=== PATIENT | female | born 1965 | race Caucasian/White ===

== ENCOUNTER 2019-05-23 19:44 | Emergency (ER) | payer OTHER ==
--- NOTE | 2019-05-23 20:53 | ED Physician Documentation ---
PD HPI FEVER - Stated complaint Stated Complaint: FLU SYPMTOMS - Chief complaint Chief Complaint: Fever - History obtained from History obtained from: Patient - History of Present Illness Timing - onset: How many days ago (2-3) Timing duration: Days Timing details: Gradual onset, Waxing and waning Pain level max: 0 Pain level now: 0 Associated symptoms: NVD (nausea but denies vomiting and denies diarrhea). No: Chills, Sweats, Sinus pain, Sore throat, Dry cough, Productive cough, Dyspnea, Abdominal pain, Urinary symptoms, Rash/skin lesion Similar symptoms before: Has not had sx before Recently seen: Not recently seen - Additional information Additional information: c/o 2-3 days of nausea which is resulting in poor appetite. She tells me she feels as though she has "the flu" (per patient) but during HPI/ROS, denies fatigue, myalgias, cough, fever, chills, diaphoresis. She feels that if the nausea were controlled she would feel back to baseline. Review of Systems Constitutional: denies: Fever, Chills, Myalgias, Sweats Throat: denies: Sore throat Cardiac: reports: Reviewed and negative Respiratory: reports: Reviewed and negative GI: reports: Nausea. denies: Abdominal Pain, Abdominal Swelling, Vomiting, Constipation, Diarrhea : denies: Dysuria, Frequency PD PAST MEDICAL HISTORY - Past Medical History Cardiovascular: Hypertension Endocrine/Autoimmune: Type 2 diabetes - Past Surgical History Past Surgical History: No - Present Medications Home Medications: Ambulatory Orders Medication Instructions Recorded Confirmed Lisinopril 10 mg PO BID 12/21/13 05/23/19 Metformin HCl 500 mg PO BID 12/21/13 05/23/19 Ondansetron Odt [Zofran] 4 mg TL Q6H PRN #10 tablet 05/23/19 Simvastatin 0 mg PO DAILY 05/23/19 05/23/19 - Allergies Allergies/Adverse Reactions: Allergies Allergy/AdvReac Type Severity Reaction Status Date / Time Penicillins AdvReac Intermediate Nausea Verified 05/23/19 19:50 - Social History Does the pt smoke?: Yes Smoking Status: Former smoker Does the pt drink ETOH?: No Does the pt have substance abuse?: No PD ED PE NORMAL - Vitals Vital signs reviewed: Yes - General General: Alert and oriented X 3, No acute distress, Well developed/nourished - HEENT HEENT: PERRL, EOMI, Moist mucous membranes - Neck Neck: Supple, no meningeal sign - Cardiac Cardiac: RRR, No murmur - Respiratory Respiratory: No respiratory distress, Clear bilaterally - Abdomen Abdomen: Normal bowel sounds, Soft, Non tender, Non distended, No organomegaly - Back Back: No CVA TTP - Derm Derm: Normal color, Warm and dry Results - Vitals Vitals: Vital Signs - 24 hr 05/23/19 05/23/19 05/23/19 19:46 20:02 21:18 Temperature 35.2 C L 102.5 C H 39.6 C H Heart Rate 120 H Respiratory 22 Rate Blood Pressure 145/91 H O2 Saturation 100 05/23/19 05/23/19 21:32 22:04 Temperature 39.2 C H Heart Rate 118 H 116 H Respiratory 16 18 Rate Blood Pressure 102/62 O2 Saturation 98 96 Oxygen O2 Source Room air - Labs Labs: Laboratory Tests 05/23/19 05/23/19 21:16 21:30 POC Whole Bld Glucose 233 H Influenza A (Rapid) Negative Influenza B (Rapid) Negative PD MEDICAL DECISION MAKING - ED course Complexity details: reviewed results, re-evaluated patient, considered differential, d/w patient, d/w family ED course: Despite significant fever in ED, patient is well-appearing and benign exam. Her only c/o is nausea and she is comfortable with d/c after zofran was given. Departure - Departure Disposition: 01 Home, Self Care Clinical Impression: Nausea, Febrile disorder Condition: Good Health Concerns: nausea Plan of Treatment: antinauseant as prescribed Care Goals: symptom control Assessment: see diagnosis Instructions: ED Fever Unconf Cause, ED Nausea Vomiting Follow-Up: Keri Ochoa PA-C [Primary Care Provider] - Within 3 Days Prescriptions: Ondansetron Odt [Zofran] 4 mg TL Q6H PRN #10 tablet PRN Reason: Nausea / Vomiting Discharge Date/Time: 05/23/19 22:08
[2019-05-23] MEDS ORDERED: ONDANSETRON ODT 4 MG TABLET TL STA (21:11)
[2019-05-23] MEDS ORDERED: ONDANSETRON ODT 4 MG Prepack 2 TL STA (21:12)
[2019-05-23] MEDS ORDERED: ACETAMINOPHEN 325 MG TABLET PO STA (21:12)
[2019-05-23 22:08] VITALS: BP 102/62
== END 2019-05-23 22:08 | disposition home or self-care (01) ==
LOC: ED 19:44
DX: R11.0 Nausea (principal); R50.9 Fever, unspecified; I10 Essential (primary) hypertension; E11.9 Type 2 diabetes mellitus without complications; Z79.84 Long term (current) use of oral hypoglycemic drugs; Z87.891 Personal history of nicotine dependence
CPT/HCPCS: 87275; 87276; 99283; 99284; A9270; Q0162

== ENCOUNTER 2019-05-24 11:32 | Inpatient (IN) | payer OTHER ==
[2019-05-24 12:06] LABS: BASOPHILS % (AUTO) 0.8 %; EOSINOPHILS % (AUTO) 1.5 %; HGB - HEMOGLOBIN 14.3 g/dL (12.0-16.0); LYMPHOCYTES % (AUTO) 2.7 %; MEAN CORPUSCULAR HEMOGLOBIN 33.8 pg (27.0-31.0); MEAN CORPUSCULAR HGB CONC 35.4 g/dL (32.0-36.0); MEAN CORPUSCULAR VOLUME 95.5 fL (81.0-99.0); MEAN PLATELET VOLUME 11.4 fL (7.9-10.8); MONOCYTES % (AUTO) 5.7 %; NEUTROPHILS % (AUTO) 88.6 %; PLT - PLATELET COUNT 142 10^3/uL (130-450); RED BLOOD COUNT 4.23 10^6/uL (4.20-5.40); RED CELL DISTRIBUTION WIDTH 13.4 % (12.0-15.0)
[2019-05-24 12:20] LABS: ALBUMIN/GLOBULIN RATIO 0.6 (1.0-2.2); BILIRUBIN,TOTAL 2.7 mg/dL (0.2-1.0); CALCIUM 9.2 mg/dL (8.5-10.3); CREATININE 5.3 mg/dL (0.4-1.0); TOTAL PROTEIN 8.4 g/dL (6.7-8.2)
[2019-05-24] MEDS ORDERED: SODIUM CHLORIDE 0.9% 1,000 ML IV ONE ×2 (12:24)
[2019-05-24 12:29] LABS: ABNORMAL LYMPHS % (MANUAL) 0 %; BAND NEUTROPHILS % (MANUAL) 6 %; DIFFERENTIAL COMMENT MANUAL DIFFERENTIAL; EOSINOPHILS # (MANUAL) 0.5 10^3/uL (0-0.7); LYMPHOCYTES % (MANUAL) 6 %; METAMYELOCYTES % (MANUAL) 2 %; MONOCYTES # (MANUAL) 1.3 10^3/uL (0.0-1.0); PLATELET ESTIMATE, MANUAL NORMAL (130-450,000) (NORMAL); PLATELET MORPHOLOGY NORMAL APPEARANCE (NORMAL); RBC MORPHOLOGY (MULTIPLE) NORMAL APPEARANCE (NORMAL)
--- NOTE | 2019-05-24 12:42 | ED Physician Documentation ---
History of Present Illness - Stated complaint Stated Complaint: N/V/WEAKNESS - Chief complaint Chief Complaint: Fever - History obtained from History obtained from: Patient, Family - History of Present Illness Timing: How many days ago (4) Pain level max: 0 Pain level now: 0 Improved by: nothing Worsened by: eating - Additonal information Additional information: fever, chills, vomiting x 4 days. States given zofran yesterday. No chest pain. No diarrhea. no constipation. No abd pain. No chest pain. States unable to urinate. hx heavy etoh use. States 5-6 drinks per day and quit several days ago. Review of Systems Ten Systems: 10 systems reviewed and negative Constitutional: reports: Fever Ears: denies: Ear pain Nose: denies: Rhinorrhea / runny nose, Congestion Cardiac: denies: Chest pain / pressure Respiratory: denies: Cough GI: reports: Nausea, Vomiting. denies: Abdominal Pain, Diarrhea, Hematemesis, Bloody / black stool : denies: Dysuria Skin: denies: Rash Musculoskeletal: denies: Neck pain, Back pain Neurologic: denies: Headache PD PAST MEDICAL HISTORY - Past Medical History Past Medical History: Yes Cardiovascular: Hypertension Endocrine/Autoimmune: Type 2 diabetes - Past Surgical History Past Surgical History: No - Present Medications Home Medications: Ambulatory Orders Medication Instructions Recorded Confirmed Metformin HCl 500 mg PO BIDWM 12/21/13 05/24/19 Simvastatin 20 mg PO QPM 05/23/19 05/24/19 Lisinopril 20 mg PO BID 05/24/19 05/24/19 - Allergies Allergies/Adverse Reactions: Allergies Allergy/AdvReac Type Severity Reaction Status Date / Time Penicillins AdvReac Intermediate Nausea Verified 05/24/19 11:43 - Social History Does the pt smoke?: Yes Smoking Status: Current every day smoker Does the pt drink ETOH?: No Does the pt have substance abuse?: No PD ED PE NORMAL - Vitals Vital signs reviewed: Yes - General General: Alert and oriented X 3, No acute distress - HEENT HEENT: PERRL, Ears normal, Moist mucous membranes, Pharynx benign - Neck Neck: Supple, no meningeal sign - Cardiac Cardiac: RRR - Respiratory Respiratory: No respiratory distress, Clear bilaterally - Abdomen Abdomen: Soft, Non tender, Other (mild distention) - Back Back: No CVA TTP, No spinal TTP - Derm Derm: Warm and dry - Extremities Extremities: No edema, No calf tenderness / cord - Neuro Neuro: Alert and oriented X 3 - Psych Psych: Normal mood, Normal affect Results - Vitals Vitals: Vital Signs - 24 hr 05/24/19 05/24/19 11:39 13:25 Temperature 36.6 C 37.4 C Heart Rate 110 H 114 H Respiratory 19 18 Rate Blood Pressure 109/66 102/71 O2 Saturation 98 100 Oxygen O2 Source Room air - Labs Labs: Laboratory Tests 05/24/19 05/24/19 05/24/19 11:58 11:58 11:58 WBC 16.0 H RBC 4.23 Hgb 14.3 Hct 40.4 MCV 95.5 MCH 33.8 H MCHC 35.4 RDW 13.4 Plt Count 142 MPV 11.4 H Neut # (Auto) Not Reportable Lymph # (Auto) Not Reportable Leon # (Auto) Not Reportable Eos # (Auto) Not Reportable Baso # (Auto) Not Reportable Absolute Nucleated RBC Not Reportable Total Counted 100 Band Neuts % (Manual) 6 Abnorm Lymph % (Manual) 0 Metamyelocytes % 2 H Nucleated RBC % Not Reportable Neutrophils # (Manual) 13.0 H Lymphocytes # (Manual) 1.0 L Monocytes # (Manual) 1.3 H Eosinophils # (Manual) 0.5 Basophils # (Manual) 0.0 Differential Comment MANUAL DIFFERENTIAL Manual Slide Review Indicated Platelet Estimate NORMAL (130-450,000) Platelet Morphology NORMAL APPEARANCE RBC Morph Micro Appear NORMAL APPEARANCE PT 19.0 H INR 1.7 H APTT 31.0 Sodium 127 L Potassium 5.2 H Chloride 89 L Carbon Dioxide 17 L Anion Gap 21.0 H BUN 79 H Creatinine 5.3 H Estimated GFR (MDRD) 8 L Glucose 230 H Lactic Acid Calcium 9.2 Total Bilirubin 2.7 H AST 31 ALT 24 Alkaline Phosphatase 52 Total Protein 8.4 H Albumin 3.0 L Globulin 5.4 H Albumin/Globulin Ratio 0.6 L Lipase 15 L 05/24/19 12:45 WBC RBC Hgb Hct MCV MCH MCHC RDW Plt Count MPV Neut # (Auto) Lymph # (Auto) Leon # (Auto) Eos # (Auto) Baso # (Auto) Absolute Nucleated RBC Total Counted Band Neuts % (Manual) Abnorm Lymph % (Manual) Metamyelocytes % Nucleated RBC % Neutrophils # (Manual) Lymphocytes # (Manual) Monocytes # (Manual) Eosinophils # (Manual) Basophils # (Manual) Differential Comment Manual Slide Review Platelet Estimate Platelet Morphology RBC Morph Micro Appear PT INR APTT Sodium Potassium Chloride Carbon Dioxide Anion Gap BUN Creatinine Estimated GFR (MDRD) Glucose Lactic Acid 4.8 H* Calcium Total Bilirubin AST ALT Alkaline Phosphatase Total Protein Albumin Globulin Albumin/Globulin Ratio Lipase - Rads (name of study) CT abd/pelvis Radiology: Prelim report reviewed, EMP read contemporaneously, See rad report (Bilateral mild hydronephrosis with moderate perinephric periureteral fat stranding. No ureteral calculi. Findings worrisome for bilateral pyelonephritis) PD MEDICAL DECISION MAKING - ED course Complexity details: reviewed results, re-evaluated patient, considered differential, d/w patient, d/w family, d/w garden consultant ED course: 54-year-old female with bilateral pyelonephritis and sepsis. Acute kidney injury. Given IV fluids, IV antibiotics. Will admit for further care. 2 IVs were placed. Sepsis protocol followed. Discussed the case with Dr. Lyon who accepts This document was made in part using voice recognition software. While efforts are made to proofread this document, sound alike and grammatical errors may occur. - Sepsis Event Current Stage of Sepsis: Sepsis Possible source of Sepsis: Genitourinary Mental/Cognitive Status: Alert/Oriented X3 Capillary refill: Less than 2 seconds Peripheral Pulse Strength: 2+ Slightly Diminished Peripheral Pulse Location: Radial Bedside ultrasound performed: No Departure - Departure Disposition: 66 [facility] DC/Xfer Clinical Impression: Pyelonephritis, Dehydration, Hyponatremia, Hyperkalemia Sepsis Qualifiers: Sepsis type: sepsis due to unspecified organism Qualified Code(s): A41.9 - Sepsis, unspecified organism Acute renal failure Qualifiers: Acute renal failure type: unspecified Qualified Code(s): N17.9 - Acute kidney failure, unspecified Vomiting Qualifiers: Vomiting type: unspecified Vomiting Intractability: non-intractable Nausea presence: with nausea Qualified Code(s): R11.2 - Nausea with vomiting, unspecified Hyperglycemia due to type 2 diabetes mellitus Qualifiers: Diabetes mellitus oil heaterman insulin use: without oil heaterman use Qualified Code(s): E11.65 - Type 2 diabetes mellitus with hyperglycemia Condition: Stable Discharge Date/Time: 05/24/19 14:04
[2019-05-24 13:05] LABS: INR 1.7 (0.8-1.2)
[2019-05-24] MEDS ORDERED: SODIUM CHLORIDE 0.9% 2,177.25 ML IV STA (13:05)
[2019-05-24] MEDS ORDERED: cefTRIAXone 1 GM VIAL IVP STA ×2 (13:05→13:13)
--- NOTE | 2019-05-24 13:27 | CT Report ---
Reason: abd pain, vomiting Procedure Date: 05/24/2019 Accession Number: [id number] / [id number] Procedure: CT - Abdomen/Pelvis WO CPT Code: FULL RESULT: EXAM: CT ABDOMEN AND PELVIS (CT KUB) EXAM DATE: 05/24/2019 12:45 PM. CLINICAL HISTORY: Abd pain, vomiting. COMPARISONS: ABDOMEN/PELVIS W/ 03/04/2015 12:08 PM. TECHNIQUE: Routine axial helical CT imaging was performed through the abdomen and pelvis without IV contrast. Reconstructions: Coronal and sagittal. In accordance with CT protocol optimization, one or more of the following dose reduction techniques were utilized for this exam: automated exposure control, adjustment of mA and/or KV based on patient size, or use of iterative reconstructive technique. FINDINGS: Lung Bases: Unremarkable. Right Kidney/Ureter: No stones. Mild hydronephrosis and moderate perinephric/periureteral fat stranding. Left Kidney/Ureter: No stones. Mild hydronephrosis and moderate perinephric/periureteral fat stranding. Other Solid Organs: Nodular liver contour. Gallbladder/Bile Ducts: Unremarkable. Peritoneal Cavity: No small bowel obstruction. Normal-appearing appendix. Sigmoid diverticulosis. Pelvic Organs: Urinary bladder is decompressed. No bladder stones. Noncontrast images of the visualized pelvic organs are unremarkable. Vasculature: Unremarkable. Other: None. IMPRESSION: Bilateral mild hydronephrosis with moderate perinephric/periureteral fat stranding. No urinary calculi. Findings worrisome for bilateral pyelonephritis. [facility] The call report notification system was initiated by Dr. Joyce Villanueva at 01:19 PM on 05/24/2019. The above call report findings were discussed with Bao Bonds by Dr. Joyce Villanueva at 01:25 PM on 05/24/2019.
--- NOTE | 2019-05-24 15:54 | HISTORY & PHYSICAL EXAMINATION ---
Chief Complaint - Chief Complaint Chief Complaint: Fever, Nausea/Vomiting <Augusto Berumen - Last Filed: 05/24/19 17:51> History of Present Illness - Admitted From Admitted From:: Home - History Obtained From History obtained from: Patient <Augusto Berumen - Last Filed: 05/24/19 17:51> - History Obtained From Records Reviewed: yes Exam Limitations: none <Lila Sarmiento Jennifer - Last Filed: 05/24/19 18:54> - History of Present Illness HPI Comment/Other: Mrs. Bose was in her usual state of health until evening when she began to feel weak, "shaky", nauseated and had vomiting. She has had minimal PO intake since late on and is very dehydrated. She came to the ED last night and was sent home with PO zofran for the nausea which she reports did not help at all. She has not had a BM in 3-4 days and urine output is very low volume and brown in color, though she has the sensation that she needs to urinate. She denies any pain and has NO CVA tenderness or suprapubic pain on assessment. She has a PMH of SEGUN w/ CPAP, DMT2, HTN, and HLD for which she is on metformin, lisinopril and simvastatin. CT abdomen/pelvis shows mild hydronephrosis, negative for stones, but concerning for pyelonephritis. (Augusto Berumen) I personally examined the patient with the nurse practitioner student and agree with her findings. (Lila Sarmiento Jennifer) History - Past Medical History Cardiovascular: reports: Hypertension, High cholesterol Respiratory: reports: Sleep apnea, CPAP use (SEGUN) Neuro: reports: None Endocrine/Autoimmune: reports: Type 2 diabetes GI: reports: None : reports: None HEENT: reports: Chronic vision loss (has glasses for reading) Psych: reports: None Musculoskeletal: reports: None Derm: reports: None - Family & Social History Family History: Mother: Alive and Well, Father: ( at 86 of pancreatic CA) Family History Comment/Other: No siblings. 2 healthy children. Living arrangement: At home Living Situation: With spouse/s.o. 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 - Substance History Use: Uses substance without health or social issues: Tobacco, Alcohol Tobacco Details: Cigarettes (20 year pack history, recently cut back to 3 cigarettes/day) <Augusto Berumen - Last Filed: 05/24/19 17:51> Meds/Allgy <Augusto Berumen - Last Filed: 05/24/19 17:51> <Lila Sarmiento - Last Filed: 05/24/19 18:54> - Home Medications Home Medications: Ambulatory Orders Medication Instructions Recorded Confirmed Metformin HCl 500 mg PO BIDWM 12/21/13 05/24/19 Simvastatin 20 mg PO QPM 05/23/19 05/24/19 Lisinopril 20 mg PO BID 05/24/19 05/24/19 - Allergies Allergies/Adverse Reactions: Allergies Allergy/AdvReac Type Severity Reaction Status Date / Time Penicillins AdvReac Intermediate Nausea Verified 05/24/19 11:43 Review of Systems - Constitutional Constitutional: reports: Fatigue, Fever, Weakness - Eyes Eyes: reports: Vision loss - Ears, Nose & Throat Ears, Nose & Throat: reports: Nasal discharge, Other (dry eyes w/ tearing) - Respiratory Respiratory: reports: Cough, SOB with exertion - Gastrointestinal Gastrointestinal: reports: Nausea, Vomiting - Genitourinary Genitourinary: reports: Other (Oliguria, dark brown in color) - Musculoskeletal Musculoskeletal: reports: Muscle weakness - Neurological Neurological: reports: General weakness - Endocrine Endocrine: reports: Polydypsia - All Other Systems All Other Systems: reports: Reviewed and negative <Augusto Berumen - Last Filed: 05/24/19 17:51> - Constitutional Constitutional: reports: Fatigue, Fever, Weakness - Eyes Eyes: reports: Vision loss - Ears, Nose & Throat Ears, Nose & Throat: reports: Nasal discharge, Other - Cardiovascular Cariovascular: reports: Lightheadedness, Decr. exercise tolerance - Respiratory Respiratory: reports: Cough, SOB with exertion - Gastrointestinal Gastrointestinal: reports: Nausea, Vomiting - Genitourinary Genitourinary: reports: Other - Musculoskeletal Musculoskeletal: reports: Muscle weakness - Integumentary Integumentary: reports: Dryness - Neurological Neurological: reports: General weakness, Dizziness - Psychiatric Psychiatric: reports: Depression - Endocrine Endocrine: reports: Polydypsia - Hematologic/Lymphatic Hematologic/Lymphatic: reports: Anemia - All Other Systems All Other Systems: reports: Reviewed and negative <Lila Sarmiento - Last Filed: 05/24/19 18:54> <Augusto Berumen - Last Filed: 05/24/19 17:51> Prior Level of Functionality: Independent in ADLs (AtaAugusto) Exam - Vital Signs Reviewed Vital Signs: Yes - Physical Exam General Appearance: positive: No acute distress, Alert, Other (Obese woman, appears stated age) Eyes Bilateral: positive: Normal inspection, PERRL, No lid inflammation, Conjunctivae nml, No scleral icterus ENT: positive: No signs of dehydration Neck: positive: Nml inspection, No JVD, Trachea midline. negative: Stiff neck Respiratory: positive: Chest non-tender, No respiratory distress, Breath sounds nml Cardiovascular: positive: Regular rate & rhythm, Systolic murmur. negative: JVD present Peripheral Pulses: positive: 2+ Abdomen: positive: Non-tender, Nml bowel sounds, No distention, Hepatomegaly, Other Back: positive: Nml inspection. negative: CVA tenderness (R), CVA tenderness (L) Skin: positive: Color nml, No rash, Warm, Dry Extremities: positive: Non-tender, Full ROM, Nml appearance, No pedal edema Neurologic/Psychiatric: positive: Oriented x3, CN's nml (2-12), Motor nml, Sensation nml, Mood/affect nml. negative: Facial droop, Slurred/abnml speech <Augusto Berumen - Last Filed: 05/24/19 17:51> - Vital Signs Reviewed Vital Signs: Yes - Physical Exam General Appearance: positive: No acute distress, Alert, Other Eyes Bilateral: positive: Normal inspection, PERRL, No lid inflammation, Conj unctivae nml, No scleral icterus ENT: positive: No signs of dehydration Neck: positive: Nml inspection, No JVD, Trachea midline. negative: Stiff neck Respiratory: positive: Chest non-tender, No respiratory distress, Breath sounds nml Cardiovascular: positive: Regular rate & rhythm, Systolic murmur. negative: JVD present Peripheral Pulses: positive: 2+ Abdomen: positive: Non-tender, Nml bowel sounds, Hepatomegaly. negative: No distention Back: positive: Nml inspection. negative: CVA tenderness (R), CVA tenderness (L) Skin: positive: Color nml, No rash, Warm, Dry Extremities: positive: Non-tender, Full ROM, Nml appearance, No pedal edema Neurologic/Psychiatric: positive: Oriented x3, CN's nml (2-12), Motor nml, Sensation nml, Mood/affect nml Reflexes: Bicep (R): 3+, Bicep (L): 3+ <Lila Sarmiento Jennifer - Last Filed: 05/24/19 18:54> - Vital Signs Vital Signs: Vital Signs x48h Temp Pulse Pulse Resp BP BP Pulse Ox 05/24/19 14:43 37.4 C 110 H 20 100 05/24/19 14:30 38.5 C H 101 H 98 H 105/60 16 L 05/24/19 13:25 37.4 C 114 H 18 102/71 100 05/24/19 11:39 36.6 C 110 H 19 109/66 98 Sepsis Event Note (H) - Evaluation Current Stage of Sepsis: Sepsis Possible source of Sepsis: positive: Genitourinary - Sepsis Criteria Sepsis Criteria: Recorded Temperature greater than 38.3C or Less than 36C, Recorded Heart Rate greater than 90 bpm, WBC count greater than 10% bands, WBC count greater than 12,000 or less than 4000, Renal: urine output less than 0.5ml/kg/hr for 2 hours or creatinine gr, Metabolic: lactate > 2 mmol/L, Hepatic: Bilirubin greater than 2mg/dl <Augusto Berumen - Last Filed: 05/24/19 17:51> - Evaluation Sepsis Associated Organ Dysfunction: Liver: Tbili elevated to 2.7 Kidneys: BUN 38, Crea 5.3, Minimal UoP >2 days (Augusto Berumen) Conclusion/Plan - Problem List (1) Sepsis Conclusion/Plan: WBC 16k with L shift, neutrophils 13k. She was febrile in the ED up to 38.5, and tachycardic in 110s. End organ damaged evidenced by elevated Tbili of 2.7 and BU N & Crea 38 and 5.3 respectively. She has been oliguric for >2 days and reports a low volume, brown urine output. CT Abd/Pelvis is suspicious for pyelonephritis. There is no suprapubic pain on palpation, and no CVA tenderness bilaterally. She received 2L NS and 1gm ceftriaxone in the ED. Plan: -Cerrato catheter to obtain a urine analysis & culture. Keep in for strict I&Os. -Continue IVF NS at 150ml/hr -Empiric antibiotics with ceftriaxone IV x14 days (can switch to PO when patient's symptoms resolve and afebrile [id number]) Qualifiers: Sepsis type: sepsis due to unspecified organism Qualified Code(s): A41.9 - Sepsis, unspecified organism (2) Pyelonephritis Conclusion/Plan: Suspected due to BUN/Crea, oliguria, and CT abd/pelvis as mentioned above. Plan: -Obtain UA/C, treat with empiric Abx, Cerrato catheter, IVF, and specify Abx regimen upon identification of infectious source (3) Dehydration Conclusion/Plan: In setting of minimal to no PO intake in >3 days. She also is hyponatremic and hyperkalemic. Plan: -IV hydration (4) Hyponatremia Conclusion/Plan: Na 127 on admission. Likely in setting of hypovolemia. Consistent with patient history of nausea, vomiting and decreased PO intake. No neurological deficits or AMS at this time . Likely to resolve with IVF and with resuming oral diet. Plan: -IVF with NS -Repeat BMP in the AM (5) Hyperkalemia Conclusion/Plan: K elevated at 5.3. Probably in relation to her severe dehydration and JEFFY. Plan: -Treat dehydration per above -Recheck BMP in am -Obtain EKG to rule out any cardiac abnormalities with electrolyte derangement -Monitor on telemetry overnight (6) Type 2 diabetes mellitus Conclusion/Plan: Controlled in outpatient setting on metformin. Does not use insulin at home. blood glucose elevated to 230 on admission. Likely elevated in setting of acute infectious process. Plan: -HOLD metformin as this would worsen her lactic acidosis -Accu checks AC/HS with insulin aspart low dose sliding scale per protocol -Goal blood sugars <180 Qualifiers: Diabetes mellitus prison insulin use: without prison use Diabetes mellitus complication status: with hyperglycemia Qualified Code(s): E11.65 - Type 2 diabetes mellitus with hyperglycemia (7) Hypertension Conclusion/Plan: Blood pressures are running low 100s/70s. On lisinopril at home. Plan: -In setting of JEFFY and sepsis, will hold home lisinopril and resume when medically appropriate (8) Hyperlipidemia Conclusion/Plan: No recent lipids/triglycerides found in medical record. Last documented in 2014 shows elevated triglycerides and low HDL. Total [id number]=148 with LDL/HDL ratio 5.2. She is on simvastatin at home. Not currently having any concerning signs/symptoms of cardiac events. 10 year ASCVD score: 7.5% Plan: -Will hold simvastatin acutely until hepatic and renal function improves -Follow up in outpatient with PCP Qualifiers: Hyperlipidemia type: mixed hyperlipidemia Qualified Code(s): E78.2 - Mixed hyperlipidemia - Lab Results Lab results reviewed: Yes Fish Bones: 05/24/19 11:58 05/24/19 11:58 - Diagnostic Imaging Results Diagnostic Imaging Results: positive: Final report reviewed (CT non con Abd/Pelvis shows signs of hydronephrosis, negative for stones. Suspicious for pyelonephritis) <Augusto Berumen - Last Filed: 05/24/19 17:51> - Problem List (1) Sepsis Conclusion/Plan: See above, except, plan to change IV Rocephin based on urine culture sensitivities, and IVFs at 125 mL per hour. Lactic acid pending Q6H until normal Qualifiers: Sepsis type: sepsis due to unspecified organism Qualified Code(s): A41.9 - Sepsis, unspecified organism (2) Pyelonephritis Conclusion/Plan: Based on imaging, IV Rocephin, urine culture is pending. No flank pain, no dysuria, now with a cerrato (3) Type 2 diabetes mellitus Conclusion/Plan: Holding metformin, SSI and carb control diet Checking A1C in the AM Qualifiers: Diabetes mellitus prison insulin use: without buttermaker use Diabetes mellitus complication status: with hyperglycemia Qualified Code(s): E11.65 - Type 2 diabetes mellitus with hyperglycemia (4) Nausea Conclusion/Plan: - Poor appetite for the past several days - Likely due to acute infection - Nausea resolved on exam Plan: Encourage PO diet, treat symptoms (5) Acute renal failure Conclusion/Plan: - Creatinine of 5.3, baseline last known was ~1.0 - Elevated BUN of 79 - Suspect due to pyelonephritis, dehydration - Holding lisinopril, avoid nephrotoxins - IV fluids at 125 mL per hour Plan: continue IV fluids, routine labs in the AM Qualifiers: Acute renal failure type: unspecified Qualified Code(s): N17.9 - Acute kidney failure, unspecified (6) SEGUN on CPAP Conclusion/Plan: - Patient has brought in her home CPAP implying compliance Plan: order home cpap (7) Hyperlipidemia Qualifiers: Hyperlipidemia type: mixed hyperlipidemia Qualified Code(s): E78.2 - Mixed hyperlipidemia - Lab Results Lab results reviewed: Yes Fish Bones: 05/24/19 11:58 05/24/19 11:58 - Diagnostic Imaging Results Diagnostic Imaging Results: positive: Final report reviewed <Lila Sarmiento - Last Filed: 05/24/19 18:54> - Lab Results Other Lab Results: Laboratory Tests 05/24/19 05/24/19 05/24/19 11:58 11:58 11:58 WBC 16.0 H RBC 4.23 Hgb 14.3 Hct 40.4 MCV 95.5 MCH 33.8 H MCHC 35.4 RDW 13.4 Plt Count 142 MPV 11.4 H Neut # (Auto) Not Reportable Lymph # (Auto) Not Reportable [place] # (Auto) Not Reportable Eos # (Auto) Not Reportable Baso # (Auto) Not Reportable Absolute Nucleated RBC Not Reportable Total Counted 100 Band Neuts % (Manual) 6 Abnorm Lymph % (Manual) 0 Metamyelocytes % 2 H Nucleated RBC % Not Reportable Neutrophils # (Manual) 13.0 H Lymphocytes # (Manual) 1.0 L Monocytes # (Manual) 1.3 H Eosinophils # (Manual) 0.5 Basophils # (Manual) 0.0 Differential Comment MANUAL DIFFERENTIAL Manual Slide Review Indicated Platelet Estimate NORMAL (130-450,000) Platelet Morphology NORMAL APPEARANCE RBC Morph Micro Appear NORMAL APPEARANCE PT 19.0 H INR 1.7 H APTT 31.0 Sodium 127 L Potassium 5.2 H Chloride 89 L Carbon Dioxide 17 L Anion Gap 21.0 H BUN 79 H Creatinine 5.3 H Estimated GFR (MDRD) 8 L Glucose 230 H Lactic Acid Calcium 9.2 Total Bilirubin 2.7 H AST 31 ALT 24 Alkaline Phosphatase 52 Total Protein 8.4 H Albumin 3.0 L Globulin 5.4 H Albumin/Globulin Ratio 0.6 L Lipase 15 L Urine Color Urine Clarity Urine pH Ur Specific [place] Urine Protein Urine Glucose (UA) Urine Ketones Urine Occult Blood Urine Nitrite Urine Bilirubin Urine Urobilinogen Ur Leukocyte Esterase Urine RBC Urine WBC Ur Squamous Epith Cells Amorphous Sediment Urine Bacteria Ur Microscopic Review Urine Culture Comments Urine Opiates Screen Ur Oxycodone Screen Urine Methadone Screen Ur Propoxyphene Screen Ur Barbiturates Screen Ur Tricyclics Screen Ur Phencyclidine Scrn Ur Amphetamine Screen U Methamphetamines Scrn U Benzodiazepines Scrn Urine Cocaine Screen U Cannabinoids Screen 05/24/19 05/24/19 12:45 16:15 WBC RBC Hgb Hct MCV MCH MCHC RDW Plt Count MPV Neut # (Auto) Lymph # (Auto) [place] # (Auto) Eos # (Auto) Baso # (Auto) Absolute Nucleated RBC Total Counted Band Neuts % (Manual) Abnorm Lymph % (Manual) Metamyelocytes % Nucleated RBC % Neutrophils # (Manual) Lymphocytes # (Manual) Monocytes # (Manual) Eosinophils # (Manual) Basophils # (Manual) Differential Comment Manual Slide Review Platelet Estimate Platelet Morphology RBC Morph Micro Appear PT INR APTT Sodium Potassium Chloride Carbon Dioxide Anion Gap BUN Creatinine Estimated GFR (MDRD) Glucose Lactic Acid 4.8 H* Calcium Total Bilirubin AST ALT Alkaline Phosphatase Total Protein Albumin Globulin Albumin/Globulin Ratio Lipase Urine Color ORANGE Urine Clarity CLOUDY Urine pH 6.0 Ur Specific [place] 1.020 Urine Protein 100 H Urine Glucose (UA) NEGATIVE Urine Ketones NEGATIVE Urine Occult Blood LARGE H Urine Nitrite NEGATIVE Urine Bilirubin NEGATIVE Urine Urobilinogen 1 (NORMAL) Ur Leukocyte Esterase TRACE H Urine RBC 6-10 H Urine WBC >25 H Ur Squamous Epith Cells FEW Squamous Amorphous Sediment Marked Urine Bacteria Many H Ur Microscopic Review INDICATED Urine Culture Comments INDICATED Urine Opiates Screen NEGATIVE Ur Oxycodone Screen NEGATIVE Urine Methadone Screen NEGATIVE Ur Propoxyphene Screen NEGATIVE Ur Barbiturates Screen NEGATIVE Ur Tricyclics Screen NEGATIVE Ur Phencyclidine Scrn NEGATIVE Ur Amphetamine Screen NEGATIVE U Methamphetamines Scrn NEGATIVE U Benzodiazepines Scrn NEGATIVE Urine Cocaine Screen NEGATIVE U Cannabinoids Screen NEGATIVE (Augusto Berumen) - Diagnostic Imaging Results Diagnostic Imaging Results Comments: EXAM: CT ABDOMEN AND PELVIS (CT KUB) EXAM DATE: 05/24/2019 12:45 PM. IMPRESSION: Bilateral mild hydronephrosis with moderate perinephric/periureteral fat stranding. No urinary calculi. Findings worrisome for bilateral py elonephritis. (Lila Sarmiento) - EKG Results EKG Findings: No EKG done in ED, will order now (Augusto Berumen) Core Measures - Anticipated LOS I expect patient to be DC'd or transferred within 96 hours.: Yes - DVT/VTE - Prophylaxis VTE/DVT Device ordered at admit?: Yes <Augusto Berumen - Last Filed: 05/24/19 17:51> - Anticipated LOS I expect patient to be DC'd or transferred within 96 hours.: Yes - DVT/VTE - Prophylaxis VTE/DVT Device ordered at admit?: Yes VTE/DVT Prophylaxis med ordered at admit?: No Not Ordered - Medical Reason: Contraindicated - Stroke - Rehab Assessment Rehab services assessment to be ordered?: No Not Ordered - Medical Reason: Contraindicated - AMI - Statin at Admit Aspirin Prescribed on Admit: No Not Ordered - Medical Reason: Contraindicated <Lila Sarmiento - Last Filed: 05/24/19 18:54>
[2019-05-24 16:26] LABS: BILIRUBIN,URINE NEGATIVE (NEGATIVE); GLUCOSE, URINE (UA) NEGATIVE (NEGATIVE); KETONES,URINE (UA) NEGATIVE (NEGATIVE); LEUKOCYTE ESTERASE, URINE TRACE (NEGATIVE); MUDS CUTOFF CONCENTRATIONS CUTOFF CONC BELOW:; NITRITE,URINE NEGATIVE (NEGATIVE); OCCULT BLOOD,URINE LARGE (NEGATIVE); PROTEIN,URINE 100 mg/dL (NEGATIVE); UROBILINOGEN,URINE 1 (NORMAL) E.U./dL (NORMAL)
[2019-05-24 16:35] LABS: CLARITY,URINE CLOUDY (CLEAR)
[2019-05-24 16:36] LABS: AMORPHOUS SEDIMENT,UR Marked /LPF; BACTERIA,URINE Many /HPF (None Seen); SQUAMOUS EPITHELIAL CELL,UR FEW Squamous (<= Few)
[2019-05-24 16:38] LABS: AMPHETAMINE SCREEN,URINE NEGATIVE (NEGATIVE); BENZODIAZEPINES SCREEN, URINE NEGATIVE (NEGATIVE); COCAINE SCREEN URINE NEGATIVE (NEGATIVE); METHADONE SCREEN, URINE NEGATIVE (NEGATIVE); METHAMPHETAMINES SCREEN, URINE NEGATIVE (NEGATIVE); OPIATE SCREEN, URINE NEGATIVE (NEGATIVE); OXYCODONE SCREEN, URINE NEGATIVE (NEGATIVE); PROPOXYPHENE SCREEN, URINE NEGATIVE (NEGATIVE); TRICYCLIC ANTIDEPRESSANT,URINE NEGATIVE (NEGATIVE)
[2019-05-24] MEDS: SODIUM CHLORIDE FLUSH 0.9% 10 ML SYRINGE IVP SCH (17:02)
[2019-05-24] MEDS: ACETAMINOPHEN 325 MG TABLET PO PRN (21:25)
[2019-05-24] MEDS: INSULIN ASPART 300 UNIT/3 ML PEN SUBQ SCH (21:25)
[2019-05-24] MEDS: INSULIN GLARGINE 300 UNIT/3 ML PEN SUBQ SCH (21:26)
[2019-05-24] MEDS: SODIUM CHLORIDE 0.9% 1,000 ML IV SCH (21:37)
[2019-05-24] MEDS ORDERED: CEFEPIME 1 GM in SODIUM CHLORIDE 0.9% MINIBAG 100 ML IV SCH (23:00)
[2019-05-25] MEDS: SODIUM CHLORIDE FLUSH 0.9% 10 ML SYRINGE IVP SCH ×4 (00:53→23:47)
[2019-05-25 01:18] LABS: CALCIUM 8.1 mg/dL (8.5-10.3); CREATININE 5.1 mg/dL (0.4-1.0)
[2019-05-25] MEDS: ACETAMINOPHEN 325 MG TABLET PO PRN (05:19)
[2019-05-25 05:29] LABS: BASOPHILS % (AUTO) 0.1 %; EOSINOPHILS % (AUTO) 1.1 %; HGB - HEMOGLOBIN 13.8 g/dL (12.0-16.0); LYMPHOCYTES % (AUTO) 2.9 %; MEAN CORPUSCULAR HEMOGLOBIN 33.4 pg (27.0-31.0); MEAN CORPUSCULAR HGB CONC 34.8 g/dL (32.0-36.0); MEAN CORPUSCULAR VOLUME 95.9 fL (81.0-99.0); MEAN PLATELET VOLUME 12.1 fL (7.9-10.8); MONOCYTES % (AUTO) 5.2 %; NEUTROPHILS % (AUTO) 90.1 %; PLT - PLATELET COUNT 86 10^3/uL (130-450); RED BLOOD COUNT 4.13 10^6/uL (4.20-5.40); WHITE BLOOD COUNT 12.5 x10^3/uL (4.8-10.8)
[2019-05-25] MEDS: SODIUM CHLORIDE FLUSH 0.9% 10 ML SYRINGE IVP PRN ×2 (05:31→09:11)
[2019-05-25 05:42] LABS: CALCIUM 8.2 mg/dL (8.5-10.3)
[2019-05-25 05:43] LABS: ALBUMIN 2.6 g/dL (3.2-5.5); ALBUMIN/GLOBULIN RATIO 0.6 (1.0-2.2); BILIRUBIN,TOTAL 2.6 mg/dL (0.2-1.0); MAGNESIUM 1.4 mg/dL (1.7-2.8); TOTAL PROTEIN 7.1 g/dL (6.7-8.2)
[2019-05-25 05:47] LABS: ABNORMAL LYMPHS % (MANUAL) 0 %
[2019-05-25 05:53] LABS: BAND NEUTROPHILS % (MANUAL) 4 %; LYMPHOCYTES # (MANUAL) 0.5 10^3/uL (1.5-3.5); LYMPHOCYTES % (MANUAL) 4 %; RBC MORPHOLOGY (MULTIPLE) NORMAL APPEARANCE (NORMAL)
[2019-05-25 05:54] LABS: DIFFERENTIAL COMMENT MANUAL DIFFERENTIAL; PLATELET ESTIMATE, MANUAL DECREASED (<130,000) (NORMAL); PLATELET MORPHOLOGY NORMAL APPEARANCE (NORMAL)
[2019-05-25 05:57] LABS: HB2 TOTAL 14.4 g/dL; HEMOGLOBIN A1C 0.92 g/dL
[2019-05-25] MEDS: SODIUM CHLORIDE 0.9% 1,000 ML IV SCH ×4 (06:18→19:39)
[2019-05-25] MEDS ORDERED: ACETAMINOPHEN 325 MG TABLET PO PRN (06:23)
--- NOTE | 2019-05-25 08:37 | PROVIDER PROGRESS NOTE ---
<Augusto Berumen - Last Filed: 05/25/19 19:43> Subjective - Prog Note Date Prog Note Date: 05/25/19 Prog Note Time: 08:35 - Subjective Pt reports feeling: No change (Mrs. Bose feels about the same today, still feeling very weak and fatigued. Her nausea is slightly better, has had no vomitting, but very little to no appetite, though she wants to try eating breakfast this am.) Current Medications - Current Medications Current Medications: Allergies Penicillins Adverse Reaction (Intermediate, Verified 05/24/19 11:43) Nausea Home Medications Metformin HCl 500 mg PO BIDWM 12/21/13 [History Confirmed 05/24/19] Simvastatin 20 mg PO QPM 05/23/19 [History Confirmed 05/24/19] Lisinopril 20 mg PO BID 05/24/19 [History Confirmed 05/24/19] Active Medications Generic Name Dose Route Start Last Admin Trade Name Freq PRN Reason Stop Dose Admin Acetaminophen 650 mg 05/25/19 06:23 Tylenol PO Q4HR PRN Pain or Fever > 38C (100.4F) Cefepime HCl 1 gm/ Sodium 100 mls @ 200 mls/hr 05/24/19 23:00 05/24/19 23:32 Chloride IV Infused HS BOB Infusion Sodium Chloride 1,000 mls @ 150 mls/hr 05/25/19 06:36 05/25/19 06:54 Normal Saline 0.9% IV Not Given .[id number] BOB Insulin Aspart 1 - 5 unit 05/24/19 21:00 05/24/19 21:25 Novolog SUBQ 1 unit 0800,1200,1700,2100 BOB Administration Protocol Insulin Glargine 5 unit 05/24/19 21:00 05/24/19 21:26 Lantus Solostar SUBQ 5 unit QPM BOB Administration Polyethylene Glycol 17 gm 05/25/19 09:00 Miralax PO DAILY BOB Sodium Chloride 10 ml 05/24/19 13:40 05/25/19 05:31 Normal Saline Flush 0.9% IVP 10 ml PRN PRN Administration NEEDED PER PROVIDER ORDERS Sodium Chloride 10 ml 05/24/19 17:00 05/25/19 05:25 Normal Saline Flush 0.9% IVP 10 ml 0100,0900,1700 BOB Administration Objective - Vital Signs/Intake & Output Reviewed Vital Signs: Yes Vital Signs: Vital Signs x48h Temp Pulse Resp BP Pulse Ox 05/25/19 07:55 37.5 C 99 18 133/72 H 98 05/25/19 05:05 38.1 C H 103 H 18 134/75 H 99 Intake & Output: Intake & Output 05/22/19 05/23/19 05/24/19 05/25/19 23:59 23:59 23:59 23:59 Intake Total 4615.583 1667.50 Output Total 250 275 Balance 4365.583 1392.50 - Objective General Appearance: positive: No acute distress, Alert Eyes Bilateral: positive: Normal inspection, PERRL, EOMI, No lid inflammation, Conjunctivae nml, No scleral icterus ENT: positive: No signs of dehydration Neck: positive: Nml inspection, No JVD, Trachea midline Respiratory: positive: Chest non-tender, No respiratory distress, Breath sounds nml Cardiovascular: positive: Regular rate & rhythm, No gallop, Systolic murmur Peripheral Pulses: 1+ Dorsalis pedis (R), 1+ Dorsalis pedis (L), 2+ Radial (R), 2+ Radial (L) Abdomen: positive: Nml bowel sounds, Hepatomegaly, Other (Distention). negative: No distention Back: positive: Nml inspection. negative: CVA tenderness (R), CVA tenderness (L) Skin: positive: Color nml, No rash, Warm, Dry Extremities: positive: Non-tender, Full ROM, Nml appearance, No pedal edema. negative: Calf tenderness Neurologic/Psychiatric: positive: Oriented x3, CN's nml (2-12), Motor nml, Sensation nml, Mood/affect nml, Weakness - Lab Results Fish Bones: 05/25/19 05:20 05/25/19 05:20 Other Labs: Lab Results x24hrs 05/25/19 05/25/19 05/25/19 Range/Units 07:56 05:20 05:20 WBC (4.8-10.8) x10^3/uL RBC (4.20-5.40) 10^6/uL Hgb (12.0-16.0) g/dL Hct (37.0-47.0) % MCV (81.0-99.0) fL MCH (27.0-31.0) pg MCHC (32.0-36.0) g/dL RDW (12.0-15.0) % Plt Count (130-450) 10^3/uL MPV (7.9-10.8) fL Neut # (Auto) Lymph # (Auto) [place] # (Auto) Eos # (Auto) Baso # (Auto) Absolute Nucleated RBC Total Counted Band Neuts % (Manual) (0 - 10) % Abnorm Lymph % (Manual) % Metamyelocytes % ( - 0) % Nucleated RBC % Neutrophils # (Manual) (1.5-6.6) 10^3/uL Lymphocytes # (Manual) (1.5-3.5) 10^3/uL Monocytes # (Manual) (0.0-1.0) 10^3/uL Eosinophils # (Manual) (0-0.7) 10^3/uL Basophils # (Manual) (0-0.1) 10^3/uL Differential Comment Manual Slide Review WBC Morphology (NORMAL) Platelet Estimate (NORMAL) Platelet Morphology (NORMAL) RBC Morph Micro Appear (NORMAL) PT (9.9-12.6) secs INR (0.8-1.2) APTT (24.9-33.3) secs Sodium (135-145) mmol/L Potassium (3.5-5.0) mmol/L Chloride (101-111) mmol/L Carbon Dioxide (21-32) mmol/L Anion Gap (6-13) BUN (6-20) mg/dL Creatinine (0.4-1.0) mg/dL Estimated GFR (MDRD) (>89) Glucose (70-100) mg/dL POC Whole Bld Glucose 144 H (70 - 100) mg/dL Glycated Hemoglobin 8.0 H (4.6-6.2) % Estim Average Glucose 183 H (70-100) Lactic Acid 2.3 H (0.5-2.2) mmol/L Calcium (8.5-10.3) mg/dL Phosphorus (2.5-4.6) mg/dL Magnesium (1.7-2.8) mg/dL Total Bilirubin (0.2-1.0) mg/dL Direct Bilirubin (0.1-0.5) mg/dL AST (10-42) IU/L ALT (10-60) IU/L Alkaline Phosphatase (42-121) IU/L Total Protein (6.7-8.2) g/dL Albumin (3.2-5.5) g/dL Globulin (2.1-4.2) g/dL Albumin/Globulin Ratio (1.0-2.2) Lipase (22-51) U/L Urine Color Urine Clarity (CLEAR) Urine pH (5.0-7.5) PH Ur Specific [place] (1.002-1.030) Urine Protein (NEGATIVE) mg/dL Urine Glucose (UA) (NEGATIVE) mg/dL Urine Ketones (NEGATIVE) mg/dL Urine Occult Blood (NEGATIVE) Urine Nitrite (NEGATIVE) Urine Bilirubin (NEGATIVE) Urine Urobilinogen (NORMAL) E.U./dL Ur Leukocyte Esterase (NEGATIVE) Urine RBC (0-5) /HPF Urine WBC (0-5) /HPF Ur Squamous Epith Cells (<= Few) Amorphous Sediment /LPF Urine Bacteria (None Seen) /HPF Ur Microscopic Review Urine Culture Comments Urine Opiates Screen (NEGATIVE) Ur Oxycodone Screen (NEGATIVE) Urine Methadone Screen (NEGATIVE) Ur Propoxyphene Screen (NEGATIVE) Ur Barbiturates Screen (NEGATIVE) Ur Tricyclics Screen (NEGATIVE) Ur Phencyclidine Scrn (NEGATIVE) Ur Amphetamine Screen (NEGATIVE) U Methamphetamines Scrn (NEGATIVE) U Benzodiazepines Scrn (NEGATIVE) Urine Cocaine Screen (NEGATIVE) U Cannabinoids Screen (NEGATIVE) 05/25/19 05/25/19 05/25/19 Range/Units 05:20 05:20 01:02 WBC 12.5 H (4.8-10.8) x10^3/uL RBC 4.13 L (4.20-5.40) 10^6/uL Hgb 13.8 (12.0-16.0) g/dL Hct 39.6 (37.0-47.0) % MCV 95.9 (81.0-99.0) fL MCH 33.4 H (27.0-31.0) pg MCHC 34.8 (32.0-36.0) g/dL RDW 14.0 (12.0-15.0) % Plt Count 86 L (130-450) 10^3/uL MPV 12.1 H (7.9-10.8) fL Neut # (Auto) Not Reportable Lymph # (Auto) Not Reportable [place] # (Auto) Not Reportable Eos # (Auto) Not Reportable Baso # (Auto) Not Reportable Absolute Nucleated RBC Not Reportable Total Counted 100 Band Neuts % (Manual) 4 (0 - 10) % Abnorm Lymph % (Manual) 0 % Metamyelocytes % ( - 0) % Nucleated RBC % Not Reportable Neutrophils # (Manual) 11.0 H (1.5-6.6) 10^3/uL Lymphocytes # (Manual) 0.5 L (1.5-3.5) 10^3/uL Monocytes # (Manual) 1.0 (0.0-1.0) 10^3/uL Eosinophils # (Manual) 0.0 (0-0.7) 10^3/uL Basophils # (Manual) 0.0 (0-0.1) 10^3/uL Differential Comment MANUAL DIFFERENTIAL Manual Slide Review WBC Morphology NORMAL APPEARANCE (NORMAL) Platelet Estimate DECREASED (<130,000) (NORMAL) Platelet Morphology NORMAL APPEARANCE (NORMAL) RBC Morph Micro Appear NORMAL APPEARANCE (NORMAL) PT (9.9-12.6) secs INR (0.8-1.2) APTT (24.9-33.3) secs Sodium 129 L (135-145) mmol/L Potassium 4.7 (3.5-5.0) mmol/L Chloride 96 L (101-111) mmol/L Carbon Dioxide 17 L (21-32) mmol/L Anion Gap 16.0 H (6-13) BUN 83 H* (6-20) mg/dL Creatinine 5.0 H (0.4-1.0) mg/dL Estimated GFR (MDRD) 9 L (>89) Glucose 156 H (70-100) mg/dL POC Whole Bld Glucose (70 - 100) mg/dL Glycated Hemoglobin (4.6-6.2) % Estim Average Glucose (70-100) Lactic Acid (0.5-2.2) mmol/L Calcium 8.2 L (8.5-10.3) mg/dL Phosphorus 3.0 (2.5-4.6) mg/dL Magnesium 1.4 L (1.7-2.8) mg/dL Total Bilirubin 2.6 H (0.2-1.0) mg/dL Direct Bilirubin 1.3 H (0.1-0.5) mg/dL AST 32 (10-42) IU/L ALT 22 (10-60) IU/L Alkaline Phosphatase 56 (42-121) IU/L Total Protein 7.1 (6.7-8.2) g/dL Albumin 2.6 L (3.2-5.5) g/dL Globulin 4.5 H (2.1-4.2) g/dL Albumin/Globulin Ratio 0.6 L (1.0-2.2) Lipase (22-51) U/L Urine Color Urine Clarity (CLEAR) Urine pH (5.0-7.5) PH Ur Specific [place] (1.002-1.030) Urine Protein (NEGATIVE) mg/dL Urine Glucose (UA) (NEGATIVE) mg/dL Urine Ketones (NEGATIVE) mg/dL Urine Occult Blood (NEGATIVE) Urine Nitrite (NEGATIVE) Urine Bilirubin (NEGATIVE) Urine Urobilinogen (NORMAL) E.U./dL Ur Leukocyte Esterase (NEGATIVE) Urine RBC (0-5) /HPF Urine WBC (0-5) /HPF Ur Squamous Epith Cells (<= Few) Amorphous Sediment /LPF Urine Bacteria (None Seen) /HPF Ur Microscopic Review Urine Culture Comments Urine Opiates Screen (NEGATIVE) Ur Oxycodone Screen (NEGATIVE) Urine Methadone Screen (NEGATIVE) Ur Propoxyphene Screen (NEGATIVE) Ur Barbiturates Screen (NEGATIVE) Ur Tricyclics Screen (NEGATIVE) Ur Phencyclidine Scrn (NEGATIVE) Ur Amphetamine Screen (NEGATIVE) U Methamphetamines Scrn (NEGATIVE) U Benzodiazepines Scrn (NEGATIVE) Urine Cocaine Screen (NEGATIVE) U Cannabinoids Screen (NEGATIVE) 05/25/19 05/25/19 05/24/19 Range/Units 01:02 01:02 21:01 WBC (4.8-10.8) x10^3/uL RBC (4.20-5.40) 10^6/uL Hgb (12.0-16.0) g/dL Hct (37.0-47.0) % MCV (81.0-99.0) fL MCH (27.0-31.0) pg MCHC (32.0-36.0) g/dL RDW (12.0-15.0) % Plt Count (130-450) 10^3/uL MPV (7.9-10.8) fL Neut # (Auto) Lymph # (Auto) [place] # (Auto) Eos # (Auto) Baso # (Auto) Absolute Nucleated RBC Total Counted Band Neuts % (Manual) (0 - 10) % Abnorm Lymph % (Manual) % Metamyelocytes % ( - 0) % Nucleated RBC % Neutrophils # (Manual) (1.5-6.6) 10^3/uL Lymphocytes # (Manual) (1.5-3.5) 10^3/uL Monocytes # (Manual) (0.0-1.0) 10^3/uL Eosinophils # (Manual) (0-0.7) 10^3/uL Basophils # (Manual) (0-0.1) 10^3/uL Differential Comment Manual Slide Review WBC Morphology (NORMAL) Platelet Estimate (NORMAL) Platelet Morphology (NORMAL) RBC Morph Micro Appear (NORMAL) PT (9.9-12.6) secs INR (0.8-1.2) APTT (24.9-33.3) secs Sodium 127 L (135-145) mmol/L Potassium 5.0 (3.5-5.0) mmol/L Chloride 96 L (101-111) mmol/L Carbon Dioxide 17 L (21-32) mmol/L Anion Gap 14.0 H (6-13) BUN 82 H* (6-20) mg/dL Creatinine 5.1 H (0.4-1.0) mg/dL Estimated GFR (MDRD) 9 L (>89) Glucose 172 H (70-100) mg/dL POC Whole Bld Glucose 162 H (70 - 100) mg/dL Glycated Hemoglobin (4.6-6.2) % Estim Average Glucose (70-100) Lactic Acid 2.6 H (0.5-2.2) mmol/L Calcium 8.1 L (8.5-10.3) mg/dL Phosphorus (2.5-4.6) mg/dL Magnesium (1.7-2.8) mg/dL Total Bilirubin (0.2-1.0) mg/dL Direct Bilirubin (0.1-0.5) mg/dL AST (10-42) IU/L ALT (10-60) IU/L Alkaline Phosphatase (42-121) IU/L Total Protein (6.7-8.2) g/dL Albumin (3.2-5.5) g/dL Globulin (2.1-4.2) g/dL Albumin/Globulin Ratio (1.0-2.2) Lipase (22-51) U/L Urine Color Urine Clarity (CLEAR) Urine pH (5.0-7.5) PH Ur Specific [place] (1.002-1.030) Urine Protein (NEGATIVE) mg/dL Urine Glucose (UA) (NEGATIVE) mg/dL Urine Ketones (NEGATIVE) mg/dL Urine Occult Blood (NEGATIVE) Urine Nitrite (NEGATIVE) Urine Bilirubin (NEGATIVE) Urine Urobilinogen (NORMAL) E.U./dL Ur Leukocyte Esterase (NEGATIVE) Urine RBC (0-5) /HPF Urine WBC (0-5) /HPF Ur Squamous Epith Cells (<= Few) Amorphous Sediment /LPF Urine Bacteria (None Seen) /HPF Ur Microscopic Review Urine Culture Comments Urine Opiates Screen (NEGATIVE) Ur Oxycodone Screen (NEGATIVE) Urine Methadone Screen (NEGATIVE) Ur Propoxyphene Screen (NEGATIVE) Ur Barbiturates Screen (NEGATIVE) Ur Tricyclics Screen (NEGATIVE) Ur Phencyclidine Scrn (NEGATIVE) Ur Amphetamine Screen (NEGATIVE) U Methamphetamines Scrn (NEGATIVE) U Benzodiazepines Scrn (NEGATIVE) Urine Cocaine Screen (NEGATIVE) U Cannabinoids Screen (NEGATIVE) 05/24/19 05/24/19 05/24/19 Range/Units 18:41 16:15 12:45 WBC (4.8-10.8) x10^3/uL RBC (4.20-5.40) 10^6/uL Hgb (12.0-16.0) g/dL Hct (37.0-47.0) % MCV (81.0-99.0) fL MCH (27.0-31.0) pg MCHC (32.0-36.0) g/dL RDW (12.0-15.0) % Plt Count (130-450) 10^3/uL MPV (7.9-10.8) fL Neut # (Auto) Lymph # (Auto) [place] # (Auto) Eos # (Auto) Baso # (Auto) Absolute Nucleated RBC Total Counted Band Neuts % (Manual) (0 - 10) % Abnorm Lymph % (Manual) % Metamyelocytes % ( - 0) % Nucleated RBC % Neutrophils # (Manual) (1.5-6.6) 10^3/uL Lymphocytes # (Manual) (1.5-3.5) 10^3/uL Monocytes # (Manual) (0.0-1.0) 10^3/uL Eosinophils # (Manual) (0-0.7) 10^3/uL Basophils # (Manual) (0-0.1) 10^3/uL Differential Comment Manual Slide Review WBC Morphology (NORMAL) Platelet Estimate (NORMAL) Platelet Morphology (NORMAL) RBC Morph Micro Appear (NORMAL) PT (9.9-12.6) secs INR (0.8-1.2) APTT (24.9-33.3) secs Sodium (135-145) mmol/L Potassium (3.5-5.0) mmol/L Chloride (101-111) mmol/L Carbon Dioxide (21-32) mmol/L Anion Gap (6-13) BUN (6-20) mg/dL Creatinine (0.4-1.0) mg/dL Estimated GFR (MDRD) (>89) Glucose (70-100) mg/dL POC Whole Bld Glucose (70 - 100) mg/dL Glycated Hemoglobin (4.6-6.2) % Estim Average Glucose (70-100) Lactic Acid 3.3 H* 4.8 H* (0.5-2.2) mmol/L Calcium (8.5-10.3) mg/dL Phosphorus (2.5-4.6) mg/dL Magnesium (1.7-2.8) mg/dL Total Bilirubin (0.2-1.0) mg/dL Direct Bilirubin (0.1-0.5) mg/dL AST (10-42) IU/L ALT (10-60) IU/L Alkaline Phosphatase (42-121) IU/L Total Protein (6.7-8.2) g/dL Albumin (3.2-5.5) g/dL Globulin (2.1-4.2) g/dL Albumin/Globulin Ratio (1.0-2.2) Lipase (22-51) U/L Urine Color ORANGE Urine Clarity CLOUDY (CLEAR) Urine pH 6.0 (5.0-7.5) PH Ur Specific [place] 1.020 (1.002-1.030) Urine Protein 100 H (NEGATIVE) mg/dL Urine Glucose (UA) NEGATIVE (NEGATIVE) mg/dL Urine Ketones NEGATIVE (NEGATIVE) mg/dL Urine Occult Blood LARGE H (NEGATIVE) Urine Nitrite NEGATIVE (NEGATIVE) Urine Bilirubin NEGATIVE (NEGATIVE) Urine Urobilinogen 1 (NORMAL) (NORMAL) E.U./dL Ur Leukocyte Esterase TRACE H (NEGATIVE) Urine RBC 6-10 H (0-5) /HPF Urine WBC >25 H (0-5) /HPF Ur Squamous Epith Cells FEW Squamous (<= Few) Amorphous Sediment Marked /LPF Urine Bacteria Many H (None Seen) /HPF Ur Microscopic Review INDICATED Urine Culture Comments INDICATED Urine Opiates Screen NEGATIVE (NEGATIVE) Ur Oxycodone Screen NEGATIVE (NEGATIVE) Urine Methadone Screen NEGATIVE (NEGATIVE) Ur Propoxyphene Screen NEGATIVE (NEGATIVE) Ur Barbiturates Screen NEGATIVE (NEGATIVE) Ur Tricyclics Screen NEGATIVE (NEGATIVE) Ur Phencyclidine Scrn NEGATIVE (NEGATIVE) Ur Amphetamine Screen NEGATIVE (NEGATIVE) U Methamphetamines Scrn NEGATIVE (NEGATIVE) U Benzodiazepines Scrn NEGATIVE (NEGATIVE) Urine Cocaine Screen NEGATIVE (NEGATIVE) U Cannabinoids Screen NEGATIVE (NEGATIVE) 05/24/19 05/24/19 05/24/19 Range/Units 11:58 11:58 11:58 WBC 16.0 H (4.8-10.8) x10^3/uL RBC 4.23 (4.20-5.40) 10^6/uL Hgb 14.3 (12.0-16.0) g/dL Hct 40.4 (37.0-47.0) % MCV 95.5 (81.0-99.0) fL MCH 33.8 H (27.0-31.0) pg MCHC 35.4 (32.0-36.0) g/dL RDW 13.4 (12.0-15.0) % Plt Count 142 (130-450) 10^3/uL MPV 11.4 H (7.9-10.8) fL Neut # (Auto) Not Reportable Lymph # (Auto) Not Reportable [place] # (Auto) Not Reportable Eos # (Auto) Not Reportable Baso # (Auto) Not Reportable Absolute Nucleated RBC Not Reportable Total Counted 100 Band Neuts % (Manual) 6 (0 - 10) % Abnorm Lymph % (Manual) 0 % Metamyelocytes % 2 H ( - 0) % Nucleated RBC % Not Reportable Neutrophils # (Manual) 13.0 H (1.5-6.6) 10^3/uL Lymphocytes # (Manual) 1.0 L (1.5-3.5) 10^3/uL Monocytes # (Manual) 1.3 H (0.0-1.0) 10^3/uL Eosinophils # (Manual) 0.5 (0-0.7) 10^3/uL Basophils # (Manual) 0.0 (0-0.1) 10^3/uL Differential Comment MANUAL DIFFERENTIAL Manual Slide Review Indicated WBC Morphology (NORMAL) Platelet Estimate NORMAL (130-450,000) (NORMAL) Platelet Morphology NORMAL APPEARANCE (NORMAL) RBC Morph Micro Appear NORMAL APPEARANCE (NORMAL) PT 19.0 H (9.9-12.6) secs INR 1.7 H (0.8-1.2) APTT 31.0 (24.9-33.3) secs Sodium 127 L (135-145) mmol/L Potassium 5.2 H (3.5-5.0) mmol/L Chloride 89 L (101-111) mmol/L Carbon Dioxide 17 L (21-32) mmol/L Anion Gap 21.0 H (6-13) BUN 79 H (6-20) mg/dL Creatinine 5.3 H (0.4-1.0) mg/dL Estimated GFR (MDRD) 8 L (>89) Glucose 230 H (70-100) mg/dL POC Whole Bld Glucose (70 - 100) mg/dL Glycated Hemoglobin (4.6-6.2) % Estim Average Glucose (70-100) Lactic Acid (0.5-2.2) mmol/L Calcium 9.2 (8.5-10.3) mg/dL Phosphorus (2.5-4.6) mg/dL Magnesium (1.7-2.8) mg/dL Total Bilirubin 2.7 H (0.2-1.0) mg/dL Direct Bilirubin (0.1-0.5) mg/dL AST 31 (10-42) IU/L ALT 24 (10-60) IU/L Alkaline Phosphatase 52 (42-121) IU/L Total Protein 8.4 H (6.7-8.2) g/dL Albumin 3.0 L (3.2-5.5) g/dL Globulin 5.4 H (2.1-4.2) g/dL Albumin/Globulin Ratio 0.6 L (1.0-2.2) Lipase 15 L (22-51) U/L Urine Color Urine Clarity (CLEAR) Urine pH (5.0-7.5) PH Ur Specific [place] (1.002-1.030) Urine Protein (NEGATIVE) mg/dL Urine Glucose (UA) (NEGATIVE) mg/dL Urine Ketones (NEGATIVE) mg/dL Urine Occult Blood (NEGATIVE) Urine Nitrite (NEGATIVE) Urine Bilirubin (NEGATIVE) Urine Urobilinogen (NORMAL) E.U./dL Ur Leukocyte Esterase (NEGATIVE) Urine RBC (0-5) /HPF Urine WBC (0-5) /HPF Ur Squamous Epith Cells (<= Few) Amorphous Sediment /LPF Urine Bacteria (None Seen) /HPF Ur Microscopic Review Urine Culture Comments Urine Opiates Screen (NEGATIVE) Ur Oxycodone Screen (NEGATIVE) Urine Methadone Screen (NEGATIVE) Ur Propoxyphene Screen (NEGATIVE) Ur Barbiturates Screen (NEGATIVE) Ur Tricyclics Screen (NEGATIVE) Ur Phencyclidine Scrn (NEGATIVE) Ur Amphetamine Screen (NEGATIVE) U Methamphetamines Scrn (NEGATIVE) U Benzodiazepines Scrn (NEGATIVE) Urine Cocaine Screen (NEGATIVE) U Cannabinoids Screen (NEGATIVE) ABX Reporting Has patient been on IV antibiotics over the past 48 hours?: Yes Sepsis Event Note (H) - Evaluation Current Stage of Sepsis: Sepsis Possible source of Sepsis: positive: Genitourinary - Sepsis Criteria Sepsis Criteria: Recorded Temperature greater than 38.3C or Less than 36C, Recorded Heart Rate greater than 90 bpm, WBC count greater than 10% bands, WBC count greater than 12,000 or less than 4000, Renal: urine output less than 0.5ml/kg/hr for 2 hours or creatinine gr, Metabolic: lactate > 2 mmol/L, Hepatic: Bilirubin greater than 2mg/dl Assessment/Plan - Problem List (1) Sepsis Impression: Conclusion/Plan: WBC 16k, neutrophils 13k on admit. Down to WBC 12.5 today. She has remained fe rile >38C overnight. End organ damaged evidenced by elevated Tbili of 2.7 (indirect 1.3) and BUN & Crea 38 and 5.3 respectively. No significant improvement in renal function today (only reflects ~12hr of IVF). She reports a low volume, brown urine output at home prior to admit for ~4 days. Sethi was placed yesterday and only about 250ml out in ~24hrs. She received 2L NS and 1gm ceftriaxone in the ED. Abx regimen broadened to cefepime overnight. Plan: -Continue I&Os with Sethi in place- once making adequate urine, will remove in setting of likely infection -Continue IVF NS at 150ml/hr -Empiric antibiotics with ceftriaxone IV x14 days (can switch to PO when patient's symptoms resolve and afebrile [id number])-->broadened to cefepime overnight. Given result of E.coli in blood cultures, will return Abx to ceftriaxone, but increase dose to 2gm daily. Qualifiers: Sepsis type: sepsis due to unspecified organism Qualified Code(s): A41.9 - Sepsis, unspecified organism (2) E.Coli bacteremia 4/4 blood cultures positive for gram negative bacilli, positive for E.Coli. Patient continues to be febrile, but no signs of clinical deterioration otherwise. Plan: -Will switch Abx back to Ceftriaxone, as this covers E.coli and is not renally cleared, increase dose to 2gm daily given bacteremia -Await sensitivities and if ESBL+, can switch to meropenem -Recommended duration of Abx therapy ranges from 7-14 days based on complications and clinical response to therapy. Given her suspected pyelo, and possible immunocompromised state in setting of heavy ETOH use, and DM consider Abx course of 10-14 days. (3) Pyelonephritis Conclusion/Plan: As above under sepsis, clinically improving. Continue IVF and Abx per above Plan: -Awaiting urine culture and sensitivities to narrow Abx coverage. (likely to also be E.coli) -Sethi catheter with dark yellow urine, minimal sediment. Producing ~35cc/hr -Continue IVF in setting of JEFFY (4)JEFFY Baseline crea unknown. Acute elevation likely multifactorial d/t sepsis, hypovolemia in setting of continuing to take ANA-i. Little change in Crea this AM though only after 12hr IVF. -HOLD lisinopril for now -Recheck Cr on AM labs (5) Volume depletion. Improved. Conclusion/Plan: In setting of minimal to no PO intake in >3 days. She also is hyponatremic and hyperkalemic. Appetite slowly improving. Plan: -IV hydration as mentioned above -Carb controlled diet, encourage PO fluids (6) Hyponatremia Conclusion/Plan: Na 127 on admission, improved to 129 today. Likely in setting of dehydration and hypovolemia. Consistent with patient history of nausea, vomiting and decreased PO intake. No neurological deficits or AMS at this time . Likely to resolve with IVF and with resuming oral diet. Plan: -IVF with NS -Trend daily CMP in the AM (7) Hyperkalemia Conclusion/Plan: K elevated at 5.3, down to 4.7 today. Probably in relation to her severe dehydration and JEFFY. EKG 05/24 showed NSR, borderline sinus tachy with HR 99. Plan: -Treat dehydration per above -Recheck CMP daily (8) Hypomagnesemia: Mag low 1.4 today. Plan: -Order IV repletion -Monitor on AM labs (9) Type 2 diabetes mellitus Conclusion/Plan: Controlled in outpatient setting on metformin. Does not use insulin at home. Sugars elevated in setting of infection. Plan: -HOLD metformin as this would worsen her lactic acidosis -Accu checks AC/HS with insulin aspart low dose sliding scale per protocol, low dose lantus at HS -Goal blood sugars <180 Qualifiers: Diabetes mellitus ferry terminal supervisor insulin use: without ferry terminal supervisor use Diabetes mellitus complication status: with hyperglycemia Qualified Code(s): E11.65 - Type 2 diabetes mellitus with hyperglycemia (10) Hypertension Conclusion/Plan: Blood pressures are running low 100s/70s. On lisinopril at home. Plan: -In setting of JEFFY and sepsis, will hold home lisinopril and resume when medically appropriate (11) Hyperlipidemia Conclusion/Plan: No recent lipids/triglycerides found in medical record. Last documented in 2014 shows elevated triglycerides and low HDL. Total [id number]=153 with LDL/HDL ratio 5.2. She is on simvastatin at home. Not currently having any concerning signs/symptoms of cardiac events. 10 year ASCVD score: 7.5% Plan: -Will hold simvastatin acutely until bili and renal function improves -Follow up in outpatient with PCP Qualifiers: Hyperlipidemia type: mixed hyperlipidemia Qualified Code(s): E78.2 - Mixed hyperlipidemia Qualifiers: Sepsis type: sepsis due to unspecified organism Qualified Code(s): A41.9 - Sepsis, unspecified organism (7) Type 2 diabetes mellitus Qualifiers: Diabetes mellitus nursing home insulin use: without ferry terminal supervisor use Diabetes mellitus complication status: with hyperglycemia Qualified Code(s): E11.65 - Type 2 diabetes mellitus with hyperglycemia (9) Hyperlipidemia Qualifiers: Hyperlipidemia type: mixed hyperlipidemia Qualified Code(s): E78.2 - Mixed hyperlipidemia (10) SEGUN on CPAP Impression: Home CPAP broke overnight, patient has new machine on order that should arrive today. Family plans to bring it in for her use tonight. She was placed on 2L O2 via NC overnight, sats stable. <Lila Gurrola E - Last Filed: 05/25/19 20:03> Subjective - Subjective Pt reports feeling: No change Objective - Vital Signs/Intake & Output Reviewed Vital Signs: Yes Vital Signs: Vital Signs x48h Temp Pulse Resp BP Pulse Ox 05/25/19 16:00 37.7 C H 98 18 149/93 H 97 05/25/19 13:00 37.1 C 93 16 120/73 99 Intake & Output: Intake & Output 05/22/19 05/23/19 05/24/19 05/25/19 23:59 23:59 23:59 23:59 Intake Total 4615.583 3498.75 Output Total 250 625 Balance 4365.583 2873.75 - Lab Results Fish Bones: 05/25/19 05:20 05/25/19 05:20 Other Labs: Lab Results x24hrs 05/25/19 05/25/19 05/25/19 Range/Units 16:39 11:45 07:56 WBC (4.8-10.8) x10^3/uL RBC (4.20-5.40) 10^6/uL Hgb (12.0-16.0) g/dL Hct (37.0-47.0) % MCV (81.0-99.0) fL MCH (27.0-31.0) pg MCHC (32.0-36.0) g/dL RDW (12.0-15.0) % Plt Count (130-450) 10^3/uL MPV (7.9-10.8) fL Neut # (Auto) Lymph # (Auto) [place] # (Auto) Eos # (Auto) Baso # (Auto) Absolute Nucleated RBC Total Counted Band Neuts % (Manual) (0 - 10) % Abnorm Lymph % (Manual) % Nucleated RBC % Neutrophils # (Manual) (1.5-6.6) 10^3/uL Lymphocytes # (Manual) (1.5-3.5) 10^3/uL Monocytes # (Manual) (0.0-1.0) 10^3/uL Eosinophils # (Manual) (0-0.7) 10^3/uL Basophils # (Manual) (0-0.1) 10^3/uL Differential Comment WBC Morphology (NORMAL) Platelet Estimate (NORMAL) Platelet Morphology (NORMAL) RBC Morph Micro Appear (NORMAL) Sodium (135-145) mmol/L Potassium (3.5-5.0) mmol/L Chloride (101-111) mmol/L Carbon Dioxide (21-32) mmol/L Anion Gap (6-13) BUN (6-20) mg/dL Creatinine (0.4-1.0) mg/dL Estimated GFR (MDRD) (>89) Glucose (70-100) mg/dL POC Whole Bld Glucose 142 H 157 H 144 H (70 - 100) mg/dL Glycated Hemoglobin (4.6-6.2) % Estim Average Glucose (70-100) Lactic Acid (0.5-2.2) mmol/L Calcium (8.5-10.3) mg/dL Phosphorus (2.5-4.6) mg/dL Magnesium (1.7-2.8) mg/dL Total Bilirubin (0.2-1.0) mg/dL Direct Bilirubin (0.1-0.5) mg/dL AST (10-42) IU/L ALT (10-60) IU/L Alkaline Phosphatase (42-121) IU/L Total Protein (6.7-8.2) g/dL Albumin (3.2-5.5) g/dL Globulin (2.1-4.2) g/dL Albumin/Globulin Ratio (1.0-2.2) 05/25/19 05/25/19 05/25/19 Range/Units 05:20 05:20 05:20 WBC (4.8-10.8) x10^3/uL RBC (4.20-5.40) 10^6/uL Hgb (12.0-16.0) g/dL Hct (37.0-47.0) % MCV (81.0-99.0) fL MCH (27.0-31.0) pg MCHC (32.0-36.0) g/dL RDW (12.0-15.0) % Plt Count (130-450) 10^3/uL MPV (7.9-10.8) fL Neut # (Auto) Lymph # (Auto) [place] # (Auto) Eos # (Auto) Baso # (Auto) Absolute Nucleated RBC Total Counted Band Neuts % (Manual) (0 - 10) % Abnorm Lymph % (Manual) % Nucleated RBC % Neutrophils # (Manual) (1.5-6.6) 10^3/uL Lymphocytes # (Manual) (1.5-3.5) 10^3/uL Monocytes # (Manual) (0.0-1.0) 10^3/uL Eosinophils # (Manual) (0-0.7) 10^3/uL Basophils # (Manual) (0-0.1) 10^3/uL Differential Comment WBC Morphology (NORMAL) Platelet Estimate (NORMAL) Platelet Morphology (NORMAL) RBC Morph Micro Appear (NORMAL) Sodium 129 L (135-145) mmol/L Potassium 4.7 (3.5-5.0) mmol/L Chloride 96 L (101-111) mmol/L Carbon Dioxide 17 L (21-32) mmol/L Anion Gap 16.0 H (6-13) BUN 83 H* (6-20) mg/dL Creatinine 5.0 H (0.4-1.0) mg/dL Estimated GFR (MDRD) 9 L (>89) Glucose 156 H (70-100) mg/dL POC Whole Bld Glucose (70 - 100) mg/dL Glycated Hemoglobin 8.0 H (4.6-6.2) % Estim Average Glucose 183 H (70-100) Lactic Acid 2.3 H (0.5-2.2) mmol/L Calcium 8.2 L (8.5-10.3) mg/dL Phosphorus 3.0 (2.5-4.6) mg/dL Magnesium 1.4 L (1.7-2.8) mg/dL Total Bilirubin 2.6 H (0.2-1.0) mg/dL Direct Bilirubin (0.1-0.5) mg/dL AST 32 (10-42) IU/L ALT 22 (10-60) IU/L Alkaline Phosphatase 56 (42-121) IU/L Total Protein 7.1 (6.7-8.2) g/dL Albumin 2.6 L (3.2-5.5) g/dL Globulin 4.5 H (2.1-4.2) g/dL Albumin/Globulin Ratio 0.6 L (1.0-2.2) 05/25/19 05/25/19 05/25/19 Range/Units 05:20 01:02 01:02 WBC 12.5 H (4.8-10.8) x10^3/uL RBC 4.13 L (4.20-5.40) 10^6/uL Hgb 13.8 (12.0-16.0) g/dL Hct 39.6 (37.0-47.0) % MCV 95.9 (81.0-99.0) fL MCH 33.4 H (27.0-31.0) pg MCHC 34.8 (32.0-36.0) g/dL RDW 14.0 (12.0-15.0) % Plt Count 86 L (130-450) 10^3/uL MPV 12.1 H (7.9-10.8) fL Neut # (Auto) Not Reportable Lymph # (Auto) Not Reportable [place] # (Auto) Not Reportable Eos # (Auto) Not Reportable Baso # (Auto) Not Reportable Absolute Nucleated RBC Not Reportable Total Counted 100 Band Neuts % (Manual) 4 (0 - 10) % Abnorm Lymph % (Manual) 0 % Nucleated RBC % Not Reportable Neutrophils # (Manual) 11.0 H (1.5-6.6) 10^3/uL Lymphocytes # (Manual) 0.5 L (1.5-3.5) 10^3/uL Monocytes # (Manual) 1.0 (0.0-1.0) 10^3/uL Eosinophils # (Manual) 0.0 (0-0.7) 10^3/uL Basophils # (Manual) 0.0 (0-0.1) 10^3/uL Differential Comment MANUAL DIFFERENTIAL WBC Morphology NORMAL APPEARANCE (NORMAL) Platelet Estimate DECREASED (<130,000) (NORMAL) Platelet Morphology NORMAL APPEARANCE (NORMAL) RBC Morph Micro Appear NORMAL APPEARANCE (NORMAL) Sodium (135-145) mmol/L Potassium (3.5-5.0) mmol/L Chloride (101-111) mmol/L Carbon Dioxide (21-32) mmol/L Anion Gap (6-13) BUN (6-20) mg/dL Creatinine (0.4-1.0) mg/dL Estimated GFR (MDRD) (>89) Glucose (70-100) mg/dL POC Whole Bld Glucose (70 - 100) mg/dL Glycated Hemoglobin (4.6-6.2) % Estim Average Glucose (70-100) Lactic Acid 2.6 H (0.5-2.2) mmol/L Calcium (8.5-10.3) mg/dL Phosphorus (2.5-4.6) mg/dL Magnesium (1.7-2.8) mg/dL Total Bilirubin (0.2-1.0) mg/dL Direct Bilirubin 1.3 H (0.1-0.5) mg/dL AST (10-42) IU/L ALT (10-60) IU/L Alkaline Phosphatase (42-121) IU/L Total Protein (6.7-8.2) g/dL Albumin (3.2-5.5) g/dL Globulin (2.1-4.2) g/dL Albumin/Globulin Ratio (1.0-2.2) 05/25/19 05/24/19 05/24/19 Range/Units 01:02 21:01 18:41 WBC (4.8-10.8) x10^3/uL RBC (4.20-5.40) 10^6/uL Hgb (12.0-16.0) g/dL Hct (37.0-47.0) % MCV (81.0-99.0) fL MCH (27.0-31.0) pg MCHC (32.0-36.0) g/dL RDW (12.0-15.0) % Plt Count (130-450) 10^3/uL MPV (7.9-10.8) fL Neut # (Auto) Lymph # (Auto) [place] # (Auto) Eos # (Auto) Baso # (Auto) Absolute Nucleated RBC Total Counted Band Neuts % (Manual) (0 - 10) % Abnorm Lymph % (Manual) % Nucleated RBC % Neutrophils # (Manual) (1.5-6.6) 10^3/uL Lymphocytes # (Manual) (1.5-3.5) 10^3/uL Monocytes # (Manual) (0.0-1.0) 10^3/uL Eosinophils # (Manual) (0-0.7) 10^3/uL Basophils # (Manual) (0-0.1) 10^3/uL Differential Comment WBC Morphology (NORMAL) Platelet Estimate (NORMAL) Platelet Morphology (NORMAL) RBC Morph Micro Appear (NORMAL) Sodium 127 L (135-145) mmol/L Potassium 5.0 (3.5-5.0) mmol/L Chloride 96 L (101-111) mmol/L Carbon Dioxide 17 L (21-32) mmol/L Anion Gap 14.0 H (6-13) BUN 82 H* (6-20) mg/dL Creatinine 5.1 H (0.4-1.0) mg/dL Estimated GFR (MDRD) 9 L (>89) Glucose 172 H (70-100) mg/dL POC Whole Bld Glucose 162 H (70 - 100) mg/dL Glycated Hemoglobin (4.6-6.2) % Estim Average Glucose (70-100) Lactic Acid 3.3 H* (0.5-2.2) mmol/L Calcium 8.1 L (8.5-10.3) mg/dL Phosphorus (2.5-4.6) mg/dL Magnesium (1.7-2.8) mg/dL Total Bilirubin (0.2-1.0) mg/dL Direct Bilirubin (0.1-0.5) mg/dL AST (10-42) IU/L ALT (10-60) IU/L Alkaline Phosphatase (42-121) IU/L Total Protein (6.7-8.2) g/dL Albumin (3.2-5.5) g/dL Globulin (2.1-4.2) g/dL Albumin/Globulin Ratio (1.0-2.2) Assessment/Plan - Problem List (1) Acute renal failure Qualifiers: Acute renal failure type: unspecified Qualified Code(s): N17.9 - Acute kidney failure, unspecified (2) Pyelonephritis Impression: Unable to enter student note to Edit directly in note Patient seen and examined this morning, and afternoon Agree with exam, and 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 Exam; Continues with low grade temp, no hypotension/tachycardia/tachypnea nontoxic appearing, awake , alert Chest CTA, Heart Reg S1S2, no tachycardia, abdomen protuberant, obese, no suprapubic tenderness , no CVA tenderness, no LE edema Patient ambulating in halls late in day A/P as per Student note Briefly; bilateral Ecoli pyelonephritis, with Gram neg 4/4 bacteremia (suspect urine culture will be same) and Acute Kidney injury Clinically improving with improving leukocytosis, Creat with nominal change this am, but only reflected ~12 hrs IVF , UOP improving over course of day As noted, continuing IVF, antibiotics deescalated from cefepime to ceftriaxone as noted, will f/u sensitivities r/u on Cr in am, continuing to hold ACEI, and metformin
[2019-05-25] MEDS ORDERED: cefTRIAXone 2 GM in SODIUM CHLORIDE 0.9% MINIBAG 100 ML IV SCH (09:00)
[2019-05-25] MEDS: INSULIN ASPART 300 UNIT/3 ML PEN SUBQ SCH ×4 (09:06→21:11)
[2019-05-25] MEDS: POLYETHYLENE GLYCOL 3350 17 GM PACKET PO SCH ×2 (09:09→10:12)
[2019-05-25] MEDS ORDERED: MAGNESIUM SULFATE 2 GM in SODIUM CHLORIDE 0.9% 50 ML IV ONE (11:57)
[2019-05-25] MEDS: SENNA 8.6 MG TABLET PO SCH (12:36)
[2019-05-25] MEDS ORDERED: MAGNESIUM SULFATE 2 GRAM 2 GM/50 ML BAG IV ONE (13:00)
[2019-05-25] MEDS ORDERED: SACCHAROMYCES BOULARDII 250 MG CAPSULE PO SCH (17:00)
[2019-05-25] MEDS: INSULIN GLARGINE 300 UNIT/3 ML PEN SUBQ SCH (21:11)
[2019-05-25] MEDS: cefTRIAXone 2 GM in SODIUM CHLORIDE 0.9% MINIBAG 100 ML IV SCH (21:59)
[2019-05-25] MEDS ORDERED: cefTRIAXone 1 GM in SODIUM CHLORIDE 0.9% MINIBAG 100 ML IV SCH (22:00)
[2019-05-26] MEDS ORDERED: CALCIUM CARBONATE CHEW 500 MG TABLET PO PRN (00:20)
[2019-05-26] MEDS: SODIUM CHLORIDE 0.9% 1,000 ML IV SCH ×3 (02:39→17:06)
[2019-05-26 05:20] LABS: BASOPHILS % (AUTO) 0.4 %; EOSINOPHILS % (AUTO) 0.1 %; LYMPHOCYTES % (AUTO) 2.5 %; MEAN CORPUSCULAR HEMOGLOBIN 32.6 pg (27.0-31.0); MEAN CORPUSCULAR HGB CONC 34.5 g/dL (32.0-36.0); MEAN CORPUSCULAR VOLUME 94.6 fL (81.0-99.0); MEAN PLATELET VOLUME 12.4 fL (7.9-10.8); MONOCYTES % (AUTO) 6.2 %; NEUTROPHILS % (AUTO) 89.5 %; PLT - PLATELET COUNT 68 10^3/uL (130-450); RED BLOOD COUNT 3.68 10^6/uL (4.20-5.40); RED CELL DISTRIBUTION WIDTH 14.6 % (12.0-15.0); WHITE BLOOD COUNT 15.9 x10^3/uL (4.8-10.8)
[2019-05-26 05:25] LABS: ABNORMAL LYMPHS % (MANUAL) 0 %
[2019-05-26 05:36] LABS: CALCIUM 8.1 mg/dL (8.5-10.3); CREATININE 4.4 mg/dL (0.4-1.0)
[2019-05-26 05:57] LABS: BAND NEUTROPHILS % (MANUAL) 4 %; LYMPHOCYTES # (MANUAL) 0.8 10^3/uL (1.5-3.5); LYMPHOCYTES % (MANUAL) 5 %; MONOCYTES # (MANUAL) 0.5 10^3/uL (0.0-1.0)
[2019-05-26 05:58] LABS: RBC MORPHOLOGY (MULTIPLE) NORMAL APPEARANCE (NORMAL)
[2019-05-26 05:59] LABS: DIFFERENTIAL COMMENT MANUAL DIFFERENTIAL; PLATELET ESTIMATE, MANUAL DECREASED (<130,000) (NORMAL); PLATELET MORPHOLOGY NORMAL APPEARANCE (NORMAL)
--- NOTE | 2019-05-26 06:43 | PROVIDER PROGRESS NOTE ---
Subjective - Prog Note Date Prog Note Date: 05/26/19 Prog Note Time: 06:42 - Subjective Pt reports feeling: Improved (still feels very tired, sluggish, no shortness of breath, , no chills, no edema, taking PO, no flank pain, no dysuria w/ cerrato out) Subjective: Addendum; called by RN Cat ~ 5pm that patient HR 120's to 130s w/ sensation of SOB, felt "stressed" patient needing to go to commode at that time; for scant loose BM, no acute distress, No c/o chest pain, jaw, arm pain, diaphoresis, nausea. HR ~ 128 w/ occas extra systole EKG ; atrial [id number] slight ST depression 3, F w/ TWI normal axis,RWP ok troponin; normal 0.05, high sens trop 26 Rate improved w/ metoprolol 5 x 1, but , still in 1 teens BP allowed for 2nd dose and will start metoprolol 25 po bid d/w'd patient and possible PAF given prior reports of "stress like feeling", eval for ischemia, Ddx includes PE,; asymptomatc, HD stable, no R axis on EKG, RA Sa02 upper 90's even with tachycardia, , DDimer will be spuruious w/ GFR , LE exam not suggestive of DVT low suspician, (Wells score 1.5 low risk; 1.3 %will check , Check echo for WMA, LA size, ? valve disorder TSH in am Current Medications - Current Medications Current Medications: Active Medications Acetaminophen (Tylenol) 650 mg PO Q4HR PRN PRN Reason: Pain or Fever > 38C (100.4F) Calcium Carbonate/Glycine (Tums) 500 mg PO BID PRN PRN Reason: Heartburn Sodium Chloride (Normal Saline 0.9%) 1,000 mls @ 150 mls/hr IV .Q6H40M BOB Last Admin: 05/26/19 02:39 Dose: 150 mls/hr Ceftriaxone Sodium 2 gm/ (Sodium Chloride) 100 mls @ 200 mls/hr IV 2200 BOB Last Infusion: 05/25/19 22:29 Dose: Infused Insulin Aspart (Novolog) 1 - 5 unit SUBQ 0800,1200,1700,2100 BOB; Protocol Last Admin: 05/25/19 21:11 Dose: 1 unit Insulin Glargine (Lantus Solostar) 5 unit SUBQ QPM [facility] Last Admin: 05/25/19 21:11 Dose: 5 unit Polyethylene Glycol (Miralax) 17 gm PO DAILY [facility] Last Admin: 05/25/19 10:12 Dose: 17 gm Saccharomyces Boulardii (Florastor) 250 mg PO BIDWM [facility] Senna (Senokot) 8.6 - 17.2 mg PO DAILY [facility] Last Admin: 05/25/19 12:36 Dose: 17.2 mg Sodium Chloride (Normal Saline Flush 0.9%) 10 ml IVP PRN PRN PRN Reason: NEEDED PER PROVIDER ORDERS Last Admin: 05/25/19 09:11 Dose: 10 ml Sodium Chloride (Normal Saline Flush 0.9%) 10 ml IVP 0100,0900,1700 [facility] Last Admin: 05/25/19 23:47 Dose: Not Given Metformin HCl 500 mg PO BIDWM 12/21/13 Simvastatin 20 mg PO QPM 05/23/19 Lisinopril 20 mg PO BID 05/24/19 Objective - Vital Signs/Intake & Output Reviewed Vital Signs: Yes Vital Signs: Vital Signs x48h Temp Pulse Resp BP Pulse Ox 05/26/19 00:00 37.4 C 98 18 164/88 H 98 Intake & Output: Intake & Output 05/23/19 05/24/19 05/25/19 05/26/19 23:59 23:59 23:59 23:59 Intake Total 4615.583 4948.75 625 Output Total 250 1125 575 Balance 4365.583 3823.75 50 - Objective General Appearance: positive: No acute distress, Alert, Other (sitting up at bedside, animated, answers questions appropriately, NAD, no diaphoresis, no mottling, family present, able to name days of week in reverse, lable items) Eyes Bilateral: positive: Normal inspection, PERRL, EOMI Respiratory: positive: Chest non-tender, No respiratory distress, Breath sounds nml Cardiovascular: positive: Regular rate & rhythm, No murmur, Systolic murmur (? 1-2 / 6 SM LSB) Abdomen: positive: Nml bowel sounds, No distention (obese but non distended, non taut (per patient , cabezas than usual; no fluid wave), striations), Other (no CVA tenderness). negative: Tenderness Back: negative: CVA tenderness (R), CVA tenderness (L) Skin: positive: Warm, Dry. negative: Diaphoresis Neurologic/Psychiatric: positive: Oriented x3, Motor nml, Mood/affect nml, Other (as above, able to articulate,name items, state weekdays in reverse w/o difficulty despite c/o feels sluggish in thought) - Lab Results Fish Bones: 05/27/19 06:10 05/27/19 06:10 Other Labs: Lab Results x24hrs 05/26/19 05/26/19 05/25/19 Range/Units 05:01 05:01 20:59 WBC 15.9 H (4.8-10.8) x10^3/uL RBC 3.68 L (4.20-5.40) 10^6/uL Hgb 12.0 (12.0-16.0) g/dL Hct 34.8 L (37.0-47.0) % MCV 94.6 (81.0-99.0) fL MCH 32.6 H (27.0-31.0) pg MCHC 34.5 (32.0-36.0) g/dL RDW 14.6 (12.0-15.0) % Plt Count 68 L (130-450) 10^3/uL MPV 12.4 H (7.9-10.8) fL Neut # (Auto) Not Reportable Lymph # (Auto) Not Reportable [place] # (Auto) Not Reportable Eos # (Auto) Not Reportable Baso # (Auto) Not Reportable Absolute Nucleated RBC Not Reportable Total Counted 100 Band Neuts % (Manual) 4 (0 - 10) % Abnorm Lymph % (Manual) 0 % Nucleated RBC % Not Reportable Neutrophils # (Manual) 14.6 H (1.5-6.6) 10^3/uL Lymphocytes # (Manual) 0.8 L (1.5-3.5) 10^3/uL Monocytes # (Manual) 0.5 (0.0-1.0) 10^3/uL Eosinophils # (Manual) 0.0 (0-0.7) 10^3/uL Basophils # (Manual) 0.0 (0-0.1) 10^3/uL Differential Comment MANUAL DIFFERENTIAL WBC Morphology NORMAL APPEARANCE (NORMAL) Platelet Estimate DECREASED (<130,000) (NORMAL) Platelet Morphology NORMAL APPEARANCE (NORMAL) RBC Morph Micro Appear NORMAL APPEARANCE (NORMAL) Sodium 131 L (135-145) mmol/L Potassium 4.4 (3.5-5.0) mmol/L Chloride 99 L (101-111) mmol/L Carbon Dioxide 18 L (21-32) mmol/L Anion Gap 14.0 H (6-13) BUN 94 H* (6-20) mg/dL Creatinine 4.4 H (0.4-1.0) mg/dL Estimated GFR (MDRD) 10 L (>89) Glucose 136 H (70-100) mg/dL POC Whole Bld Glucose 177 H (70 - 100) mg/dL Calcium 8.1 L (8.5-10.3) mg/dL Direct Bilirubin (0.1-0.5) mg/dL 05/25/19 05/25/19 05/25/19 Range/Units 16:39 11:45 07:56 WBC (4.8-10.8) x10^3/uL RBC (4.20-5.40) 10^6/uL Hgb (12.0-16.0) g/dL Hct (37.0-47.0) % MCV (81.0-99.0) fL MCH (27.0-31.0) pg MCHC (32.0-36.0) g/dL RDW (12.0-15.0) % Plt Count (130-450) 10^3/uL MPV (7.9-10.8) fL Neut # (Auto) Lymph # (Auto) [place] # (Auto) Eos # (Auto) Baso # (Auto) Absolute Nucleated RBC Total Counted Band Neuts % (Manual) (0 - 10) % Abnorm Lymph % (Manual) % Nucleated RBC % Neutrophils # (Manual) (1.5-6.6) 10^3/uL Lymphocytes # (Manual) (1.5-3.5) 10^3/uL Monocytes # (Manual) (0.0-1.0) 10^3/uL Eosinophils # (Manual) (0-0.7) 10^3/uL Basophils # (Manual) (0-0.1) 10^3/uL Differential Comment WBC Morphology (NORMAL) Platelet Estimate (NORMAL) Platelet Morphology (NORMAL) RBC Morph Micro Appear (NORMAL) Sodium (135-145) mmol/L Potassium (3.5-5.0) mmol/L Chloride (101-111) mmol/L Carbon Dioxide (21-32) mmol/L Anion Gap (6-13) BUN (6-20) mg/dL Creatinine (0.4-1.0) mg/dL Estimated GFR (MDRD) (>89) Glucose (70-100) mg/dL POC Whole Bld Glucose 142 H 157 H 144 H (70 - 100) mg/dL Calcium (8.5-10.3) mg/dL Direct Bilirubin (0.1-0.5) mg/dL 05/25/19 Range/Units 01:02 WBC (4.8-10.8) x10^3/uL RBC (4.20-5.40) 10^6/uL Hgb (12.0-16.0) g/dL Hct (37.0-47.0) % MCV (81.0-99.0) fL MCH (27.0-31.0) pg MCHC (32.0-36.0) g/dL RDW (12.0-15.0) % Plt Count (130-450) 10^3/uL MPV (7.9-10.8) fL Neut # (Auto) Lymph # (Auto) [place] # (Auto) Eos # (Auto) Baso # (Auto) Absolute Nucleated RBC Total Counted Band Neuts % (Manual) (0 - 10) % Abnorm Lymph % (Manual) % Nucleated RBC % Neutrophils # (Manual) (1.5-6.6) 10^3/uL Lymphocytes # (Manual) (1.5-3.5) 10^3/uL Monocytes # (Manual) (0.0-1.0) 10^3/uL Eosinophils # (Manual) (0-0.7) 10^3/uL Basophils # (Manual) (0-0.1) 10^3/uL Differential Comment WBC Morphology (NORMAL) Platelet Estimate (NORMAL) Platelet Morphology (NORMAL) RBC Morph Micro Appear (NORMAL) Sodium (135-145) mmol/L Potassium (3.5-5.0) mmol/L Chloride (101-111) mmol/L Carbon Dioxide (21-32) mmol/L Anion Gap (6-13) BUN (6-20) mg/dL Creatinine (0.4-1.0) mg/dL Estimated GFR (MDRD) (>89) Glucose (70-100) mg/dL POC Whole Bld Glucose (70 - 100) mg/dL Calcium (8.5-10.3) mg/dL Direct Bilirubin 1.3 H (0.1-0.5) mg/dL Sepsis Event Note (H) - Evaluation Current Stage of Sepsis: Sepsis Possible source of Sepsis: positive: Genitourinary - Sepsis Criteria Sepsis Criteria: Recorded Temperature greater than 38.3C or Less than 36C, Recorded Heart Rate greater than 90 bpm, WBC count greater than 10% bands, WBC count greater than 12,000 or less than 4000, Renal: urine output less than 0.5ml/kg/hr for 2 hours or creatinine gr, Metabolic: lactate > 2 mmol/L, Hepatic: Bilirubin greater than 2mg/dl Assessment/Plan - Problem List (1) Pyelonephritis Impression: (1)Ecoli Pyelonephritis Conclusion/Plan: Ecoli pyleonephritis with ecoli bacteremia Continues to clinically improve, Cr 5.0>>4.4, Defervescing, now afebrile although leukocytosis slightly increased from yesterday Is on sensitive ABX > Continue ceftriaxone IF still has elevated WBC tomorrow may consider imaging for ? perinephric abscess but as noted otherwise clinically improving Cerrato removed today Recheck CBC in am Total treatment 10-14 days SCD's for VTE proph/ CRCl 10, unble to use lovenox (2) E.Coli bacteremia 4/4 blood cultures positive for Ecoli, consistent with urine culture as expected Sepsis resolved as above Continue ceftriaxone, As above, will consider imaging if concern for abscess, but clinically improving, defervesced, hemodynamcally stable Recheck WBC in am , (3) Sepsis; Resolved (4)JEFFY Slowly improving Creatinine (BUN remains elevated) Baseline creatinine unknown. Acute elevation likely multifactorial d/t sepsis, hypovolemia in setting of continuing to take ANA-i. Little change in Crea this AM though only after 12hr IVF. -HOLD lisinopril for now -Recheck Cr on AM labs Will try to get outpatient labs for baseline 5) new afib (see details under S) rate improved w/ meto 5 IV x 2, starting low dose BB EKG with possibe ischemic changes, (TW inversions III, F, Sl ST depresion), initial troponin neg,(and high sensitivity trop 29,) Echo tomorrow, check LA size, ? WMA, TSH pending As above have low suspician for PE / VTE, asymptomatic, hemodynamically stable , Sats upper 90's RA , no LE pain, swelling, WEllls score low risk 1.5DDimer would be spuruious w/ CrCl Platelets reduced, but highly massive thrombus given exam (See below); holding heparin (6) Thombocytopeina 142 on admission >>86 05/25, 68K today Initially considered related to sepsis/ GNR bacteremia on admission, but continue to decline, no sign of bleeding (however BUN NOT improving concomittant w/ Cr) Not on heparin, (heparin induced, HIT NOT in DDX), highlydoubt massive thrombosis , heavy etoh use with ? cirrhosis on initialCT (nodular liver), conceivably she had reactive thrmbocytosis on presentation, and is now refleting her baseline with alcohol use, Only new Rx is ceftriaxone Rechek in am; monitor closely (7) Hyponatremia Conclusion/Plan: Na 127 on admission,>>129>>131> 130 Likely hypovolemic hyponatremia intially depending on UOP, hope to reduce IVF rate today recheck in am Volume depletion. Improved. Conclusion/Plan: In setting of minimal to no PO intake in >3 days. was hyponatremic , will reduce IVF rate #SEGUN CPAP ; on home CPAP - (9) Type 2 diabetes mellitus Conclusion/Plan: Metformin at home, on hold here w/ JEFFY Glucoses reasonable with HS lantus 5unis, as renal fxn metformin. Does not use insulin at home. Plan: -Metformin on hold -Accu checks AC/HS with insulin aspart low dose sliding scale per protocol, low dose lantus at HS -Goal blood sugars <180 (10) Hypertension Conclusion/Plan: Lisinopril on hold given JEFFY Should be able to reduce IVF rate soon whcih may be affecting pressue continue home CPAP #Hyperlipidemia Conclusion/Plan: On simvastatin at home. # Hyperkalemia Conclusion/Plan: related to JEFFY reesolved #Hypomagnesemia: IV repletion 05/24
[2019-05-26] MEDS: INSULIN ASPART 300 UNIT/3 ML PEN SUBQ SCH ×4 (09:06→21:15)
[2019-05-26] MEDS: POLYETHYLENE GLYCOL 3350 17 GM PACKET PO SCH (09:13)
[2019-05-26] MEDS: SENNA 8.6 MG TABLET PO SCH (09:13)
[2019-05-26] MEDS: SODIUM CHLORIDE FLUSH 0.9% 10 ML SYRINGE IVP SCH ×2 (09:15→17:06)
[2019-05-26] MEDS ORDERED: METOPROLOL 5 MG/5 ML VIAL IVP ONE ×2 (17:29→18:38)
[2019-05-26 17:53] LABS: TROPONIN I 0.05 ng/mL (<0.49)
[2019-05-26] MEDS: SODIUM CHLORIDE FLUSH 0.9% 10 ML SYRINGE IVP PRN (17:54)
[2019-05-26] MEDS ORDERED: METOPROLOL TARTRATE 25 MG TABLET PO SCH (21:00)
[2019-05-26] MEDS: INSULIN GLARGINE 300 UNIT/3 ML PEN SUBQ SCH (21:14)
[2019-05-26] MEDS: cefTRIAXone 2 GM in SODIUM CHLORIDE 0.9% MINIBAG 100 ML IV SCH (22:21)
[2019-05-27] MEDS: SODIUM CHLORIDE 0.9% 1,000 ML IV SCH ×2 (03:35→21:05)
[2019-05-27 06:18] LABS: HGB - HEMOGLOBIN 12.7 g/dL (12.0-16.0); MEAN CORPUSCULAR HEMOGLOBIN 33.7 pg (27.0-31.0); MEAN CORPUSCULAR HGB CONC 35.4 g/dL (32.0-36.0); MEAN CORPUSCULAR VOLUME 95.2 fL (81.0-99.0); MEAN PLATELET VOLUME 12.3 fL (7.9-10.8); RED BLOOD COUNT 3.77 10^6/uL (4.20-5.40)
[2019-05-27 06:24] LABS: CALCIUM 8.1 mg/dL (8.5-10.3)
--- NOTE | 2019-05-27 09:08 | CT Report ---
Reason: eval 4 perinephric abscess Procedure Date: 05/27/2019 Accession Number: [id number] / [id number] Procedure: CT - Abdomen/Pelvis WO CPT Code: FULL RESULT: EXAM: CT ABDOMEN AND PELVIS (CT KUB) EXAM DATE: 05/27/2019 08:14 AM. CLINICAL HISTORY: Eval 4 perinephric abscess. COMPARISONS: ABDOMEN/PELVIS W/O 05/24/2019 12:46 PM ABDOMEN/PELVIS W/ 03/04/2015 12:08 PM. TECHNIQUE: Routine axial helical CT imaging was performed through the abdomen and pelvis without IV contrast. Reconstructions: Coronal and sagittal. In accordance with CT protocol optimization, one or more of the following dose reduction techniques were utilized for this exam: automated exposure control, adjustment of mA and/or KV based on patient size, or use of iterative reconstructive technique. FINDINGS: Lung Bases: Trace bilateral pleural effusions. Right Kidney/Ureter: Diffuse right renal fullness with perinephric edema. No hydronephrosis or renal stone. Left Kidney/Ureter: Mild diffuse left renal fullness and trace perinephric soft tissue stranding. Other Solid Organs: Cirrhotic liver morphology with nodular contour. Enlarged caudate lobe. No obvious mass on noncontrast imaging. Gallbladder/Bile Ducts: Unremarkable. Peritoneal Cavity: Diverticulosis. Small amount of ascites, mostly within right upper quadrant. No dilated bowel. Pelvic Organs: Small mount of air within urinary bladder lumen, question if due to recent catheterization. Uterus is grossly unremarkable. Vasculature: Unremarkable. Other: Mild anasarca. IMPRESSION: 1. Right greater than left diffuse renal fullness and perinephric edema concerning for pyelonephritis. No obvious abscess on noncontrast imaging. Recommend clinical correlation. 2. Cirrhotic liver. 3. Small amount of ascites has developed since 05/24/2019. 4. Diverticulosis. RADIA
[2019-05-27] MEDS: SENNA 8.6 MG TABLET PO SCH (09:23)
[2019-05-27] MEDS: METOPROLOL TARTRATE 50 MG TABLET PO SCH ×2 (09:23→22:11)
[2019-05-27] MEDS: SODIUM CHLORIDE FLUSH 0.9% 10 ML SYRINGE IVP SCH ×3 (09:25→16:44)
[2019-05-27] MEDS: INSULIN ASPART 300 UNIT/3 ML PEN SUBQ SCH ×4 (09:26→22:14)
[2019-05-27] MEDS: POLYETHYLENE GLYCOL 3350 17 GM PACKET PO SCH (09:27)
[2019-05-27 10:49] LABS: BILIRUBIN,DIRECT 2.3 mg/dL (0.1-0.5); BILIRUBIN,TOTAL 3.3 mg/dL (0.2-1.0); TOTAL PROTEIN 6.1 g/dL (6.7-8.2)
[2019-05-27 11:00] LABS: TROPONIN I 0.04 ng/mL (<0.49)
--- NOTE | 2019-05-27 11:18 | PROVIDER PROGRESS NOTE ---
Subjective - Prog Note Date Prog Note Date: 05/27/19 Prog Note Time: 11:05 - Subjective Pt reports feeling: Improved (feels better b/c CPAP machine finally available for sleep last night no specific complaints, no fever, chills, palpitations, chestpain, shortness of breath no CVA pain, abdfeels a "bit " full, but otherwise no different later in day reported 3 loose BMs) Subjective: CT Abdomen / Pelvis; non contrast (due to Cr/GFR) Right kidney; Diffuse R renalfullness w/ perinephric edema, No hydronephris or renal stone Left Kidney; Mild diffuse L renal fullness and trace perinephric soft tissue stranding Cirrhotic liver mophrology with nodular contour/ Enlarged caudate lobe Small amount ascites mostly RUQ developed since 05/24 imaging, Mild anasarca Small amount air in urinary bladder lumen (? due to recent cath Diverticulosis Objective - Vital Signs/Intake & Output Reviewed Vital Signs: Yes Vital Signs: Reviewed numerous times on 05/27 thruout dayVital Signs x48h Temp Pulse Pulse Resp BP BP Pulse Ox 05/27/19 09:23 128/88 H 05/27/19 08:08 37 C 101 H 16 128/88 H 94 05/27/19 03:51 36.7 C 105 H 20 142/96 H 97 Intake & Output: Intake & Output 05/24/19 05/25/19 05/26/19 05/27/19 23:59 23:59 23:59 23:59 Intake Total 4615.583 4948.75 4077.5 1036.666 Output Total 250 1125 1475 700 Balance 4365.583 3823.75 2602.5 336.666 - Objective General Appearance: positive: No acute distress, Alert (lying in bed, awake, alert, nontoxic, animated) Eyes Bilateral: positive: PERRL, No scleral icterus Neck: positive: Other (Full (obese) neck) Respiratory: positive: No respiratory distress, Breath sounds nml. negative: Wheezes, Rales Cardiovascular: positive: Regular rate & rhythm, No murmur (1-2/6 SM LUSB) Abdomen: positive: No organomegaly (Not appreciable with habitus), Other (Very Obese abdomen with striations, + BS, non taut, no appreciable fluid wave, Patient feels "cabezas" than usual but acknowledges for the most part that is her "usual" obese abdomen No RUQ tenderness, No CVA tenderness, No suprapubic tenderness) Skin: positive: Warm, Dry, Other (anicteric). negative: Pallor Extremities: positive: Other (no pretibial edema). negative: Pedal edema Neurologic/Psychiatric: positive: Oriented x3, Mood/affect nml, Other (visitors in) - Lab Results Fish Bones: 05/28/19 04:50 05/28/19 04:50 Other Labs: Lab Results x24hrs 05/27/19 05/27/19 05/27/19 Range/Units 06:10 06:10 06:10 WBC (4.8-10.8) x10^3/uL RBC (4.20-5.40) 10^6/uL Hgb (12.0-16.0) g/dL Hct (37.0-47.0) % MCV (81.0-99.0) fL MCH (27.0-31.0) pg MCHC (32.0-36.0) g/dL RDW (12.0-15.0) % Plt Count (130-450) 10^3/uL MPV (7.9-10.8) fL Sodium 130 L (135-145) mmol/L Potassium 4.0 (3.5-5.0) mmol/L Chloride 101 (101-111) mmol/L Carbon Dioxide 18 L (21-32) mmol/L Anion Gap 11.0 (6-13) BUN 98 H* (6-20) mg/dL Creatinine 4.0 H (0.4-1.0) mg/dL Estimated GFR (MDRD) 12 L (>89) Glucose 141 H (70-100) mg/dL POC Whole Bld Glucose (70 - 100) mg/dL Calcium 8.1 L (8.5-10.3) mg/dL Total Bilirubin 3.3 H (0.2-1.0) mg/dL Direct Bilirubin 2.3 H (0.1-0.5) mg/dL AST 83 H (10-42) IU/L ALT 45 (10-60) IU/L Alkaline Phosphatase 136 H (42-121) IU/L Troponin I 0.04 (<0.49) ng/mL Troponin I High Sens 35.5 H* (2.3-14.8) pg/mL Total Protein 6.1 L (6.7-8.2) g/dL Albumin 2.0 L (3.2-5.5) g/dL Globulin 4.1 (2.1-4.2) g/dL TSH (0.34-5.60) uIU/mL 05/27/19 05/27/19 05/26/19 Range/Units 06:10 06:10 20:56 WBC 18.0 H (4.8-10.8) x10^3/uL RBC 3.77 L (4.20-5.40) 10^6/uL Hgb 12.7 (12.0-16.0) g/dL Hct 35.9 L (37.0-47.0) % MCV 95.2 (81.0-99.0) fL MCH 33.7 H (27.0-31.0) pg MCHC 35.4 (32.0-36.0) g/dL RDW 15.0 (12.0-15.0) % Plt Count 57 L (130-450) 10^3/uL MPV 12.3 H (7.9-10.8) fL Sodium (135-145) mmol/L Potassium (3.5-5.0) mmol/L Chloride (101-111) mmol/L Carbon Dioxide (21-32) mmol/L Anion Gap (6-13) BUN (6-20) mg/dL Creatinine (0.4-1.0) mg/dL Estimated GFR (MDRD) (>89) Glucose (70-100) mg/dL POC Whole Bld Glucose 177 H (70 - 100) mg/dL Calcium (8.5-10.3) mg/dL Total Bilirubin (0.2-1.0) mg/dL Direct Bilirubin (0.1-0.5) mg/dL AST (10-42) IU/L ALT (10-60) IU/L Alkaline Phosphatase (42-121) IU/L Troponin I (<0.49) ng/mL Troponin I High Sens (2.3-14.8) pg/mL Total Protein (6.7-8.2) g/dL Albumin (3.2-5.5) g/dL Globulin (2.1-4.2) g/dL TSH 0.93 (0.34-5.60) uIU/mL 05/26/19 05/26/19 05/26/19 Range/Units 17:17 16:50 11:07 WBC (4.8-10.8) x10^3/uL RBC (4.20-5.40) 10^6/uL Hgb (12.0-16.0) g/dL Hct (37.0-47.0) % MCV (81.0-99.0) fL MCH (27.0-31.0) pg MCHC (32.0-36.0) g/dL RDW (12.0-15.0) % Plt Count (130-450) 10^3/uL MPV (7.9-10.8) fL Sodium (135-145) mmol/L Potassium (3.5-5.0) mmol/L Chloride (101-111) mmol/L Carbon Dioxide (21-32) mmol/L Anion Gap (6-13) BUN (6-20) mg/dL Creatinine (0.4-1.0) mg/dL Estimated GFR (MDRD) (>89) Glucose (70-100) mg/dL POC Whole Bld Glucose 172 H 151 H (70 - 100) mg/dL Calcium (8.5-10.3) mg/dL Total Bilirubin (0.2-1.0) mg/dL Direct Bilirubin (0.1-0.5) mg/dL AST (10-42) IU/L ALT (10-60) IU/L Alkaline Phosphatase (42-121) IU/L Troponin I 0.05 (<0.49) ng/mL Troponin I High Sens 29.0 H* (2.3-14.8) pg/mL Total Protein (6.7-8.2) g/dL Albumin (3.2-5.5) g/dL Globulin (2.1-4.2) g/dL TSH (0.34-5.60) uIU/mL - Diagnostic Imaging Diagnostic Imaging Results: positive: Final report reviewed (CT Abdomen / Pelvis; non contrast (due to Cr/GFR) Right kidney; Diffuse R renalfullness w/ perinephric edema, No hydronephris or renal stone Left Kidney; Mild diffuse L renal fullness and trace perinephric soft tissue stranding Cirrhotic liver mophrology with nodular contour/ Enlarged caudate lobe Small amount ascites mostly RUQ developed since 05/24 imaging, Mild anasarca Small amount air in urinary bladder lumen (? due to recent cath Diverticulosis VEnous duplex Bilat LE; No DVT VQ scan; low prob PE) Sepsis Event Note (H) - Evaluation Current Stage of Sepsis: Sepsis Possible source of Sepsis: positive: Genitourinary - Sepsis Criteria Sepsis Criteria: Recorded Temperature greater than 38.3C or Less than 36C, Recorded Heart Rate greater than 90 bpm, WBC count greater than 10% bands, WBC count greater than 12,000 or less than 4000, Renal: urine output less than 0.5ml/kg/hr for 2 hours or creatinine gr, Metabolic: lactate > 2 mmol/L, Hepatic: Bilirubin greater than 2mg/dl Assessment/Plan - Problem List (1) Pyelonephritis Impression: 1)Pyelonephristis Bilateral Ecoli pyleonephritis with ecoli bacteremia/ sensitive to ceftriaxone sepsis resolved,clinically improved, looks completely nontoxic, defevervesced Afebrile since 05/25 5 am (was 38.1) As noted 05/26 note, initially improving WBC sl increase 05/26 WBC increased from yesterday 16K>12.5>> 15.9K>>18K today CT abdomen (noncontrast) with NO clear abscess (per Radiologist noncontrast CT likely more informative than US given habitus) NO tenderness what so ever with firm palpation of CVA's Considered PE re: leukocytosis; neg VQ/duplex LE Cdif sent when reported + 3 loose stools; + (see below) day 4 of antibiotics Sethi d/c'd 05/26 Recheck CBC in am Total treatment 10-14 days (thru 06/03 would be 10 days) SCD's for VTE proph/ CRCl 10, unble to use lovenox, with current platelet count, not using UFH #Leukocytosis; Cdif +, started vancomycin PO 125 qid (for w/u of leukocytosis ; eval'd for abscess, PE, as well) Since will be on antibiotcis at least thru 06/03 for pyelo, will need vanco x 10 days beyond completion of ABX (2) E.Coli bacteremia 4/4 blood cultures positive for Ecoli, consistent with urine culture as expected Sepsis resolved as above Continue ceftriaxone, As above afebrile, and CT (noncontrast) no clear , (3) Sepsis; Resolved (4)JEFFY (vs acute on chronic; Dont know most recent baseline (diabetic) related to sepsis, volume depletion and continued ACEI before admit interfering w/ renal autoreg Outside records withmost recent Cr 2014 0.7 (in 2013, 1.0) No labs since Improving slowly 05/23 5.3->5.1->5.0->4.4> 4.0 today but BUN still elevated (see below , ) continue NS (reduced rate from 150 cc/hr to 100cc/hr) -HOLD lisinopril for now -Recheck BMP tomorrow 1) Elevated BUN Despite improving renal function by Cr with ? cirrhosis on imaging, reduced platelets ? GIB H/H 14/40.4 on admit; 12.7/35.9 not alarming seems appropriate w/ dilution of IVF since here Checking stool hemocult No obvious gut bleed 5) new afib (see details under S) rate improved w/ meto 5 IV x 2, starting low dose BB EKG with outpossibe ischemic changes, (TW inversions III, F, Sl ST depresion TSH pending Echo tomorrow, check LA size, ? WMA, As above have low suspician for PE / VTE, asymptomatic, hemodynamically stable , Sats upper 90's RA , no LE pain, swelling, WEllls score low risk 1.5DDimer would be spuruious w/ CrCl Platelets reduced, but doubt massive thrombus given exam (See below); holding heparin Will discuss stroke prevention /anticoagulation w/patient before d/c [id number] 3; need to check re: clearance for either eliquis(preferred re: outcomes) vs xarelto Cirrhosis; Nodular liver on CT (more detail on todays report likey relate dto ETOH but needs formal w/u mild transaminitis likely passive congestion, bili ws 2.3 (1.3 indirect) on admit, 3.3 today ( Hyponatremia Conclusion/Plan: Na 127 on admission,>>129>>131> 130 Likely hypovolemic hyponatremia on presentation; Reducing IVF depending on UOP, hope to reduce IVF rate today / with mild ascites new since 05/24 and Thombocytopeina ; not on heparin, doubt massive thrombosis (but ruling out PE) , not on heparin; HIT not in DDX Hx heavy etoh use, AND todays CT notes more detail on nodular liver/ likely early cirrhosis; conceivably she had reactive thrmbocytosis on presentation, and is now refleting her baseline with alcohol use dont know baseline- Type 2 diabetes mellitus Conclusion/Plan: On metformin as outpatient. On lantus 5 q pm since admit w/ qac/hs FSBG 173 4pm, 177 8p, (got 5 u at 9pm) 138 4aa, 171 8a Got 3 units of correctional coverage ysterday Increase PM lantus to 8 units (continue qac/hs fsbg w/ low dose SSI) Hypertension Conclusion/Plan: Lisinopril on hold given JEFFY 134/75, 133/72, 120/73, 149/93 Got nS at 150ccc/hr x 2 days, reduced to 100cc/hr yesterday, re: volume contribution continue home CPAP will also help control 12) SEGUN CPAP ; on home CPAP again since last night (05/26 pm); slept better Hyperlipidemia Conclusion/Plan: On simvastatin at home. Resume statin Hyperkalemia Conclusion/Plan: related to JEFFY resolved Volume depletion. Resolved. Conclusion/Plan: In setting of minimal to no PO intake in >3 days. was hyponatremic , IVF rate reduced on 05/26 early (and reducing further today)
[2019-05-27 11:25] LABS: INR 1.5 (0.8-1.2); PT - PROTHROMBIN TIME 16.6 secs (9.9-12.6)
--- NOTE | 2019-05-27 12:40 | XRAY Report ---
Reason: part of vq scanprotocol Procedure Date: 05/27/2019 Accession Number: [id number] / [id number] Procedure: XR - Chest 2 View X-Ray CPT Code: 09270 FULL RESULT: EXAM: CHEST RADIOGRAPHY EXAM DATE: 05/27/2019 11:31 AM. CLINICAL HISTORY: Atrial fibrillation. COMPARISON: XR CHEST PA AND LAT 01/20/2011 11:52 PM. TECHNIQUE: 2 views. FINDINGS: Lungs/Pleura: Mild bronchial thickening. Patchy left lower lobe opacity. No pleural effusions. No pneumothorax. No vascular congestion. Mediastinum: Heart size is upper normal. Aorta is mildly tortuous. Other: Degenerative changes of the thoracic spine. IMPRESSION: 1. Patchy left lower lobe opacity concerning for developing consolidation. 2. No vascular congestion. RADIA
--- NOTE | 2019-05-27 12:42 | Ultrasound Report ---
Reason: along w/ VQ scan, JESUSITAdoes not allow CTA Procedure Date: 05/27/2019 Accession Number: [id number] / [id number] Procedure: US - Duplex Ext Veins Bilateral CPT Code: FULL RESULT: EXAM: BILATERAL LOWER EXTREMITY VENOUS ULTRASOUND EXAM DATE: 05/27/2019 11:07 AM. CLINICAL HISTORY: Atrial fibrillation. Assess for pulmonary embolus. COMPARISON: None. TECHNIQUE: Real-time sonographic vascular imaging was performed by the oil laboratory analyst through the lower extremities utilizing both color-flow and Doppler spectral analysis. Multiple hvac sales representative static images were saved for review. FINDINGS: Right: Common Femoral Vein (CFV): Normal. CFV-GSV Junction: Normal. Profunda Femoral Vein (PFV): Normal. Femoral Vein (FV) Prox: Normal. Femoral Vein (FV) Mid: Normal. Femoral Vein (FV) Dist: Normal. Popliteal Vein: Normal. Posterior Tibial Veins: Normal. Peroneal Veins: Normal. Left: Common Femoral Vein (CFV): Normal. CFV-GSV Junction: Normal. Profunda Femoral Vein (PFV): Normal. Femoral Vein (FV) Prox: Normal. Femoral Vein (FV) Mid: Normal. Femoral Vein (FV) Dist: Normal. Popliteal Vein: Normal. Posterior Tibial Veins: Normal. Peroneal Veins: Normal. Other: None. IMPRESSION: 1. No evidence of right or left lower extremity deep venous thrombosis. RADIA
--- NOTE | 2019-05-27 14:00 | Nuclear Medicine Report ---
Reason: new afib Procedure Date: 05/27/2019 Accession Number: [id number] / [id number] Procedure: NM - Lung Vent/Perf V/Q CPT Code: FULL RESULT: EXAM: VENTILATION/PERFUSION SCAN (V/Q SCAN) EXAM DATE: 05/27/2019 01:24 PM. CLINICAL HISTORY: New afib. COMPARISON: CHEST 2 VIEW 05/27/2019 11:05 AM. TECHNIQUE: Patient was administered 44.7 mCi of technetium 99m DTPA aerosol by inhalation and 8 standard ventilation images of the lungs were obtained. Next, the patient was injected with 5.1 mCi of technetium 99m MAA intravenously and 8 standard perfusion images of the lungs were obtained. FINDINGS: Perfusion images demonstrate mildly inhomogeneous perfusion to the lungs bilaterally without convincing significant segmental deficit. Ventilatory images demonstrate conspicuous central airway deposition consistent with obstructive pulmonary physiology. Otherwise corresponding radiotracer distribution . No convincing mismatch. Comparison chest radiograph demonstrates patchy left lower lobe opacity. IMPRESSION: 1. No ventilation/perfusion mismatches to indicate pulmonary emboli. Low probability for acute pulmonary embolism. 2. Central airway deposition consistent with obstructive pulmonary physiology. RADIA
[2019-05-27] MEDS: VANCOMYCIN 125 MG CAPSULE PO SCH ×2 (19:44→22:10)
[2019-05-27] MEDS: cefTRIAXone 2 GM in SODIUM CHLORIDE 0.9% MINIBAG 100 ML IV SCH (22:10)
[2019-05-27] MEDS: INSULIN GLARGINE 300 UNIT/3 ML PEN SUBQ SCH (22:13)
[2019-05-28] MEDS: SODIUM CHLORIDE FLUSH 0.9% 10 ML SYRINGE IVP SCH ×3 (02:22→16:53)
[2019-05-28 05:08] LABS: BASOPHILS % (AUTO) 0.2 %; EOSINOPHILS % (AUTO) 0.9 %; HGB - HEMOGLOBIN 11.4 g/dL (12.0-16.0); MEAN CORPUSCULAR HEMOGLOBIN 32.5 pg (27.0-31.0); MEAN CORPUSCULAR HGB CONC 34.4 g/dL (32.0-36.0); MEAN CORPUSCULAR VOLUME 94.3 fL (81.0-99.0); MEAN PLATELET VOLUME 14.1 fL (7.9-10.8); MONOCYTES % (AUTO) 4.6 %; NEUTROPHILS % (AUTO) 86.3 %; PLT - PLATELET COUNT 68 10^3/uL (130-450); RED BLOOD COUNT 3.51 10^6/uL (4.20-5.40); RED CELL DISTRIBUTION WIDTH 15.5 % (12.0-15.0); WHITE BLOOD COUNT 20.1 x10^3/uL (4.8-10.8)
[2019-05-28 05:28] LABS: ABNORMAL LYMPHS % (MANUAL) 0 %
[2019-05-28 05:42] LABS: CALCIUM 8.3 mg/dL (8.5-10.3); CREATININE 3.5 mg/dL (0.4-1.0)
[2019-05-28 05:43] LABS: ALBUMIN 1.9 g/dL (3.2-5.5); ALBUMIN/GLOBULIN RATIO 0.5 (1.0-2.2); BILIRUBIN,TOTAL 3.3 mg/dL (0.2-1.0); TOTAL PROTEIN 5.9 g/dL (6.7-8.2)
[2019-05-28 06:00] LABS: BAND NEUTROPHILS % (MANUAL) 12 %; DIFFERENTIAL COMMENT MANUAL DIFFERENTIAL; LYMPHOCYTES # (MANUAL) 1.2 10^3/uL (1.5-3.5); LYMPHOCYTES % (MANUAL) 6 %; METAMYELOCYTES % (MANUAL) 1 %; MONOCYTES # (MANUAL) 1.2 10^3/uL (0.0-1.0); MYELOCYTES % (MANUAL) 1 %; PLATELET ESTIMATE, MANUAL DECREASED (<130,000) (NORMAL); RBC MORPHOLOGY (MULTIPLE) NORMAL APPEARANCE (NORMAL)
--- NOTE | 2019-05-28 07:32 | PROVIDER PROGRESS NOTE ---
Subjective - Prog Note Date Prog Note Date: 05/28/19 Prog Note Time: 07:31 - Subjective Pt reports feeling: Improved (overall feels better, but "stressing" about all the things wrong, had a few episodes of incont of loose stool today, no fever, chills, palpitations, near syncope,chest pain, no Ruq pain, tolerating PO, no significant abdominal pain) Current Medications - Current Medications Current Medications: Active Medications Acetaminophen (Tylenol) 650 mg PO Q4HR PRN PRN Reason: Pain or Fever > 38C (100.4F) Calcium Carbonate/Glycine (Tums) 500 mg PO BID PRN PRN Reason: Heartburn Last Admin: 05/26/19 18:52 Dose: 500 mg Ceftriaxone Sodium 2 gm/ (Sodium Chloride) 100 mls @ 200 mls/hr IV 2200 [facility] Last Infusion: 05/27/19 22:40 Dose: Infused Sodium Chloride (Normal Saline 0.9%) 1,000 mls @ 83 mls/hr IV .Q12H3M [facility] Last Admin: 05/27/19 21:05 Dose: 83 mls/hr Insulin Aspart (Novolog) 1 - 5 unit SUBQ 0800,1200,1700,2100 [facility]; Protocol Last Admin: 05/27/19 22:14 Dose: 1 unit Insulin Glargine (Lantus Solostar) 8 unit SUBQ QPM [facility] Last Admin: 05/27/19 22:13 Dose: 8 unit Metoprolol Tartrate (Lopressor) 50 mg PO BID [facility] Last Admin: 05/27/19 22:11 Dose: 50 mg Polyethylene Glycol (Miralax) 17 gm PO DAILY [facility] Last Admin: 05/27/19 09:27 Dose: Not Given Senna (Senokot) 8.6 - 17.2 mg PO DAILY [facility] Last Admin: 05/27/19 09:23 Dose: 8.6 mg Sodium Chloride (Normal Saline Flush 0.9%) 10 ml IVP PRN PRN PRN Reason: NEEDED PER PROVIDER ORDERS Last Admin: 05/26/19 17:54 Dose: 10 ml Sodium Chloride (Normal Saline Flush 0.9%) 10 ml IVP 0100,0900,1700 [facility] Last Admin: 05/28/19 02:22 Dose: Not Given Vancomycin HCl (Vancocin) 125 mg PO QID [facility] Last Admin: 05/27/19 22:10 Dose: 125 mg Metformin HCl 500 mg PO BIDWM 12/21/13 Simvastatin 20 mg PO QPM 05/23/19 Lisinopril 20 mg PO BID 05/24/19 Objective - Vital Signs/Intake & Output Reviewed Vital Signs: Yes Vital Signs: Vital Signs x48h Temp Pulse Resp BP Pulse Ox 05/28/19 04:49 36.4 C L 85 16 115/87 H 97 05/28/19 00:00 36.4 C L 101 H 16 111/85 H 95 Intake & Output: Intake & Output 05/25/19 05/26/19 05/27/19 05/28/19 23:59 23:59 23:59 23:59 Intake Total 4948.75 4077.5 2693.333 Output Total 1125 1475 1070 450 Balance 3823.75 2602.5 1623.333 -450 - Objective General Appearance: positive: No acute distress, Alert (Animated, mother in, nontoxic appearing, obese) Eyes Bilateral: positive: Normal inspection, PERRL, No scleral icterus ENT: positive: Other (full/obese neck and facies (baseline)) Neck: positive: Other (Very full/obese neck at baseline/no change) Respiratory: positive: Chest non-tender, No respiratory distress, Breath sounds nml (unlabored resps, upper 90's Sa02 on room air) Cardiovascular: positive: Regular rate & rhythm (telemetry; afib, Rate overnight 90's, and even into 80's; No RVR), No murmur (no murmur appreciated), Other (no mottling, no LE edema (maybe very trace pretibial)) Abdomen: positive: No organomegaly (not able to appreciate if organomegaly given obese habitus (cirrhotic nodular liver on CT imaging, no splenomegaly on CT imaging)), Nml bowel sounds, No distention (obese, but no fluid wave). negative: Tenderness Skin: positive: No rash, Warm, Dry. negative: Diaphoresis Extremities: positive: Other (trace pretibial edema) Neurologic/Psychiatric: positive: Oriented x3, Mood/affect nml - Lab Results Fish Bones: 05/28/19 15:10 05/28/19 04:50 Other Labs: Lab Results x24hrs 05/28/19 05/28/19 05/27/19 Range/Units 04:50 04:50 15:30 WBC 20.1 H (4.8-10.8) x10^3/uL RBC 3.51 L (4.20-5.40) 10^6/uL Hgb 11.4 L (12.0-16.0) g/dL Hct 33.1 L (37.0-47.0) % MCV 94.3 (81.0-99.0) fL MCH 32.5 H (27.0-31.0) pg MCHC 34.4 (32.0-36.0) g/dL RDW 15.5 H (12.0-15.0) % Plt Count 68 L (130-450) 10^3/uL MPV 14.1 H (7.9-10.8) fL Neut # (Auto) Not Reportable Lymph # (Auto) Not Reportable Jasper # (Auto) Not Reportable Eos # (Auto) Not Reportable Baso # (Auto) Not Reportable Absolute Nucleated RBC Not Reportable Total Counted 100 Band Neuts % (Manual) 12 H (0 - 10) % Abnorm Lymph % (Manual) 0 % Metamyelocytes % 1 H ( - 0) % Myelocytes % 1 H ( - 0) % Nucleated RBC % Not Reportable Neutrophils # (Manual) 17.3 H (1.5-6.6) 10^3/uL Lymphocytes # (Manual) 1.2 L (1.5-3.5) 10^3/uL Monocytes # (Manual) 1.2 H (0.0-1.0) 10^3/uL Eosinophils # (Manual) 0.0 (0-0.7) 10^3/uL Basophils # (Manual) 0.0 (0-0.1) 10^3/uL Differential Comment MANUAL DIFFERENTIAL Platelet Estimate DECREASED (<130,000) (NORMAL) RBC Morph Micro Appear NORMAL APPEARANCE (NORMAL) PT (9.9-12.6) secs INR (0.8-1.2) APTT (24.9-33.3) secs Fibrinogen (220-496) mg/dL Sodium 134 L (135-145) mmol/L Potassium 3.9 (3.5-5.0) mmol/L Chloride 106 (101-111) mmol/L Carbon Dioxide 16 L (21-32) mmol/L Anion Gap 12.0 (6-13) BUN 102 H* (6-20) mg/dL Creatinine 3.5 H (0.4-1.0) mg/dL Estimated GFR (MDRD) 14 L (>89) Glucose 149 H (70-100) mg/dL Calcium 8.3 L (8.5-10.3) mg/dL Total Bilirubin 3.3 H (0.2-1.0) mg/dL Direct Bilirubin (0.1-0.5) mg/dL AST 54 H (10-42) IU/L ALT 42 (10-60) IU/L Alkaline Phosphatase 168 H (42-121) IU/L Troponin I (<0.49) ng/mL Troponin I High Sens (2.3-14.8) pg/mL Total Protein 5.9 L (6.7-8.2) g/dL Albumin 1.9 L (3.2-5.5) g/dL Globulin 4.0 (2.1-4.2) g/dL Albumin/Globulin Ratio 0.5 L (1.0-2.2) C. difficile Tox B Gene POSITIVE A* (NEGATIVE) 05/27/19 05/27/19 05/27/19 Range/Units 11:00 11:00 11:00 WBC (4.8-10.8) x10^3/uL RBC (4.20-5.40) 10^6/uL Hgb (12.0-16.0) g/dL Hct (37.0-47.0) % MCV (81.0-99.0) fL MCH (27.0-31.0) pg MCHC (32.0-36.0) g/dL RDW (12.0-15.0) % Plt Count (130-450) 10^3/uL MPV (7.9-10.8) fL Neut # (Auto) Lymph # (Auto) Jasper # (Auto) Eos # (Auto) Baso # (Auto) Absolute Nucleated RBC Total Counted Band Neuts % (Manual) (0 - 10) % Abnorm Lymph % (Manual) % Metamyelocytes % ( - 0) % Myelocytes % ( - 0) % Nucleated RBC % Neutrophils # (Manual) (1.5-6.6) 10^3/uL Lymphocytes # (Manual) (1.5-3.5) 10^3/uL Monocytes # (Manual) (0.0-1.0) 10^3/uL Eosinophils # (Manual) (0-0.7) 10^3/uL Basophils # (Manual) (0-0.1) 10^3/uL Differential Comment Platelet Estimate (NORMAL) RBC Morph Micro Appear (NORMAL) PT 16.6 H (9.9-12.6) secs INR 1.5 H (0.8-1.2) APTT 25.4 (24.9-33.3) secs Fibrinogen 761 H (220-496) mg/dL Sodium (135-145) mmol/L Potassium (3.5-5.0) mmol/L Chloride (101-111) mmol/L Carbon Dioxide (21-32) mmol/L Anion Gap (6-13) BUN (6-20) mg/dL Creatinine (0.4-1.0) mg/dL Estimated GFR (MDRD) (>89) Glucose (70-100) mg/dL Calcium (8.5-10.3) mg/dL Total Bilirubin (0.2-1.0) mg/dL Direct Bilirubin (0.1-0.5) mg/dL AST (10-42) IU/L ALT (10-60) IU/L Alkaline Phosphatase (42-121) IU/L Troponin I (<0.49) ng/mL Troponin I High Sens (2.3-14.8) pg/mL Total Protein (6.7-8.2) g/dL Albumin (3.2-5.5) g/dL Globulin (2.1-4.2) g/dL Albumin/Globulin Ratio (1.0-2.2) C. difficile Tox B Gene (NEGATIVE) 05/27/19 05/27/19 Range/Units 06:10 06:10 WBC (4.8-10.8) x10^3/uL RBC (4.20-5.40) 10^6/uL Hgb (12.0-16.0) g/dL Hct (37.0-47.0) % MCV (81.0-99.0) fL MCH (27.0-31.0) pg MCHC (32.0-36.0) g/dL RDW (12.0-15.0) % Plt Count (130-450) 10^3/uL MPV (7.9-10.8) fL Neut # (Auto) Lymph # (Auto) Jasper # (Auto) Eos # (Auto) Baso # (Auto) Absolute Nucleated RBC Total Counted Band Neuts % (Manual) (0 - 10) % Abnorm Lymph % (Manual) % Metamyelocytes % ( - 0) % Myelocytes % ( - 0) % Nucleated RBC % Neutrophils # (Manual) (1.5-6.6) 10^3/uL Lymphocytes # (Manual) (1.5-3.5) 10^3/uL Monocytes # (Manual) (0.0-1.0) 10^3/uL Eosinophils # (Manual) (0-0.7) 10^3/uL Basophils # (Manual) (0-0.1) 10^3/uL Differential Comment Platelet Estimate (NORMAL) RBC Morph Micro Appear (NORMAL) PT (9.9-12.6) secs INR (0.8-1.2) APTT (24.9-33.3) secs Fibrinogen (220-496) mg/dL Sodium (135-145) mmol/L Potassium (3.5-5.0) mmol/L Chloride (101-111) mmol/L Carbon Dioxide (21-32) mmol/L Anion Gap (6-13) BUN (6-20) mg/dL Creatinine (0.4-1.0) mg/dL Estimated GFR (MDRD) (>89) Glucose (70-100) mg/dL Calcium (8.5-10.3) mg/dL Total Bilirubin 3.3 H (0.2-1.0) mg/dL Direct Bilirubin 2.3 H (0.1-0.5) mg/dL AST 83 H (10-42) IU/L ALT 45 (10-60) IU/L Alkaline Phosphatase 136 H (42-121) IU/L Troponin I 0.04 (<0.49) ng/mL Troponin I High Sens 35.5 H* (2.3-14.8) pg/mL Total Protein 6.1 L (6.7-8.2) g/dL Albumin 2.0 L (3.2-5.5) g/dL Globulin 4.1 (2.1-4.2) g/dL Albumin/Globulin Ratio (1.0-2.2) C. difficile Tox B Gene (NEGATIVE) Sepsis Event Note (H) - Evaluation Current Stage of Sepsis: Sepsis Possible source of Sepsis: positive: Genitourinary - Sepsis Criteria Sepsis Criteria: Recorded Temperature greater than 38.3C or Less than 36C, Recorded Heart Rate greater than 90 bpm, WBC count greater than 10% bands, WBC count greater than 12,000 or less than 4000, Renal: urine output less than 0.5ml/kg/hr for 2 hours or creatinine gr, Metabolic: lactate > 2 mmol/L, Hepatic: Bilirubin greater than 2mg/dl Assessment/Plan - Problem List (1) Pyelonephritis Impression: 1)Pyelonephristis Bilateral / Associated sepsis resolved Ecoli pyleonephritis with ecoli bacteremia/ sensitive to ceftriaxone (Resistant to bactrim) sepsis resolved,clinically improved, looks completely nontoxic, defevervesced Afebrile since 05/25 5 am (was 38.1) As noted 05/26 note, initially improving WBC sl increase 05/26 WBC increased from yesterday 16K>12.5>> 15.9K>>18K today CT abdomen (noncontrast) with NO clear abscess (per Radiologist noncontrast CT likely more informative than US given habitus) NO tenderness what so ever with firm palpation of CVA's Considered PE re: leukocytosis; neg VQ/duplex LE Cdif sent when reported + 3 loose stools; + (see below) day 5 of antibiotics Had increasing WBC despite clear clinical improvement w/ extensive w/u; determined 05/27 to be Cdif (see below) Needs f/u on d/c (had not seen her PCP in long time; MARITZA Ochoa Total treatment 10 days (thru 06/03 would be 10 days) VTE prophylaxis SCD's for VTE proph/ CRCl 10, unble to use lovenox, with current platelet count, not using UFH #Leukocytosis; Dx'd on 05/27 Cdif +, started vancomycin PO 125 qid Hoped to D/C today if afternoon WBC declining but now WBC 23K, BUT bands reduced from 12 this am to 1. Given extensive w/u to look for other source of leukocytosis, the Cdif does clearly seem to be the cause, As long as no evident severe Cdif tomorrow, and WBC improving , should be able to d/c 05/29 Since will be on antibiotcis at least thru 06/03 for pyelo, will need vanco x 10 days beyond completion of ABX Ideally would not be on quinolone w/ Cdif, Consider Ceftin if has renal penetration, otherwise shortest course possible of quinolone thru 06/03 (2) E.Coli bacteremia 4/4 blood cultures positive for Ecoli, consistent with urine culture as expected Sepsis resolved as above Continue ceftriaxone, As above afebrile, and CT (noncontrast) dont suspect abscess (4)JEFFY (vs acute on chronic; Dont know most recent baseline (diabetic) related to sepsis, volume depletion and continued ACEI before admit interfering w/ renal autoreg Outside records withmost recent Cr 2014 0.7 (in 2013, 1.0) No labs since DefinatelyImproving slowly 05/23 5.3->5.1->5.0->4.4> 4.0 >>3.5 BUT BUN persistantly elevated (now 102) I discussed BUN w/ [place]bury operator at [facility]; he indicated this should follow the BUN and trend down ; it does not preclude discharge; continue NS at 83c/hr (reduced rate 05/27 w/ mild ascites w/ cirrhosis) Sethi d/c'd Vivien 05/26 -HOLD lisinopril for now and on d/c til f/u - 1) Elevated BUN As above, BUN increasing despite improving cr Negative stool hemocult As above Neprhology indicates this BUN elevation should improve as well since Cr improving Will check hemocult again as diarrhea increasing w/ Cdif 5) new afib New afib RVR on 05/26/ hemodynamically stable during episode, asymptomatic other than mild palpitations, no hypoxemia Rate now controlled on 50 mg PO BID metoprolol EKG with outpossibe ischemic changes, (TW inversions III, F, Sl ST depresion, but echo with no Wall motion abnormalities nor other findings, no LAE TSH normal Had low suspician for PE, Wells 1.5, VQ, LE venous duplex negative Discussed stoke prevention /anticoagulation w/patient before d/c [id number] 3; Renal function does not yet allow either eliquis or xarelto/ prefer to avoid warfarin right now with complex hospital course/early cirrhosis Doesnt need to urgently start anticoagulation, but as soon as possible; If renal fxn markedly improved 05/29 could consider on d/c vs defer to PCP (soon) Cirrhosis; hx alcohol use/ no prior diagnosis Nodular liver on CT likey relatedto ETOH but needs formal w/u Transaminases which were slightly increased improved, bili stable, inr 1.7 ON A DMIT, 1.5 05/27 no RUq tenderness should have outpatient hepatology consult ideally No etoh on discharge ( Hyponatremia/ RESOLVED Conclusion/Plan: Na 127 on admission,>>129>>131> 130> 134 TODAY Likely hypovolemic hyponatremia on presentation; Thombocytopeina Suspect chronically low platelets with early cirrhosis, with some reactive thrombocytosis on presentation, VS reduced due to acute infection/sepsis, and some dilution ; At any rate it is improving 89K today 05/27 ; not on heparin, doubt massive thrombosis (but ruling out PE) , not on heparin; HIT not in DDX Hx heavy etoh use, AND todays CT notes more detail on nodular liver/ likely early cirrhosis; conceivably she had reactive thrmbocytosis on presentation, and is now refleting her baseline with alcohol use dont know baseline- Type 2 diabetes mellitus Conclusion/Plan: On metformin as outpatient. On lantus 8q pm since admit w/ qac/hs [facility] w/ reasonable glucose control Hold metformin on d/c [facility] will not cover lantus for use, Is approved for kwikpen NPH 5 units bid which would allow reasonable DM control and no hypoglycemia, til followup Hypertension Conclusion/Plan: Lisinopril on hold given JEFFY Good BP control currently Have reduced fluid rate (also helping BP control) Was started on metoprolol as above for rate control continue home CPAP will also help control 12) SEGUN CPAP ; on home CPAP again since 05/26 pm; slept better Hyperlipidemia Conclusion/Plan: On simvastatin at home. Resume statin Hyperkalemia/REsolved Conclusion/Plan: related to JEFFY resolved Volume depletion. Resolved. Conclusion/Plan: In setting of minimal to no PO intake in >3 days. was hyponatremic ,
[2019-05-28] MEDS: METOPROLOL TARTRATE 50 MG TABLET PO SCH ×2 (08:43→20:46)
[2019-05-28] MEDS: SENNA 8.6 MG TABLET PO SCH (08:44)
[2019-05-28] MEDS: VANCOMYCIN 125 MG CAPSULE PO SCH ×4 (08:44→20:46)
[2019-05-28] MEDS: POLYETHYLENE GLYCOL 3350 17 GM PACKET PO SCH (08:44)
[2019-05-28] MEDS: INSULIN ASPART 300 UNIT/3 ML PEN SUBQ SCH ×4 (08:45→20:47)
[2019-05-28] MEDS: SODIUM CHLORIDE 0.9% 1,000 ML IV SCH (11:09)
[2019-05-28 15:28] LABS: BASOPHILS % (AUTO) 0.5 %; EOSINOPHILS % (AUTO) 0.8 %; HGB - HEMOGLOBIN 12.8 g/dL (12.0-16.0); LYMPHOCYTES % (AUTO) 5.5 %; MEAN CORPUSCULAR HEMOGLOBIN 33.6 pg (27.0-31.0); MEAN CORPUSCULAR HGB CONC 35.6 g/dL (32.0-36.0); MEAN CORPUSCULAR VOLUME 94.5 fL (81.0-99.0); MONOCYTES % (AUTO) 4.2 %; NEUTROPHILS % (AUTO) 86.6 %; PLT - PLATELET COUNT 89 10^3/uL (130-450); RED BLOOD COUNT 3.81 10^6/uL (4.20-5.40); RED CELL DISTRIBUTION WIDTH 15.5 % (12.0-15.0); WHITE BLOOD COUNT 23.8 x10^3/uL (4.8-10.8)
[2019-05-28 15:35] LABS: ABNORMAL LYMPHS % (MANUAL) 0 %
[2019-05-28 15:49] LABS: BAND NEUTROPHILS % (MANUAL) 1 %; LYMPHOCYTES # (MANUAL) 0.5 10^3/uL (1.5-3.5); LYMPHOCYTES % (MANUAL) 2 %
[2019-05-28 15:50] LABS: DIFFERENTIAL COMMENT MANUAL DIFFERENTIAL; PLATELET ESTIMATE, MANUAL DECREASED (<130,000) (NORMAL); PLATELET MORPHOLOGY NORMAL APPEARANCE (NORMAL); RBC MORPHOLOGY (MULTIPLE) NORMAL APPEARANCE (NORMAL)
[2019-05-28] MEDS ORDERED: SODIUM CHLORIDE 0.9% 1,000 ML IV SCH (18:26)
[2019-05-28] MEDS: ATORVASTATIN 10 MG TABLET PO SCH (20:46)
[2019-05-28] MEDS: INSULIN GLARGINE 300 UNIT/3 ML PEN SUBQ SCH (20:51)
[2019-05-28] MEDS: cefTRIAXone 2 GM in SODIUM CHLORIDE 0.9% MINIBAG 100 ML IV SCH (21:22)
[2019-05-29] MEDS: SODIUM CHLORIDE FLUSH 0.9% 10 ML SYRINGE IVP SCH ×4 (04:43→23:27)
[2019-05-29 05:06] LABS: BASOPHILS # (AUTO) 0.1 10^3/uL (0.0-0.1); BASOPHILS % (AUTO) 0.2 %; EOSINOPHILS # (AUTO) 0.2 10^3/uL (0.0-0.7); EOSINOPHILS % (AUTO) 0.8 %; HGB - HEMOGLOBIN 11.6 g/dL (12.0-16.0); LYMPHOCYTES # (AUTO) 1.3 10^3/uL (1.5-3.5); LYMPHOCYTES % (AUTO) 5.9 %; MEAN CORPUSCULAR HEMOGLOBIN 32.4 pg (27.0-31.0); MEAN CORPUSCULAR HGB CONC 34.3 g/dL (32.0-36.0); MEAN CORPUSCULAR VOLUME 94.4 fL (81.0-99.0); MEAN PLATELET VOLUME 12.6 fL (7.9-10.8); MONOCYTES % (AUTO) 4.3 %; NEUTROPHILS # (AUTO) 19.8 10^3/uL (1.5-6.6); NEUTROPHILS % (AUTO) 86.5 %; PLT - PLATELET COUNT 93 10^3/uL (130-450); RED BLOOD COUNT 3.58 10^6/uL (4.20-5.40); RED CELL DISTRIBUTION WIDTH 15.7 % (12.0-15.0); WHITE BLOOD COUNT 22.8 x10^3/uL (4.8-10.8)
[2019-05-29 05:21] LABS: ALBUMIN 1.9 g/dL (3.2-5.5); ALBUMIN/GLOBULIN RATIO 0.4 (1.0-2.2); BILIRUBIN,TOTAL 3.8 mg/dL (0.2-1.0); CALCIUM 8.3 mg/dL (8.5-10.3); CREATININE 3.5 mg/dL (0.4-1.0); TOTAL PROTEIN 6.4 g/dL (6.7-8.2)
[2019-05-29 05:35] LABS: DIFFERENTIAL COMMENT MANUAL=AUTO DIFF; PLATELET ESTIMATE, MANUAL DECREASED (<130,000) (NORMAL); RBC MORPHOLOGY (MULTIPLE) NORMAL APPEARANCE (NORMAL)
[2019-05-29 08:09] LABS: GAMMA GLUTAMYL TRANSPEPTIDASE 279 IU/L (8-38)
[2019-05-29 08:10] LABS: CK- CREATINE KINASE 20 IU/L (22-269)
[2019-05-29] MEDS: INSULIN ASPART 300 UNIT/3 ML PEN SUBQ SCH ×4 (08:20→21:51)
[2019-05-29] MEDS: SODIUM CHLORIDE 0.9% 1,000 ML IV SCH ×3 (08:50→21:55)
[2019-05-29] MEDS: SENNA 8.6 MG TABLET PO SCH (08:51)
[2019-05-29] MEDS: VANCOMYCIN 125 MG CAPSULE PO SCH ×4 (08:51→21:48)
[2019-05-29] MEDS: POLYETHYLENE GLYCOL 3350 17 GM PACKET PO SCH (08:51)
[2019-05-29] MEDS: METOPROLOL TARTRATE 50 MG TABLET PO SCH ×2 (08:52→21:48)
[2019-05-29] MEDS ORDERED: cefTRIAXone 1 GM in SODIUM CHLORIDE 0.9% MINIBAG 100 ML IV SCH ×2 (09:30→21:00)
[2019-05-29 09:49] LABS: CHOLESTEROL 136 mg/dL; VLDL CHOLESTEROL 40 mg/dL
[2019-05-29 09:50] LABS: HDL CHOLESTEROL < 5 mg/dL
[2019-05-29] MEDS ORDERED: cefTRIAXone 1 GM VIAL IVP SCH (10:00)
[2019-05-29 15:55] LABS: ALBUMIN 2.1 g/dL (3.2-5.5); ALBUMIN/GLOBULIN RATIO 0.5 (1.0-2.2); CALCIUM 8.4 mg/dL (8.5-10.3); CREATININE 3.5 mg/dL (0.4-1.0); TOTAL PROTEIN 6.7 g/dL (6.7-8.2)
--- NOTE | 2019-05-29 16:20 | PROVIDER PROGRESS NOTE ---
Subjective - Prog Note Date Prog Note Date: 05/29/19 - Subjective Pt reports feeling: Improved Subjective: pt report she feel better but report she still had multiple diarrhea. Also pt present icterus sclera, significantly steady elevated Alk and GGT since pt was admitted. pt denies chest pain, fever, chill, abdominal pain. Pt's MRSP is pending now. Current Medications - Current Medications Current Medications: Active Medications Acetaminophen (Tylenol) 650 mg PO Q4HR PRN PRN Reason: Pain or Fever > 38C (100.4F) Atorvastatin Calcium (Lipitor) 10 mg PO QPM BOB Last Admin: 05/28/19 20:46 Dose: 10 mg Calcium Carbonate/Glycine (Tums) 500 mg PO BID PRN PRN Reason: Heartburn Last Admin: 05/26/19 18:52 Dose: 500 mg Sodium Chloride (Normal Saline 0.9%) 1,000 mls @ 100 mls/hr IV .Q10H BOB Stop: 05/29/19 17:35 Last Infusion: 05/29/19 16:42 Dose: 100 mls/hr Ceftriaxone Sodium 1 gm/ (Sodium Chloride) 100 mls @ 200 mls/hr IV QPM BOB Insulin Aspart (Novolog) 1 - 5 unit SUBQ 0800,1200,1700,2100 [facility]; Protocol Last Admin: 05/29/19 16:23 Dose: Not Given Insulin Human NPH (Novolin N) 8 unit SUBQ QPM [facility] Metoprolol Tartrate (Lopressor) 50 mg PO BID [facility] Last Admin: 05/29/19 08:52 Dose: 50 mg Polyethylene Glycol (Miralax) 17 gm PO DAILY [facility] Last Admin: 05/29/19 08:51 Dose: Not Given Senna (Senokot) 8.6 - 17.2 mg PO DAILY [facility] Last Admin: 05/29/19 08:51 Dose: Not Given Sodium Chloride (Normal Saline Flush 0.9%) 10 ml IVP PRN PRN PRN Reason: NEEDED PER PROVIDER ORDERS Last Admin: 05/26/19 17:54 Dose: 10 ml Sodium Chloride (Normal Saline Flush 0.9%) 10 ml IVP 0100,0900,1700 [facility] Last Admin: 05/29/19 16:16 Dose: 10 ml Vancomycin HCl (Vancocin) 125 mg PO QID [facility] Last Admin: 05/29/19 16:47 Dose: 125 mg Metformin HCl 500 mg PO BIDWM 12/21/13 Simvastatin 20 mg PO QPM 05/23/19 Lisinopril 20 mg PO BID 05/24/19 Objective - Vital Signs/Intake & Output Reviewed Vital Signs: Yes Vital Signs: Vital Signs x48h Temp Pulse Resp BP BP Pulse Ox 05/29/19 15:57 126 H 20 117/80 99 05/29/19 11:30 36.4 C L 79 20 124/81 H 99 05/29/19 08:52 122/69 Intake & Output: Intake & Output 05/26/19 05/27/19 05/28/19 05/29/19 23:59 23:59 23:59 23:59 Intake Total 4077.5 2693.333 3910.75 1538.75 Output Total 1475 1070 450 850 Balance 2602.5 2887.499 2202.75 688.75 - Objective General Appearance: positive: No acute distress, Alert. negative: Lethargic Eyes Bilateral: positive: Normal inspection, PERRL, No lid inflammation, Conjunctivae nml ENT: positive: ENT inspection nml, Pharynx nml, No signs of dehydration. negative: Purulent nasal drainage, Pharyngeal erythema, Oral lesions Neck: positive: Nml inspection, Thyroid nml, No JVD, Trachea midline. negative: Thyromegaly, Lymphadenopathy (R), Lymphadenopathy (L), Stiff neck, Swelling/bruising, Tracheal deviation Respiratory: positive: Chest non-tender, No respiratory distress, Breath sounds nml. negative: Wheezes, Rales, Rhonchi Cardiovascular: positive: Regular rate & rhythm, No murmur, No gallop. negative: Irregularly irregular, Extrasystoles, Tachycardia, Bradycardia, JVD present, Systolic murmur, Diastolic murmur Peripheral Pulses: 2+ Radial (R), 2+ Radial (L), 2+ Dorsalis pedis (R), 2+ Dorsalis pedis (L) Abdomen: positive: Non-tender, No organomegaly, Nml bowel sounds. negative: No distention, Tenderness, Guarding, Rebound Back: positive: Nml inspection. negative: CVA tenderness (R), CVA tenderness (L) Skin: positive: No rash, Warm, Dry, Other (jaundice). negative: Cyanosis, Diaphoresis, Pallor Extremities: positive: Non-tender, Full ROM, Nml appearance. negative: Calf tenderness, Joint swelling, Enid's sign/cords Neurologic/Psychiatric: positive: Oriented x3, Motor nml, Sensation nml, Mood/affect nml. negative: Weakness, Sensory loss, Facial droop, Slurred/abnml speech, Depressed mood/affect - Lab Results Fish Bones: 05/30/19 05:58 05/30/19 05:58 Other Labs: Lab Results x24hrs 05/29/19 05/29/19 05/29/19 Range/Units 15:35 15:35 07:40 WBC (4.8-10.8) x10^3/uL RBC (4.20-5.40) 10^6/uL Hgb (12.0-16.0) g/dL Hct (37.0-47.0) % MCV (81.0-99.0) fL MCH (27.0-31.0) pg MCHC (32.0-36.0) g/dL RDW (12.0-15.0) % Plt Count (130-450) 10^3/uL MPV (7.9-10.8) fL Neut # (Auto) (1.5-6.6) 10^3/uL Lymph # (Auto) (1.5-3.5) 10^3/uL Carolina # (Auto) (0.0-1.0) 10^3/uL Eos # (Auto) (0.0-0.7) 10^3/uL Baso # (Auto) (0.0-0.1) 10^3/uL Absolute Nucleated RBC x10^3/uL Band Neuts % (Manual) Abnorm Lymph % (Manual) Nucleated RBC % /100WBC Neutrophils # (Manual) Lymphocytes # (Manual) Monocytes # (Manual) Eosinophils # (Manual) Basophils # (Manual) Differential Comment Platelet Estimate (NORMAL) RBC Morph Micro Appear (NORMAL) Sodium 136 (135-145) mmol/L Potassium 4.0 (3.5-5.0) mmol/L Chloride 107 (101-111) mmol/L Carbon Dioxide 17 L (21-32) mmol/L Anion Gap 12.0 (6-13) BUN 97 H* (6-20) mg/dL Creatinine 3.5 H (0.4-1.0) mg/dL Estimated GFR (MDRD) 14 L (>89) Glucose 114 H (70-100) mg/dL Calcium 8.4 L (8.5-10.3) mg/dL Phosphorus (2.5-4.6) mg/dL Magnesium 2.5 (1.7-2.8) mg/dL Total Bilirubin 4.0 H (0.2-1.0) mg/dL GGT (8-38) IU/L AST 63 H (10-42) IU/L ALT 52 (10-60) IU/L Alkaline Phosphatase 291 H (42-121) IU/L Ammonia 26.1 (7-35) umol/L Total Creatine Kinase (22-269) IU/L Total Protein 6.7 (6.7-8.2) g/dL Albumin 2.1 L (3.2-5.5) g/dL Globulin 4.6 H (2.1-4.2) g/dL Albumin/Globulin Ratio 0.5 L (1.0-2.2) Triglycerides ( - 149) mg/dL Cholesterol ( - 199) mg/dL LDL Cholesterol, Calc VLDL Cholesterol mg/dL HDL Cholesterol (60 - ) mg/dL LDL/HDL Ratio Cholesterol/HDL Ratio 05/29/19 05/29/19 05/29/19 Range/Units 07:40 04:55 04:55 WBC (4.8-10.8) x10^3/uL RBC (4.20-5.40) 10^6/uL Hgb (12.0-16.0) g/dL Hct (37.0-47.0) % MCV (81.0-99.0) fL MCH (27.0-31.0) pg MCHC (32.0-36.0) g/dL RDW (12.0-15.0) % Plt Count (130-450) 10^3/uL MPV (7.9-10.8) fL Neut # (Auto) (1.5-6.6) 10^3/uL Lymph # (Auto) (1.5-3.5) 10^3/uL Carolina # (Auto) (0.0-1.0) 10^3/uL Eos # (Auto) (0.0-0.7) 10^3/uL Baso # (Auto) (0.0-0.1) 10^3/uL Absolute Nucleated RBC x10^3/uL Band Neuts % (Manual) Abnorm Lymph % (Manual) Nucleated RBC % /100WBC Neutrophils # (Manual) Lymphocytes # (Manual) Monocytes # (Manual) Eosinophils # (Manual) Basophils # (Manual) Differential Comment Platelet Estimate (NORMAL) RBC Morph Micro Appear (NORMAL) Sodium (135-145) mmol/L Potassium (3.5-5.0) mmol/L Chloride (101-111) mmol/L Carbon Dioxide (21-32) mmol/L Anion Gap (6-13) BUN (6-20) mg/dL Creatinine (0.4-1.0) mg/dL Estimated GFR (MDRD) (>89) Glucose (70-100) mg/dL Calcium (8.5-10.3) mg/dL Phosphorus 4.9 H (2.5-4.6) mg/dL Magnesium (1.7-2.8) mg/dL Total Bilirubin (0.2-1.0) mg/dL GGT 279 H (8-38) IU/L AST (10-42) IU/L ALT (10-60) IU/L Alkaline Phosphatase (42-121) IU/L Ammonia (7-35) umol/L Total Creatine Kinase 20 L (22-269) IU/L Total Protein (6.7-8.2) g/dL Albumin (3.2-5.5) g/dL Globulin (2.1-4.2) g/dL Albumin/Globulin Ratio (1.0-2.2) Triglycerides 202 H ( - 149) mg/dL Cholesterol 136 ( - 199) mg/dL LDL Cholesterol, Calc Not Reportable VLDL Cholesterol 40 mg/dL HDL Cholesterol < 5 L (60 - ) mg/dL LDL/HDL Ratio Not Reportable Cholesterol/HDL Ratio Not Reportable 05/29/19 05/29/19 Range/Units 04:55 04:55 WBC 22.8 H (4.8-10.8) x10^3/uL RBC 3.58 L (4.20-5.40) 10^6/uL Hgb 11.6 L (12.0-16.0) g/dL Hct 33.8 L (37.0-47.0) % MCV 94.4 (81.0-99.0) fL MCH 32.4 H (27.0-31.0) pg MCHC 34.3 (32.0-36.0) g/dL RDW 15.7 H (12.0-15.0) % Plt Count 93 L (130-450) 10^3/uL MPV 12.6 H (7.9-10.8) fL Neut # (Auto) 19.8 H (1.5-6.6) 10^3/uL Lymph # (Auto) 1.3 L (1.5-3.5) 10^3/uL Carolina # (Auto) 1.0 (0.0-1.0) 10^3/uL Eos # (Auto) 0.2 (0.0-0.7) 10^3/uL Baso # (Auto) 0.1 (0.0-0.1) 10^3/uL Absolute Nucleated RBC 0.00 x10^3/uL Band Neuts % (Manual) Not Reportable Abnorm Lymph % (Manual) Not Reportable Nucleated RBC % 0.0 /100WBC Neutrophils # (Manual) Not Reportable Lymphocytes # (Manual) Not Reportable Monocytes # (Manual) Not Reportable Eosinophils # (Manual) Not Reportable Basophils # (Manual) Not Reportable Differential Comment MANUAL=AUTO DIFF Platelet Estimate DECREASED (<130,000) (NORMAL) RBC Morph Micro Appear NORMAL APPEARANCE (NORMAL) Sodium 137 (135-145) mmol/L Potassium 4.1 (3.5-5.0) mmol/L Chloride 107 (101-111) mmol/L Carbon Dioxide 18 L (21-32) mmol/L Anion Gap 12.0 (6-13) BUN 98 H* (6-20) mg/dL Creatinine 3.5 H (0.4-1.0) mg/dL Estimated GFR (MDRD) 14 L (>89) Glucose 121 H (70-100) mg/dL Calcium 8.3 L (8.5-10.3) mg/dL Phosphorus (2.5-4.6) mg/dL Magnesium (1.7-2.8) mg/dL Total Bilirubin 3.8 H (0.2-1.0) mg/dL GGT (8-38) IU/L AST 53 H (10-42) IU/L ALT 46 (10-60) IU/L Alkaline Phosphatase 240 H (42-121) IU/L Ammonia (7-35) umol/L Total Creatine Kinase (22-269) IU/L Total Protein 6.4 L (6.7-8.2) g/dL Albumin 1.9 L (3.2-5.5) g/dL Globulin 4.5 H (2.1-4.2) g/dL Albumin/Globulin Ratio 0.4 L (1.0-2.2) Triglycerides ( - 149) mg/dL Cholesterol ( - 199) mg/dL LDL Cholesterol, Calc VLDL Cholesterol mg/dL HDL Cholesterol (60 - ) mg/dL LDL/HDL Ratio Cholesterol/HDL Ratio ABX Reporting Has patient been on IV antibiotics over the past 48 hours?: Yes Sepsis Event Note (H) - Evaluation Current Stage of Sepsis: Sepsis Possible source of Sepsis: positive: Genitourinary - Sepsis Criteria Sepsis Criteria: Recorded Temperature greater than 38.3C or Less than 36C, Recorded Heart Rate greater than 90 bpm, WBC count greater than 10% bands, WBC count greater than 12,000 or less than 4000, Renal: urine output less than 0.5ml/kg/hr for 2 hours or creatinine gr, Metabolic: lactate > 2 mmol/L, Hepatic: Bilirubin greater than 2mg/dl Assessment/Plan - Problem List (1) Pyelonephritis Impression: 1) Sepsis with Pyelonephristis Bilateral pt initially present sepsis with pyelonephristis. Now pt is stable. Positive Ecoli in UA and blood stream infection. Ecoli is sensitive to Rocephin continue Rocephin. Since pt's GFR is only 14, reduce Rocephin to 1 gram per day and reduce any hepatic toxical (2) icterus sclera pt has elevated total bili from 2 at admission to now 3.8. Also pt has elevated Alk and GGT. pt has hx of long time alcoholism, and liver cirrhosis. hold hepatic toxical agents order MRCP, the result is pending advise pt followup recruit instructor/GI speciality as out-pt (3) Leukocytosis; WBC is slight reduced to 22.8 from 23.8. etiology is likely from new onset of C.diff infection, and bacteremia continue oral vancomycin continue IV of rocephin daily lab monitor (4) E.Coli bacteremia blood cultures in both tubes revealed positive for Ecoli, consistent with urine culture. Sepsis resolved as above Continue ceftriaxone, As above afebrile, and CT (noncontrast) dont suspect abscess (5)JEFFY (vs acute on chronic; improved and stable, creatinine is 3.5 today continue appreciate hydration, precaution of pt's small Asites. continue lab monitor advise pt followup senior microstrategy developer as out-pt (6) new afib pt also has new onset of Afib. HR is controlled and stable by beta-juliano. CHADS score was 3.2% per year for stroke risk. Discussed with pt about the risk and benefits. But pt has lower plt, hepatic failure, renal failure, it seems bleeding risk is higher then the benefits. pt understood and will followup antisqueak worker as out-pt. pt understood. (7) Cirrhosis; hx alcohol use/ no prior diagnosis cirrhosis Nodular on liver on CT pt report she had long hx of ETOH abuse and she state she stop alcohol drinking pt has elevated total bili, and Alk and GGT, MRSP was ordered and is pending now (8) Hyponatremia RESOLVED (9)Thombocytopeina Suspect chronically low platelets with early cirrhosis, it is improving 89K today hold blood thinner now, daily lab monitor (10) Type 2 diabetes mellitus Conclusion/Plan: metformin at home. because pt's hepatic failure and renal failure, pt is advised to hold Metformin and advise pt start to have insulin nurse educate pt how to use insulin and hypoglycemia prevention (11) Hypertension Conclusion/Plan: stable, hole Lisinopril on hold given JEFFY Was started on metoprolol as above for rate control continue home CPAP will also help control (12) SEGUN continue home CPAP (13) Hyperlipidemia Conclusion/Plan: On simvastatin at home. Resume statin (14) Hyperkalemia resolved (15) diarrhea with C.diff infection pt report it is better. continue oral vancomycin
--- NOTE | 2019-05-29 18:56 | MRI Report ---
Reason: elevated bili and alk, liver mass/failure Procedure Date: 05/29/2019 Accession Number: [id number] / [id number] Procedure: MRI - MRCP W/O CPT Code: FULL RESULT: EXAM: MR ABDOMEN WITHOUT CONTRAST (MR CHOLANGIOPANCREATOGRAPHY) EXAM DATE: 05/29/2019 03:30 PM. CLINICAL HISTORY: Elevated bilirubin and alkaline phosphatase. Liver failure. COMPARISON: None. TECHNIQUE: Multiplanar breath-hold T1 and T2 sequences obtained through the abdomen on an MR scanner. Dedicated 2D and 3D MRCP sequences obtained through the biliary and pancreatic ducts. No intravenous contrast given. FINDINGS: Lung Bases: The lung bases are clear. Liver: Nodular cirrhotic liver is seen measuring up to 18.1 cm in length. No discrete lesion or masses definitively seen on noncontrast imaging. There is no intrahepatic biliary dilatation. CBD: The extrahepatic ducts appear normal. The CBD is 3-4 mm in diameter. Gallbladder: The gallbladder is partially distended and appears normal with no wall thickening or stone. Pancreas: The pancreas appears normal with no mass. The pancreatic duct measures 1-2 mm in diameter and appears normal with no stone or stricture. Spleen: The spleen appears normal. Kidneys and Adrenals: The visualized kidneys appear intact with no hydronephrosis. There are no cysts in the kidneys. The adrenals appear normal. Bowel: The visualized bowel loops are grossly unremarkable. Small volume ascites is seen primarily in the upper abdominal quadrants. Retroperitoneum: The retroperitoneal structures appear normal with no mass or lymphadenopathy. IMPRESSION: 1. No cholelithiasis, choledocholithiasis, or biliary dilation. 2. Nodular cirrhotic liver with small volume ascites in the upper abdomen region. RADIA
[2019-05-29] MEDS ORDERED: INSULIN NPH HUMAN 100 UNIT/1 ML 10 ML MDV SUBQ SCH (21:00)
[2019-05-29] MEDS: ATORVASTATIN 10 MG TABLET PO SCH (21:48)
[2019-05-30 06:08] LABS: BASOPHILS % (AUTO) 0.1 %; EOSINOPHILS # (AUTO) 0.1 10^3/uL (0.0-0.7); EOSINOPHILS % (AUTO) 0.5 %; HGB - HEMOGLOBIN 11.4 g/dL (12.0-16.0); LYMPHOCYTES % (AUTO) 4.5 %; MEAN CORPUSCULAR HGB CONC 34.5 g/dL (32.0-36.0); MEAN CORPUSCULAR VOLUME 95.7 fL (81.0-99.0); MEAN PLATELET VOLUME 12.2 fL (7.9-10.8); MONOCYTES # (AUTO) 0.7 10^3/uL (0.0-1.0); MONOCYTES % (AUTO) 3.1 %; NEUTROPHILS # (AUTO) 19.5 10^3/uL (1.5-6.6); NEUTROPHILS % (AUTO) 90.2 %; PLT - PLATELET COUNT 142 10^3/uL (130-450); RED BLOOD COUNT 3.45 10^6/uL (4.20-5.40); RED CELL DISTRIBUTION WIDTH 16.3 % (12.0-15.0); WHITE BLOOD COUNT 21.6 x10^3/uL (4.8-10.8)
[2019-05-30 06:20] LABS: ALBUMIN 1.9 g/dL (3.2-5.5); ALBUMIN/GLOBULIN RATIO 0.4 (1.0-2.2); BILIRUBIN,TOTAL 3.2 mg/dL (0.2-1.0); CALCIUM 8.1 mg/dL (8.5-10.3); CREATININE 3.2 mg/dL (0.4-1.0); TOTAL PROTEIN 6.2 g/dL (6.7-8.2)
[2019-05-30 08:14] VITALS: BP 134/81
[2019-05-30] MEDS: INSULIN ASPART 300 UNIT/3 ML PEN SUBQ SCH (08:35)
[2019-05-30] MEDS: METOPROLOL TARTRATE 50 MG TABLET PO SCH (09:07)
[2019-05-30] MEDS: VANCOMYCIN 125 MG CAPSULE PO SCH (09:08)
[2019-05-30] MEDS: POLYETHYLENE GLYCOL 3350 17 GM PACKET PO SCH (09:11)
[2019-05-30] MEDS: SENNA 8.6 MG TABLET PO SCH (09:11)
[2019-05-30] MEDS: SODIUM CHLORIDE FLUSH 0.9% 10 ML SYRINGE IVP SCH (09:12)
[2019-05-30] MEDS: SODIUM CHLORIDE 0.9% 1,000 ML IV SCH (09:12)
--- NOTE | 2019-05-30 10:22 | Discharge Plan ---
Discharge Plan Problem Reviewed?: Yes Disposition: Home, Self Care Condition: Poor Prescriptions: cefUROXime axetil [Ceftin] 250 mg PO Q12H #10 tablet Metoprolol Tartrate [Lopressor] 50 mg PO BID #20 tablet Vancomycin [Vancocin] 125 mg PO QID #40 capsule Diet: Diabetic Activity Restrictions: Activity as Tolerated Shower Restrictions: No (fall precaution) Instruction Topics: Vancomycin capsules, Isophane Insulin NPH injection, Hypoglycemia, Blood Sugar Check, Insulin Injected, Diabetes Carbs, UTI, Kidney Disease Chronic Dc, Cirrhosis Liver Dc, Injection Pens Dc, Clostridium Difficile Infec, Hypoglycemia Steps, ED Bacteremia Rule Out, ED Cirrhosis Liver, Pyelonephritis Dc Health Concerns: pyelonephristis and bacteremia, C.diff infection, liver cirrhosis, chronic renal disease, DM2 with insulin management Plan of Treatment: you is prescribed Ceftin to finish the treatment course for pyelonephristis and bacteremia, oral vancomycin to finish the treatment course for C.Diff infection, cessation of alcohol and followup closely with mimeographer/official greeter for monitor of your liver cirrhosis, remain hydration and followup industrial sweeper cleaner closely monitor for chronic kidney disease, hold the Metformin and followup nurse instruction to start insulin for management of your diabetes. Care Goals: stabilization of your multiple complex medical problems. Assessment: assessment as the above Additional Instructions or Follow Up instructions: you may followup your PCP in one week, may followup mimeographer/official greeter and industrial sweeper cleaner closely as out-pt. Should your symptoms return or worsen, you may present ER, call 911 or your PCP for help. No Smoking: If you smoke, Please STOP! Call for help. Follow-up with: Keri Ochoa PA-C [Primary Care Provider] -
--- NOTE | 2019-05-30 11:01 | DISCHARGE SUMMARY ---
Discharge Summary Discharge Date: 05/30/19 Discharging Provider: FERRER Primary Care Provider: Dr. Linh Ochoa Condition at Discharge: Poor Discharge Disposition: 01 Home, Self Care Discharge Facility Name: home - DIAGNOSES Admission Diagnoses: 1) Sepsis (2) Pyelonephritis (3) Type 2 diabetes mellitus (4) Nausea (5) Acute renal failure (6) SEGUN on CPAP (7) Hyperlipidemia Discharge Diagnoses with Status of Each Condition: 1) Sepsis with Pyelonephristis Bilateral pt initially present sepsis with pyelonephristis. Now pt is stable. Positive Ecoli in UA and blood stream infection. (2) icterus sclera total bili is reduced today, and stable, followup transmitter engineer in charge/GI specialist. discussed with pt and her family about MRCP result of 18.1 cm cirrhosis in the liver. pt state she will never have alcohol abuse again. (3) Leukocytosis; WBC continuing reduced. Pt has no more fever, chill. pt is prescribed Ceftin for bacteremia, and oral vancomycin for C.diff infection. (4) E.Coli bacteremia stable, pt is prescribed Ceftin for bacteremia for continuing the treatment course. (5)JEFFY (vs acute on chronic; continue improved. pt is advised to followup pen maker and keep hydration. (6) new afib HR stable. pt is prescribed Metoprolol. No blood thinner is prescribed for pt now due to hepatic and renal failure, and lower Plt level. discussed with pt and advised to followup brim blocker as the out-pt (7) Cirrhosis with hx alcohol abuse stable. discussed with pt about MRCP and CT result. pt state she will never have alcohol abuse again. pt is advised to followup transmitter engineer in charge/GI specialist (8) Hyponatremia RESOLVED (9)Thombocytopeina better and stable. advise followup PCP and GI speciality (10) Type 2 diabetes mellitus Conclusion/Plan: stable and controlled glucose level. because pt's hepatic failure and renal failure, pt is advised to hold Metformin and advise pt start to have insulin nurse educate pt how to use insulin and hypoglycemia prevention (11) Hypertension stable, hole Lisinopril on hold given JEFFY pt is prescribed for metoprolol (12) SEGUN stable, continue home CPAP (13) Hyperlipidemia Resume lower dosage of statin, advise pt followup PCP to discuss for possible stop due to hepatic side effect (14) Hyperkalemia resolved (15) diarrhea with C.diff infection stable, continue oral vancomycin - [facility] History of Present Illness: refer from Ms. Maldonado and Ata's HPI on 05/24/19 Mrs. Bose was in her usual state of health until evening when she began to feel weak, "shaky", nauseated and had vomiting. She has had minimal PO intake since late on and is very dehydrated. She came to the ED last night and was sent home with PO zofran for the nausea which she reports did not help at all. She has not had a BM in 3-4 days and urine output is very low volume and brown in color, though she has the sensation that she needs to urinate. She denies any pain and has NO CVA tenderness or suprapubic pain on assessment. She has a PMH of SEGUN w/ CPAP, DMT2, HTN, and HLD for which she is on metformin, lisinopril and simvastatin. CT abdomen/pelvis shows mild hydronephrosis, negative for stones, but concerning for pyelonephritis. (Augusto Berumen) I personally examined the patient with the nurse practitioner student and agree with her findings. (Lila Sarmiento) - HOSPITAL COURSE Hospital Course: pt was admitted for sepsis with bilateral pyelonephristis, bacteremia with culture revealed Ecoli infection, then pt was found to have renal failure and hepatic failure, and new onset of afib. pt was treated with antibiotics according to sensitivity study Rocephin, also pt was treated with IVF of NS. pt also developed C.Diff infection. CT and MRCP reveals pt has cirrhosis liver with size of 18.1 cm. Afib with RVR was controlled Metoprolol. after treatment, pt has no fever, chill, WBC is steadily reduced. Pt's creatinine is reduced and stable. pt is advised to followup pen maker, GI specialist/transmitter engineer in charge. pt was not prescribed blood thinner for her new onset of Afib due to her low Plt level, and hepatic and renal failure. pt is advised to followup brim blocker as well. pt is prescribed Ceftin and Vancomycin for her bacteremia and C.diff treatment course. - ALLERGIES Allergies/Adverse Reactions: Allergies Allergy/AdvReac Type Severity Reaction Status Date / Time cephalexin Allergy Unknown Verified 05/25/19 14:54 Penicillins AdvReac Intermediate Nausea Verified 05/24/19 11:43 - MEDICATIONS Home Medications: Ambulatory Orders Medication Instructions Recorded Confirmed Simvastatin 20 mg PO QPM 05/23/19 05/27/19 Insulin NPH Human [NovoLIN N] 8 unit SUBQ QPM ml 05/30/19 Metoprolol Tartrate [Lopressor] 50 mg PO BID #20 tablet 05/30/19 Vancomycin [Vancocin] 125 mg PO QID #40 capsule 05/30/19 cefUROXime axetil [Ceftin] 250 mg PO Q12H #10 tablet 05/30/19 - PHYSICAL EXAM AT DISCHARGE General Appearance: positive: No acute distress, Alert. negative: Lethargic Eyes Bilateral: positive: Normal inspection, PERRL, No lid inflammation, Conjunctivae nml ENT: positive: ENT inspection nml, Pharynx nml, No signs of dehydration. negative: Purulent nasal drainage, Pharyngeal erythema, Oral lesions Neck: positive: Nml inspection, Thyroid nml, No JVD, Trachea midline. negative: Thyromegaly, Lymphadenopathy (R), Lymphadenopathy (L), Stiff neck, Swelling/bruising, Tracheal deviation Respiratory: positive: Chest non-tender, No respiratory distress, Breath sounds nml. negative: Wheezes, Rales, Rhonchi Cardiovascular: positive: Regular rate & rhythm, No murmur, No gallop. negative: Irregularly irregular, Extrasystoles, Tachycardia, Bradycardia, JVD present, Systolic murmur, Diastolic murmur Peripheral Pulses: positive: 2+ Abdomen: positive: Non-tender, No organomegaly, Nml bowel sounds, No distention. negative: Tenderness, Guarding, Rebound Back: positive: Nml inspection. negative: CVA tenderness (R), CVA tenderness (L) Skin: positive: Color nml, No rash, Warm, Dry. negative: Cyanosis, Diaphoresis, Pallor Extremities: positive: Non-tender, Full ROM, Nml appearance. negative: Calf tenderness, Joint swelling, Enid's sign/cords Neurologic/Psychiatric: positive: Oriented x3, Motor nml, Sensation nml, Mood/affect nml. negative: Weakness, Sensory loss, Facial droop, Slurred/abnml speech, Depressed mood/affect - LABS Result Diagrams: 05/30/19 05:58 05/30/19 05:58 - SEPSIS Current Stage of Sepsis: Sepsis Possible source of Sepsis: Genitourinary Sepsis Criteria: Recorded Temperature greater than 38.3C or Less than 36C, Recorded Heart Rate greater than 90 bpm, WBC count greater than 10% bands, WBC count greater than 12,000 or less than 4000, Renal: urine output less than 0.5ml/kg/hr for 2 hours or creatinine gr, Metabolic: lactate > 2 mmol/L, Hepatic: Bilirubin greater than 2mg/dl - FOLLOW UP Follow Up: you may followup your PCP in one week, may followup netbackup admin/transmitter engineer in charge and pen maker closely as out-pt. pt may followup brim blocker as needed. Should your symptoms return or worsen, you may present ER, call 911 or your PCP for help. - TIME SPENT Time Spent in Discharge (Minutes): 60
== END 2019-05-30 12:17 | disposition home or self-care (01) | DRG 872 ==
LOC: ED 11:32 → MS2 13:41
PROVIDERS: ADMIT Nurse Practitioner; ATTEND Nurse Practitioner Gerontology
DX: A41.51 Sepsis due to Escherichia coli [E. coli] (principal); N12 Tubulo-interstitial nephritis, not specified as acute or chronic; N17.9 Acute kidney failure, unspecified; E87.1 Hypo-osmolality and hyponatremia; A04.72 Enterocolitis due to Clostridium difficile, not specified as recurrent; K70.31 Alcoholic cirrhosis of liver with ascites; F10.10 Alcohol abuse, uncomplicated; I12.9 Hypertensive chronic kidney disease with stage 1 through stage 4 chronic kidney disease, or unspecified chronic kidney disease; E11.22 Type 2 diabetes mellitus with diabetic chronic kidney disease; N18.9 Chronic kidney disease, unspecified; K72.90 Hepatic failure, unspecified without coma; I48.91 Unspecified atrial fibrillation; E11.65 Type 2 diabetes mellitus with hyperglycemia; D69.6 Thrombocytopenia, unspecified; G47.33 Obstructive sleep apnea (adult) (pediatric); F17.210 Nicotine dependence, cigarettes, uncomplicated; E78.2 Mixed hyperlipidemia; E87.5 Hyperkalemia; E86.0 Dehydration; H54.7 Unspecified visual loss; E83.42 Hypomagnesemia; H15.89 Other disorders of sclera; Z79.84 Long term (current) use of oral hypoglycemic drugs
CPT/HCPCS: 36415; 71046; 74176; 74181; 78582; 80048; 80053; 80061; 80076; 80306; 81001; 82140; 82248; 82272; 82550; 82977; 83036; 83605; 83690; 83735; 84100; 84443; 84484; 85025; 85027; 85384; 85610; 85730; 87040; 87077; 87086; 87181; 87493; 93005; 93306; 93970; 96361; 96374; 97161; 99285; A9270; J1815; J7040; J8499; 81003; 83721

== ENCOUNTER 2019-06-03 08:00 | Outpatient (CLI) | payer OTHER ==
[2019-06-03 18:46] LABS: BASOPHILS # (AUTO) 0.1 10^3/uL (0.0-0.1); BASOPHILS % (AUTO) 0.5 %; EOSINOPHILS # (AUTO) 0.1 10^3/uL (0.0-0.7); EOSINOPHILS % (AUTO) 0.4 %; HGB - HEMOGLOBIN 9.7 g/dL (12.0-16.0); LYMPHOCYTES # (AUTO) 1.3 10^3/uL (1.5-3.5); LYMPHOCYTES % (AUTO) 8.1 %; MEAN CORPUSCULAR HGB CONC 31.8 g/dL (32.0-36.0); MEAN CORPUSCULAR VOLUME 103.7 fL (81.0-99.0); MEAN PLATELET VOLUME 11.7 fL (7.9-10.8); MONOCYTES # (AUTO) 0.8 10^3/uL (0.0-1.0); MONOCYTES % (AUTO) 5.2 %; NEUTROPHILS # (AUTO) 13.8 10^3/uL (1.5-6.6); PLT - PLATELET COUNT 252 10^3/uL (130-450); RED BLOOD COUNT 2.94 10^6/uL (4.20-5.40); RED CELL DISTRIBUTION WIDTH 16.5 % (12.0-15.0); WHITE BLOOD COUNT 16.2 x10^3/uL (4.8-10.8)
[2019-06-03 19:19] LABS: ALBUMIN 2.4 g/dL (3.2-5.5); ALBUMIN/GLOBULIN RATIO 0.4 (1.0-2.2); BILIRUBIN,TOTAL 2.2 mg/dL (0.2-1.0); TOTAL PROTEIN 7.8 g/dL (6.7-8.2)
[2019-06-03 19:21] LABS: PLATELET ESTIMATE, MANUAL NORMAL (130-450,000) (NORMAL); PLATELET MORPHOLOGY NORMAL APPEARANCE (NORMAL)
[2019-06-03 19:28] LABS: CALCIUM 8.5 mg/dL (8.5-10.3)
== END 2019-06-03 08:01 | disposition home or self-care (01) ==
LOC: LAB.WCP 08:00
PROVIDERS: ATTEND Physician Assistant Medical
DX: K74.60 Unspecified cirrhosis of liver (principal); D72.829 Elevated white blood cell count, unspecified
CPT/HCPCS: 36415; 80053; 85025

== ENCOUNTER 2019-06-10 17:40 | Outpatient (CLI) | payer OTHER ==
[2019-06-10 18:01] LABS: BASOPHILS # (AUTO) 0.1 10^3/uL (0.0-0.1); BASOPHILS % (AUTO) 0.9 %; EOSINOPHILS # (AUTO) 0.2 10^3/uL (0.0-0.7); EOSINOPHILS % (AUTO) 1.8 %; HGB - HEMOGLOBIN 8.9 g/dL (12.0-16.0); LYMPHOCYTES % (AUTO) 21.3 %; MEAN CORPUSCULAR HEMOGLOBIN 32.4 pg (27.0-31.0); MEAN CORPUSCULAR HGB CONC 31.8 g/dL (32.0-36.0); MEAN CORPUSCULAR VOLUME 101.8 fL (81.0-99.0); MEAN PLATELET VOLUME 10.2 fL (7.9-10.8); MONOCYTES # (AUTO) 0.9 10^3/uL (0.0-1.0); MONOCYTES % (AUTO) 9.4 %; NEUTROPHILS # (AUTO) 6.3 10^3/uL (1.5-6.6); NEUTROPHILS % (AUTO) 66.1 %; PLT - PLATELET COUNT 250 10^3/uL (130-450); RED BLOOD COUNT 2.75 10^6/uL (4.20-5.40); RED CELL DISTRIBUTION WIDTH 14.3 % (12.0-15.0); WHITE BLOOD COUNT 9.5 x10^3/uL (4.8-10.8)
[2019-06-10 18:09] LABS: BILIRUBIN,URINE NEGATIVE (NEGATIVE); CLARITY,URINE CLEAR (CLEAR); GLUCOSE, URINE (UA) NEGATIVE (NEGATIVE); KETONES,URINE (UA) NEGATIVE (NEGATIVE); LEUKOCYTE ESTERASE, URINE MODERATE (NEGATIVE); NITRITE,URINE NEGATIVE (NEGATIVE); OCCULT BLOOD,URINE MODERATE (NEGATIVE); PH,URINE 6.5 PH (5.0-7.5); PROTEIN,URINE TRACE mg/dL (NEGATIVE); UROBILINOGEN,URINE 0.2 (NORMAL) E.U./dL (NORMAL)
[2019-06-10 18:14] LABS: ALBUMIN/GLOBULIN RATIO 0.5 (1.0-2.2); BILIRUBIN,TOTAL 1.3 mg/dL (0.2-1.0); CALCIUM 9.1 mg/dL (8.5-10.3); CREATININE 1.5 mg/dL (0.4-1.0); TOTAL PROTEIN 9.6 g/dL (6.7-8.2)
[2019-06-10 18:23] LABS: BACTERIA,URINE None Seen /HPF (None Seen); RBC,URINE 0-5 /HPF (0-5); SQUAMOUS EPITHELIAL CELL,UR RARE Squamous (<= Few); WBC CLUMPS,URINE PRESENT
== END 2019-06-10 17:41 | disposition home or self-care (01) ==
LOC: LAB 17:40
PROVIDERS: ATTEND Physician Assistant Medical
DX: A41.9 Sepsis, unspecified organism (principal)
CPT/HCPCS: 36415; 80053; 81001; 81003; 85025; 87040; 87086

== ENCOUNTER 2019-06-15 13:24 | Outpatient (CLI) | payer OTHER ==
[2019-06-15 14:04] LABS: % IRON SATURATION 18 % (20-50); IRON 49 ug/dL (28-170); TOTAL IRON BINDING CAPACITY 273 ug/dL (250-450); TRANSFERRIN 195 mg/dL (192-382)
[2019-06-15 14:16] LABS: FERRITIN 421.7 ng/mL (11.0-306.8)
[2019-06-15 14:19] LABS: FOLATE 9.53 ng/mL (5.90 - >24.8)
== END 2019-06-15 13:25 | disposition home or self-care (01) ==
LOC: LAB 13:24
PROVIDERS: ATTEND Physician Assistant Medical
DX: D64.9 Anemia, unspecified (principal)
CPT/HCPCS: 36415; 82607; 82728; 82746; 83540; 84466

== ENCOUNTER 2019-07-17 09:49 | Outpatient (CLI) | payer OTHER ==
[2019-07-17 10:24] LABS: CREATININE,URINE 73.7 mg/dL; PROTEIN/CREATININE RATIO,URINE 0.1 (<=0.2)
== END 2019-07-17 09:50 | disposition home or self-care (01) ==
LOC: LAB 09:49
PROVIDERS: ATTEND Internal Medicine Nephrology
DX: R80.9 Proteinuria, unspecified (principal)
CPT/HCPCS: 82570; 84156

== ENCOUNTER 2019-08-12 07:49 | Outpatient (CLI) | payer OTHER ==
[2019-08-12 09:06] LABS: BASOPHILS # (AUTO) 0.1 10^3/uL (0.0-0.1); BASOPHILS % (AUTO) 1.1 %; EOSINOPHILS # (AUTO) 0.3 10^3/uL (0.0-0.7); EOSINOPHILS % (AUTO) 3.1 %; HGB - HEMOGLOBIN 11.2 g/dL (12.0-16.0); LYMPHOCYTES # (AUTO) 2.5 10^3/uL (1.5-3.5); LYMPHOCYTES % (AUTO) 26.4 %; MEAN CORPUSCULAR HEMOGLOBIN 30.9 pg (27.0-31.0); MEAN CORPUSCULAR HGB CONC 33.2 g/dL (32.0-36.0); MEAN CORPUSCULAR VOLUME 93.1 fL (81.0-99.0); MEAN PLATELET VOLUME 10.6 fL (7.9-10.8); MONOCYTES # (AUTO) 1.1 10^3/uL (0.0-1.0); MONOCYTES % (AUTO) 11.8 %; NEUTROPHILS # (AUTO) 5.3 10^3/uL (1.5-6.6); NEUTROPHILS % (AUTO) 56.7 %; PLT - PLATELET COUNT 288 10^3/uL (130-450); RED BLOOD COUNT 3.62 10^6/uL (4.20-5.40); RED CELL DISTRIBUTION WIDTH 12.9 % (12.0-15.0); WHITE BLOOD COUNT 9.3 x10^3/uL (4.8-10.8)
[2019-08-12 09:51] LABS: % IRON SATURATION 24 % (20-50); IRON 70 ug/dL (28-170); TOTAL IRON BINDING CAPACITY 291 ug/dL (250-450); TRANSFERRIN 208 mg/dL (192-382)
--- NOTE | 2019-08-13 09:54 | Ultrasound Report ---
Reason: CIRRHOSIS OF LIVER Procedure Date: 08/12/2019 Accession Number: [id number] / [id number] Procedure: US - Abdomen Limited CPT Code: FULL RESULT: EXAM: ABDOMEN ULTRASOUND LIMITED, RUQ EXAM DATE: 08/12/2019 08:26 AM. CLINICAL HISTORY: Alcoholic cirrhosis, follow-up. COMPARISON: Abdominal pelvic CT 05/27/2019. MRCP 05/29/2019. TECHNIQUE: Real-time scanning was performed with static images obtained. FINDINGS: Liver: Liver parenchyma is heterogeneous with mild diffuse surface nodularity. No focal masses, enlargement or abnormal blood flow. 19.0 cm. Main portal vein flow: Hepatopetal. Gallbladder: Normal. No stones, wall thickening, or sonographic Todd's sign. Biliary System: CBD measures 4 mm. No intrahepatic or extrahepatic ductal dilatation. Other: The right kidney measured 11.7 cm. A lower pole cyst measures 0.9 cm. No calculi or hydronephrosis evident. Small volume ascites seen on prior exams have resolved. IMPRESSION: 1. Sonographic evidence of liver cirrhosis. 2. No focal liver mass lesion. 3. Normal gallbladder. 4. Resolution of ascites. RADIA
== END 2019-08-12 07:50 | disposition home or self-care (01) ==
LOC: DI 07:49
PROVIDERS: ATTEND Physician Assistant
DX: K70.30 Alcoholic cirrhosis of liver without ascites (principal); D64.9 Anemia, unspecified
CPT/HCPCS: 36415; 76705; 82728; 83540; 84466; 85025

== ENCOUNTER 2019-08-12 07:50 | Outpatient (CLI) | payer OTHER ==
--- NOTE | 2019-08-13 08:19 | XRAY Report ---
Reason: LUMBAR RADICULOPATHY Procedure Date: 08/12/2019 Accession Number: [id number] / [id number] Procedure: XR - Lumbar Spine 2 View CPT Code: FULL RESULT: EXAM: LUMBOSACRAL SPINE RADIOGRAPHY EXAM DATE: 08/12/2019 08:31 AM. CLINICAL HISTORY: Lumbar radiculopathy. COMPARISONS: None. TECHNIQUE: 2 views. FINDINGS: Alignment: 5 mm anterolisthesis of L4 on L5. Slight retrolisthesis of L5 on S1. Slight degenerative anterolisthesis of L3 on L4. Minimal rightward convex asymmetric lumbar curve. Bones: Lumbar vertebral body heights are maintained. No evidence for acute fracture or focal bone destruction. Minimal to mild chronic anterior vertebral body degenerative marginal spurring, most prominent at L3-L4. Mild chronic L2 vertebral body superior endplate concave compression deformity. Probable chronic degenerative Schmorl's node of the L1 superior endplate. Disks: Negligible intervertebral disk space narrowing. Facets: Moderately prominent facet arthropathy at L4-L5. Mild facet arthropathy at L3-L4 and L5-S1. Sacroiliac Joints: Grossly unremarkable radiographically. Soft Tissues: No evidence for bowel obstruction. Mild aortic atherosclerotic calcification. IMPRESSION: No evidence of acute fracture. Multilevel mid and lower lumbar degenerative changes and malalignment are present. For additional evaluation of lumbar radiculopathy, consider CT or MRI. RADIA
== END 2019-08-12 07:51 | disposition home or self-care (01) ==
LOC: DI 07:50
PROVIDERS: ATTEND Physician Assistant Medical
DX: M47.816 Spondylosis without myelopathy or radiculopathy, lumbar region (principal); M47.817 Spondylosis without myelopathy or radiculopathy, lumbosacral region; K70.30 Alcoholic cirrhosis of liver without ascites; D64.9 Anemia, unspecified; M43.16 Spondylolisthesis, lumbar region; M43.8X6 Other specified deforming dorsopathies, lumbar region
CPT/HCPCS: 36415; 72100; 76705; 82728; 83540; 84466; 85025

== ENCOUNTER 2019-08-27 09:16 | Outpatient (CLI) | payer OTHER ==
[2019-08-27 09:58] LABS: CHOL/HDL RATIO 5.7 (<4.4); CHOLESTEROL 229 mg/dL; HDL CHOLESTEROL 40 mg/dL; LDL CHOLESTEROL,CALCULATED 156 mg/dL; LDL/HDL RATIO 3.9 (<4.4); VLDL CHOLESTEROL 33 mg/dL
== END 2019-08-27 09:17 | disposition home or self-care (01) ==
LOC: LAB 09:16
PROVIDERS: ATTEND Internal Medicine Cardiovascular Disease
DX: I48.91 Unspecified atrial fibrillation (principal); E78.5 Hyperlipidemia, unspecified
CPT/HCPCS: 36415; 80061; 83721; 84443

== ENCOUNTER 2019-09-01 14:14 | Outpatient (CLI) | payer OTHER ==
--- NOTE | 2019-09-01 16:44 | SLEEP CARE CONSULTATION ---
Information from patient questionnaire entered by Tere Granados. I have reviewed and concur with the information entered by Tere Granados. This document represents the service I personally performed and the decisions made by me, Marlys Albert MD, [facility]. History of Present Illness Reason for Visit: New patient, Previously diagnosed sleep apnea, sleep apnea on CPAP therapy Chief Complaint: reports: Insomnia, Unrefreshed sleep, Snoring, Excessive daytime sleepiness, Observed pauses in breathing, Fatigue, Frequent awakenings at night Duration of Symptoms: May 2019 Usual bedtime: [id number] Time it takes to fall asleep: less than 5 minutes Snores at night: No Observed to quit breathing while asleep: Yes Sleeps alone due to snoring: No Number of times waking at night: 2-3 Reasons for waking at night: reports: Bathroom Toss, Turn, or Twitch while sleeping: Yes Recalls having dreams: Yes Usually gets out of bed at: various Feels refreshed in the morning: No Morning headache: No Sleepy or fatigued during the day: Yes Ever fallen asleep while driving: No Takes day naps: Yes Dreams during day naps: Yes Prior sleep studies: Yes Year and Where: 2002 [place] Additional HPI information: I had the pleasure of seeing Ms. Bose today regarding obstructive sleep apnea-hypopnea. As you know, she is a 54 year old lady who was diagnosed with the sleep-disordered breathing at [facility] in 2002. The sleep study report is not available. She was prescribed a CPAP device which she used regularly. Her current machine is a Respironics REMstar System One that belongs to her late father. 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 The data displayed on the device show average usage of 7.6 hours a night. The pressure is set on 13 cmH2O . The residual AHI is 6.6. Average time in large leak per day 17%. She wears a Respironics Comfort Gel nasal mask. She gets his supplies from [employer]. She finds the treatment beneficial. She gained 20 30 lbs since the diagnosis. Subjective Initial [place] Sleepiness Scale score: 19 Past Medical History Past Medical History: reports: Diabetes, Arthritis, Anemia, Depression, Mood disorder Social History The patient's occupation is a [employer]. Patient is and lives in [place]. Have you smoked in the past 12 months: Yes Cigarettes per day (20/pack): 10 Years of smokin Quit date: 05/2019 Smoking Pack Years: 15.0 Alcohol use: No Caffeine use: No Family History Family history of sleep disordered breathing: No Allergies and Home Medications Drug allergies reviewed: Yes Home medication list reviewed: Yes Review of Systems Weight gain over past 5 years: 20-30 Cardiovascular: reports: irregular heart rate or pulse Respiratory: denies: shortness of breath, wheeze, sputum production, chronic cough, other Gastrointestinal: denies: heartburn, difficulty swallowing, nausea, vomitting, diarrhea, abdominal pain, other Urinary: denies: incontinence, frequency, urgency, impotence, other Neurological: denies: headaches, seizure, head trauma, disorientation, speech dysfunction, gait or balance problems, fainting or unconsciousness, other Psychiatric: reports: depression Ear/Nose/Throat: reports: dry mouth/throat Endocrine: reports: sluggishness Musculoskeletal: reports: muscle pain or cramping Immunologic: denies: sneezing, rash, itching, allergies to food or environment, other Physical Exam Vital signs obtained and entered by: Dr. Albert Blood Pressure: 130/69 Cuff size: regular Heart Rate: 50 O2 Saturation: 99 Height: 5 ft 1 in Weight: 170 lb Body Mass Index: 32.1 BMI Classification: Obesity Class 1 Neck circumference: 18 Mood/affect: normal HEENT: No craniofacial malformation Nostrils: patent to airflow Turbinates: normal Septum: midline Mouth and throat: narrow oropharynx Soft palate: long Hard palate: normal Uvula: normal Uvula visualization: 25% Mallampati Class III Tongue: normal in size Tonsils: small Chin and jaw: normal size and position Neck: normal w/o lymphadenopathy or thyromegaly Heart: regular rate and rhythm (bradycardic) Lungs: clear bilaterally Abdomen: soft, non-tender Extremities: no edema or clubbing Neurologic: intact, no focal deficits Impression and Plan IMPRESSION: 1. Obstructive Sleep Apnea-Hypopnea Syndrome, as previously diagnosed. The severity is unknown. The patient has good CPAP compliance. The current pressure setting appears comfortable but slightly ineffective (residual AHI of 6.6). Narrow oropharynx and obesity are common predisposing factors for obstructive sleep apnea-hypopnea syndrome. Because her sleep study from 2002 is no longer retrievable, we will perform a new one to confirm the diagnosis and its severity. Plan: 1. Schedule polysomnography + manual CPAP titration study. The patient was instructed to not use her CPAP one night prior to the diagnostic sleep study. 2. Attempt to lose weight. 3. Return for follow up after the sleep studies. I spent 100% of this 20 minute visit face to face with the patient with greater than 50% of this was spent time counseling the patient and coordination of care.
[2019-09-01 16:45] VITALS: BP 130/69
== END 2019-09-01 14:15 | disposition home or self-care (01) ==
LOC: SC 14:14
PROVIDERS: ATTEND Internal Medicine Pulmonary Disease
DX: G47.33 Obstructive sleep apnea (adult) (pediatric) (principal)
CPT/HCPCS: 99203; 99212

== ENCOUNTER 2019-09-03 16:36 | Outpatient (CLI) | payer OTHER ==
[2019-09-03 17:10] LABS: HB2 TOTAL 11.8 g/dL; HEMOGLOBIN A1C 0.64 g/dL; HEMOGLOBIN A1C % 7.1 % (4.6-6.2)
== END 2019-09-03 16:37 | disposition home or self-care (01) ==
LOC: LAB 16:36
PROVIDERS: ATTEND Physician Assistant Medical
DX: E11.9 Type 2 diabetes mellitus without complications (principal)
CPT/HCPCS: 36415; 83036

== ENCOUNTER 2019-09-29 20:34 | Outpatient (CLI) | payer OTHER | END 2019-09-29 20:35 | disposition home or self-care (01) | LOC: SC 20:34 | PROVIDERS: ATTEND Internal Medicine Pulmonary Disease | DX: G47.33 Obstructive sleep apnea (adult) (pediatric) (principal); G47.61 Periodic limb movement disorder | CPT/HCPCS: 95810 ==

== ENCOUNTER 2019-10-03 22:45 | Emergency (ER) | payer OTHER ==
--- NOTE | 2019-10-03 23:29 | ED Physician Documentation ---
History of Present Illness - Stated complaint Stated Complaint: HIGH BP - Chief complaint Chief Complaint: General - History obtained from History obtained from: Patient - History of Present Illness Timing: How many weeks ago (1) Pain level max: 0 Pain level now: 0 Improved by: nothing Worsened by: no apparent exacerbating factors - Additonal information Additional information: c/o high blood pressure x 1 week, "can't get it under control" (per patient). Has h/o hypertension, was changed from Lisinopril to metoprolol in May (when inpatient in [facility]; Lisinopril was stopped due to JEFYF). approximately 1 week ago , blood pressure was noted to be high by her physical therapist (170s/90s); patient says the physical therapist recommended patient go to ED although patient says she did not have any symptoms. Patient then followed up with cardiology and was started on amlodipine 5mg (in addition to 50mg BID metoprolol), and she had her first dose of the amlodipine earlier today. Patient has been measuring her blood pressures with a cuff at home over past week, as well, and readings have mostly been 170s-180s/80s-90s, but tonight she says the cuff read 202/198. Except for "slight headaches" (per patient), she otherwise is asymptomatic regarding the high blood pressure; specifically, she denies severe headache, visual changes, shortness of breath, chest pain/discomfort, weakness, numbness. Review of Systems Eyes: reports: Reviewed and negative Cardiac: reports: Reviewed and negative Respiratory: reports: Reviewed and negative GI: reports: Reviewed and negative Musculoskeletal: reports: Reviewed and negative Neurologic: reports: Headache ("slight headaches" intermittently over past several days). denies: Generalized weakness, Focal weakness, Numbness, Confused, Altered mental status PD PAST MEDICAL HISTORY - Past Medical History Cardiovascular: Hypertension Respiratory: Sleep apnea, CPAP use (SEGUN) Neuro: None Endocrine/Autoimmune: Type 2 diabetes GI: None : None HEENT: Chronic vision loss (has glasses for reading) Psych: None Musculoskeletal: None Derm: None - Past Surgical History Past Surgical History: No - Present Medications Home Medications: Ambulatory Orders Medication Instructions Recorded Confirmed Simvastatin 20 mg PO QPM 05/23/19 05/27/19 Insulin NPH Human [NovoLIN N] 8 unit SUBQ QPM ml 05/30/19 Metoprolol Tartrate [Lopressor] 50 mg PO BID #20 tablet 05/30/19 Vancomycin [Vancocin] 125 mg PO QID #40 capsule 05/30/19 cefUROXime axetil [Ceftin] 250 mg PO Q12H #10 tablet 05/30/19 - Allergies Allergies/Adverse Reactions: Allergies Allergy/AdvReac Type Severity Reaction Status Date / Time cephalexin Allergy Unknown Verified 10/03/19 22:53 Penicillins AdvReac Intermediate Nausea Verified 10/03/19 22:53 - Social History Does the pt smoke?: Yes Smoking Status: Current every day smoker Does the pt drink ETOH?: No Does the pt have substance abuse?: No - POLST POLST Status: Full Code Results - Vitals Vitals: Oxygen O2 Source Room air PD MEDICAL DECISION MAKING - ED course Complexity details: reviewed old records, reviewed results, re-evaluated ijeoma alcantara, considered differential, d/w patient ED course: NAD during ED stay and remained asymptomatic ("slight headaches" intermittently over past several days but denies this during ED stay). Recent inpatient stay revealed both hepatic and renal pathology, limiting options for antihypertensive agents in ED. Given that she is asymptomatic, her blood pressure can be managed with medication adjustments in outpatient setting. Patient has f/u scheduled for Saturday (3 days from ED presentation), and she is comfortable with this plan and understands she needs to return to ED if she develops symptoms (these were reviewed with her, particularly emphasizing worsening headache, visual changes, chest pain/discomfort, shortness of breath, weakness, numbness, altered mental status). Given 0.2mg clonidine in ED with modest response in blood pressure readings; given 0.1mg clonidine and then discharged. Her systolic blood pressure did improve from 213 to 176, although diastolic blood pressure went from 85 to 91. Departure - Departure Disposition: Home, Self Care Clinical Impression: Hypertension Qualifiers: Hypertension type: essential hypertension Qualified Code(s): I10 - Essential (primary) hypertension Condition: Good Instructions: ED Hypertension Conf Out Of Control Follow-Up: Keri Ochoa PA-C [Primary Care Provider] - Forms: Activity restrictions Discharge Date/Time: 10/04/19 01:42
[2019-10-03] MEDS ORDERED: cloNIDine 0.1 MG TABLET PO STA (23:59)
[2019-10-04] MEDS ORDERED: cloNIDine 0.1 MG TABLET PO STA (01:25)
[2019-10-04 01:29] VITALS: BP 176/94
== END 2019-10-04 01:42 | disposition home or self-care (01) ==
LOC: ED 22:45
DX: I10 Essential (primary) hypertension (principal); E11.9 Type 2 diabetes mellitus without complications; Z79.4 Long term (current) use of insulin; F17.200 Nicotine dependence, unspecified, uncomplicated
CPT/HCPCS: 99282; 99283; A9270

== ENCOUNTER 2019-10-15 13:10 | Outpatient (CLI) | payer OTHER | END 2019-10-15 13:11 | disposition home or self-care (01) | LOC: CAM 13:10 | PROVIDERS: ATTEND Physician Assistant Medical | DX: M54.16 Radiculopathy, lumbar region (principal) | CPT/HCPCS: 97810; 97811 ==

== ENCOUNTER 2019-11-03 13:14 | Outpatient (CLI) | payer OTHER ==
--- NOTE | 2019-11-03 13:50 | SLEEP CARE CONSULTATION ---
Information from patient questionnaire entered by Gerda Berumen. I have reviewed and concur with the information entered by Gerda Berumen. This document represents the service I personally performed and the decisions made by me, Marlys Albert MD, [facility]. History of Present Illness Initial [place] Sleepiness Scale score: 19 Current [place] Sleepiness Scale score: 7 Additional HPI information: HPI: Ms. Bose returned for follow up of the sleep study she had on 09/29/2019. The polysomnography showed that the patient had reduced sleep efficiency due to frequent awakenings after the sleep onset. The sleep architecture was abnormal for sleep fragmentation and reduced amount of time spent in REM and slow wave sleep (N3). Respiratory monitoring showed moderate obstructive sleep apnea-hypopnea (AHI = 24.5) associated with frequent arousals, oxyhemoglobin desaturation and minimal hypoxia (ayush oxygen saturation of 89%). The respiratory events occurred more frequently during supine sleep (supine AHI = 58.0; non-supine = 10.97). Snore was moderate in intensity. There was severe periodic leg movement of sleep contributing to the sleep fragmentation.. Cardiac rhythm was normal sinus rhythm without significant arrhythmia. No abnormal behavior (parasomnia) observed during the night. The patient was informed of these findings. I explained to her the pathophysiology behind obstructive sleep apnea. We then spent quite a bit of time discussing different treatment options. For mild obstructive sleep apnea, surgery and oral appliance are alternatives to nasal CPAP therapy but in moderate or severe cases, nasal CPAP is the most effective and reliable treatment. After some discussion, she opted to continue with the CPAP therapy. She does have an old CPAP at home set at 13 cmH2O. I does not use it much anymore. Allergies and Home Medications Drug allergies reviewed: Yes Home medication list reviewed: Yes Review of Systems Review of systems same as previous: Yes Physical Exam Weight: 170 lb Impression and Plan IMPRESSION: 1. Obstructive Sleep Apnea-Hypopnea Syndrome, moderate, associated with minimal hypoxemia and sleep fragmentation. Most likely, this is the cause of the patients symptoms of unrefreshed sleep, and excessive daytime sleepiness. Her old CPAP was not set optimally either because the residual AHI was still elevated at 6.6. As mentioned above, the patient will be scheduled to return for a manual CPAP/BiPAP titration study. PLAN: 1. Schedule a manual CPAP/BiPAP titration study. 2. Attempt to lose weight. 3. Be careful when driving until her sleepiness resolves completely on nasal CPAP therapy. 4. Return in one month for follow up. I will assess her response and compliance at that time. I spent 100% of this visit face to face with the patient with greater than 50% of this was spent time counseling the patient and coordination of care.
== END 2019-11-03 13:15 | disposition home or self-care (01) ==
LOC: SC 13:14
PROVIDERS: ATTEND Internal Medicine Pulmonary Disease
DX: G47.33 Obstructive sleep apnea (adult) (pediatric) (principal)
CPT/HCPCS: 99212; 99213

== ENCOUNTER 2019-11-05 13:07 | Outpatient (CLI) | payer BC | END 2019-11-05 13:08 | disposition home or self-care (01) | LOC: CAM 13:07 | PROVIDERS: ATTEND Physician Assistant Medical | DX: M54.16 Radiculopathy, lumbar region (principal) | CPT/HCPCS: 97813; 97814 ==

== ENCOUNTER 2019-11-12 13:07 | Outpatient (CLI) | payer BC, OTHER | END 2019-11-12 13:08 | disposition home or self-care (01) | LOC: CAM 13:07 | PROVIDERS: ATTEND Physician Assistant Medical | DX: M54.16 Radiculopathy, lumbar region (principal) | CPT/HCPCS: 97811; 97813 ==

== ENCOUNTER 2019-11-13 09:55 | Outpatient (CLI) | payer BC, OTHER ==
--- NOTE | 2019-11-13 16:50 | MRI Report ---
Reason: LUMBAR RADICULOPATHY Procedure Date: 11/13/2019 Accession Number: [id number] / [id number] Procedure: MRI - Lumbar Spine W/O CPT Code: Final Report FULL RESULT: EXAM: MRI LUMBAR SPINE WITHOUT CONTRAST EXAM DATE: 11/13/2019 10:57 AM. CLINICAL HISTORY: Bilateral lower limb radiculopathy to the feet for 6 months. COMPARISON: LUMBAR SPINE 2 VIEW 08/12/2019 8:25 AM. TECHNIQUE: Multiplanar, multisequence T1-weighted and fluid-sensitive sequences of the lumbar spine from T12 to S1 without contrast. Other: None. FINDINGS: Spinal Canal: The conus terminates at L1-L2. The conus medullaris and cauda equina are unremarkable. There is increased T2 signal in the short segment of the cord at the T9 level. There appears to be decreased cord volume. Although the finding may be due to artifact, the differential diagnosis includes prior insult or demyelinating disease. Pre- and postcontrast MRI of the thoracic spine is recommended. Alignment: Mild straightening of the lumbar lordosis. There is scalloping of the sacral canal at the S2 level. Bone Marrow: Five [id number] lumbar vertebral bodies are assumed. There are old single column fractures of the superior endplates of L1 and L2 with approximately 25% loss of vertebral body height each. There is Modic type I change at the L3-L4 level. Disk Levels/Facets: T12-L1: Unremarkable. L1-L2: Unremarkable. L2-L3: There is a small posterior disk bulge causing minimal canal and foraminal narrowing. L3-L4: There is a small posterior disk bulge and mild facet joint osteoarthritis causing mild canal and foraminal narrowing. L4-L5: There is a broad-based posterior disk bulge with moderate facet joint osteoarthritis and bilateral joint effusions causing mild canal narrowing. There is mild bilateral foraminal narrowing. L5-S1: There is a small posterior disk bulge with mild facet joint osteoarthritis causing mild bilateral foraminal narrowing and minimal canal narrowing. Musculature: Normal. No edema or fatty atrophy. Other: The partially visualized retroperitoneum is unremarkable. IMPRESSION: 1. Focal abnormal cord signal at the T9 level. The finding may represent artifact, however demyelinating disease or other insult cannot be excluded. Pre-and postcontrast MRI of the thoracic spine is recommended. 2. Old single column fractures of L1 and L2. 3. Mild, multilevel degenerative change. Mild canal and foraminal narrowing from L3-L4 to L5-S1. Comment: The following findings are so common in adults without low back pain that while we report their presence, they must be interpreted with caution and in the context of the clinical situation. (Reference Cachorro et al, Spine 2001) Prevalence of findings in patients without low back pain: Disk degeneration (any evidence): 92% Disk desiccation/T2 signal loss: 83% Disk height loss: 56% Disk bulge: 64% Disk protrusion: 32% Annular tear/high intensity zone: 38% RADIA
== END 2019-11-13 09:56 | disposition home or self-care (01) ==
LOC: DI 09:55
PROVIDERS: ATTEND Physician Assistant Medical
DX: M47.816 Spondylosis without myelopathy or radiculopathy, lumbar region (principal); M47.817 Spondylosis without myelopathy or radiculopathy, lumbosacral region; M51.86 Other intervertebral disc disorders, lumbar region; M51.87 Other intervertebral disc disorders, lumbosacral region; M48.061 Spinal stenosis, lumbar region without neurogenic claudication; M48.07 Spinal stenosis, lumbosacral region
CPT/HCPCS: 72148

== ENCOUNTER 2019-11-19 14:04 | Outpatient (CLI) | payer BC | END 2019-11-19 14:05 | disposition home or self-care (01) | LOC: CAM 14:04 | PROVIDERS: ATTEND Physician Assistant Medical | DX: M54.16 Radiculopathy, lumbar region (principal) | CPT/HCPCS: 97813; 97814 ==

== ENCOUNTER 2019-12-04 09:24 | Outpatient (CLI) | payer BC ==
[2019-12-04 10:24] LABS: BASOPHILS # (AUTO) 0.1 10^3/uL (0.0-0.1); BASOPHILS % (AUTO) 0.9 %; EOSINOPHILS # (AUTO) 0.3 10^3/uL (0.0-0.7); EOSINOPHILS % (AUTO) 2.8 %; HGB - HEMOGLOBIN 11.3 g/dL (12.0-16.0); LYMPHOCYTES # (AUTO) 2.6 10^3/uL (1.5-3.5); LYMPHOCYTES % (AUTO) 27.9 %; MEAN CORPUSCULAR HEMOGLOBIN 30.1 pg (27.0-31.0); MEAN CORPUSCULAR HGB CONC 33.7 g/dL (32.0-36.0); MEAN CORPUSCULAR VOLUME 89.1 fL (81.0-99.0); MEAN PLATELET VOLUME 10.6 fL (7.9-10.8); MONOCYTES % (AUTO) 10.3 %; NEUTROPHILS # (AUTO) 5.4 10^3/uL (1.5-6.6); NEUTROPHILS % (AUTO) 57.6 %; PLT - PLATELET COUNT 278 10^3/uL (130-450); RED BLOOD COUNT 3.76 10^6/uL (4.20-5.40); RED CELL DISTRIBUTION WIDTH 12.8 % (12.0-15.0); WHITE BLOOD COUNT 9.3 x10^3/uL (4.8-10.8)
[2019-12-04 10:41] LABS: ALBUMIN 3.8 g/dL (3.2-5.5); ALBUMIN/GLOBULIN RATIO 0.8 (1.0-2.2); ALKALINE PHOSPHATASE 118 IU/L (42-121); ALT ALANINE AMINOTRANSFERASE 18 IU/L (10-60); AST ASPARTATE AMINOTRANSFERASE 22 IU/L (10-42); BILIRUBIN,TOTAL 0.9 mg/dL (0.2-1.0); BUN - BLOOD UREA NITROGEN 24 mg/dL (6-20); CALCIUM 9.4 mg/dL (8.5-10.3); CARBON DIOXIDE - CO2 26 mmol/L (21-32); CHLORIDE 101 mmol/L (101-111); CHOL/HDL RATIO 4.7 (<4.4); CHOLESTEROL 202 mg/dL; CREATININE 1.1 mg/dL (0.4-1.0); GFR - MDRD 52 (>89); GLUCOSE 167 mg/dL (70-100); HDL CHOLESTEROL 43 mg/dL; LDL CHOLESTEROL,CALCULATED 131 mg/dL; SODIUM 136 mmol/L (135-145); TOTAL PROTEIN 8.5 g/dL (6.7-8.2); VLDL CHOLESTEROL 28 mg/dL
[2019-12-04 10:53] LABS: HB2 TOTAL 11.6 g/dL; HEMOGLOBIN A1C 0.63 g/dL; HEMOGLOBIN A1C % 7.1 % (4.6-6.2)
== END 2019-12-04 09:25 | disposition home or self-care (01) ==
LOC: LAB 09:24
PROVIDERS: ATTEND Physician Assistant Medical
DX: E11.9 Type 2 diabetes mellitus without complications (principal); D64.9 Anemia, unspecified
CPT/HCPCS: 36415; 80053; 80061; 83036; 83721; 85025

== ENCOUNTER 2019-12-31 09:51 | Outpatient (CLI) | payer BC ==
[2019-12-31] MEDS ORDERED: GADOBUTROL 7.5 MMOL/7.5 ML VIAL ONE (10:22)
[2019-12-31] MEDS ORDERED: GADOBUTROL 7.5 MMOL/7.5 ML VIAL IVP ONE (11:09)
--- NOTE | 2019-12-31 20:52 | MRI Report ---
Reason: BACK PAIN Procedure Date: 12/31/2019 Accession Number: [id number] / [id number] Procedure: MRI - Thoracic Spine W/WO CPT Code: Final Report FULL RESULT: EXAM: MRI THORACIC SPINE WITHOUT AND WITH CONTRAST EXAM DATE: 12/31/2019 11:22 AM. CLINICAL HISTORY: 54-year-old female. BACK PAIN. Prior MR lumbar spine demonstrating T2 hyperintense cord signal abnormality at T9 level. COMPARISONS: MR lumbar spine 11/13/2019 TECHNIQUE: Multiplanar, multisequence T1-weighted and fluid-sensitive sequences of the thoracic spine from C7 to L1 before and after administration of intravenous contrast. Other: None. IV contrast: GADAVIST . FINDINGS: Spinal Cord: Similar to prior MRI lumbar spine, there is a 1 cm focus of T2 hyperintense posterior cord signal abnormality and cord thinning (series 601 image 6). There is no associated abnormal enhancement. No T2 hyperintense cord lesions elsewhere within the visualized cord. Alignment: No scoliosis or spondylolisthesis. Bone Marrow: No evidence of acute fracture. Stable chronic compression fractures of the L1 and L2 vertebral bodies. T1 and T2 hyperintense lesions within T5, T8 vertebral body is favored to represent benign hemangiomata. Modic type I degenerative endplate changes at T6-T7 level with mild endplate edema and enhancement. Mild to moderate multilevel degenerative spondylosis as evidenced by disk height loss and desiccation and mild disk bulges at several thoracic levels. No significant central canal or foraminal narrowing at any thoracic level. Spinal Canal: No enhancing masses within the spinal canal. No epidural abscess. Musculature: Mild fatty atrophy of the paraspinal musculature. Other: The visualized lungs, mediastinum, and abdominal cavity are unremarkable. IMPRESSION: 1. Similar to prior MRI lumbar spine, there is a 1 cm focus of T2 hyperintense posterior cord signal abnormality and cord thinning (series 601 image 6). There is no associated abnormal enhancement. While the T2 hyperintense cord lesion is not specific, given associated cord thinning this is favored to represent myelomalacia, sequela of prior insult/injury. 2. No T2 hyperintense cord lesions elsewhere within the visualized cord. 3. No evidence of acute fracture. Stable chronic compression fractures of the L1 and L2 vertebral bodies. 4. T1 and T2 hyperintense lesions within T5, T8 vertebral body is favored to represent benign hemangiomata. 5. Modic type I degenerative endplate changes at T6-T7 level with mild endplate edema and enhancement. Modic type I degenerative changes may represent a source of pain. 6. Mild to moderate multilevel degenerative spondylosis as evidenced by disk height loss and desiccation and mild disk bulges at several thoracic levels. No significant central canal or foraminal narrowing at any thoracic level. RADIA
== END 2019-12-31 09:52 | disposition home or self-care (01) ==
LOC: DI 09:51
PROVIDERS: ATTEND Physician Assistant Medical
DX: M47.814 Spondylosis without myelopathy or radiculopathy, thoracic region (principal); M51.24 Other intervertebral disc displacement, thoracic region
CPT/HCPCS: 72157; A9585

== ENCOUNTER 2020-05-02 13:44 | Outpatient (CLI) | payer BC ==
[2020-05-02 15:02] VITALS: BP 124/70
--- NOTE | 2020-05-02 15:02 | SLEEP CARE CONSULTATION ---
Information from patient questionnaire entered by Gerda Berumen. I have reviewed and concur with the information entered by Gerda Berumen. This document represents the service I personally performed and the decisions made by me, Alexandra Arroyo, RN, MSN, LOAN COORDINATOR. History of Present Illness Service Date and Time: 05/02/2020 1344 Previous diagnosis: Moderate, Obstructive Sleep Apnea-Hypopnea Syndrome AHI: 25.4 (in 2019) Reason for follow up: first compliance after device update Accompanied by: Spouse Equipment type: CPAP Equipment obtained from: [employer] (no supplies yet - voicemail received she is now due.) Mask style: Nasal Backup mask available: No (Keep current mask as spare when replaced) Last cushion change: not since set up Prior sleep studies: Yes Year and Where: 2019 - [facility] Type of Sleep Study: Polysomnography CPAP Compliance Data - Data Reviewed with Patient Average duration of nightly device use: 8.75 Compliance rate %: 100 Current pressure setting (cmH2O): 10-15 Humidity settin Heated hose settin Average residual AHI: 1.9 Average large leak: 3 min 48 sec Subjective Patient concerns: reports: air blowing in eyes (notices upon waking in morning, does not disrupt sleep. ), dry mouth, nose, throat (dry mouth most days ), other (air too warm). denies: aerophagia, mask discomfort, mask leak noise, condensation in mask/hose, nasal congestion, epistaxis Observed to snore while using device: No Current pressure setting perceived as: comfortable On therapy, patient: reports: sleeping better, awakening more refreshed, being more awake and alert during the day, more rested overall (but has a residual that she feels is due to nocturia). denies: drowsiness while driving Initial Ub[place] Sleepiness Scale score: 19 (in 2019) Current Ubly Sleepiness Scale score: 7 Allergies and Home Medications Known drug allergies: Yes (see list ) Home medication list reviewed: No (Insulin dc'd due to good control) Review of Systems Review of systems same as previous: No (nocturia) Physical Exam Blood Pressure: 124/70 Cuff size: regular Heart Rate: 50 O2 Saturation: 95 Height: 5 ft Weight: 180 lb Body Mass Index: 35.2 BMI Classification: Obese Impression and Plan 1. Obstructive Sleep Apnea-Hypopnea Syndrome, moderate, with good treatment compliance and good apnea control. On CPAP therapy, the patient has better sleep quality and is more rested overall but has residual fatigue.To reduce warmth of air, verbal instructions given how to reduce her heated hose. Oral dryness can be reduced by adjusting humidity setting higher and rationale explaining why to change. Oral dryness can also be reduced by reducing mask leaks. Patient advised that chronic oral dryness can affect dental health and advised to follow up with dentist. Oral dryness products can be helpful. Patient to discuss best option with dentist.. She can refer to manual or call [facility] for further instructions if needed. She had questions about how to check her data on her CPAP and answered. Mask leaks can be reduced by washing mask daily and changing mask cushions more frequently to improve mask seal and comfort. Additionally, mask leaks predominately from when patient sleeps on their side can be reduced by using a CPAP pillow. Several styes can be purchased online. Cleaning questions answered and FDA warning about cleaning devices and not recommended. Further cleaning questions were referred to [facility] RT. Patient has gained weight. Currently patients BMI is 34.2 obesity class . Obesity increases the risk of apnea, CPAP pressure requirements and overall health risks especially cardiovascular and diabetes. Thus patient is advised to lose weight. Weight loss can be done with reducing portion size, reducing refined foods and balancing content with vegetables, fruit and protein. In addition tracking food intake will allow awareness of how to modify diet to achieve weight loss goals. Also eating more slowly will allow more awareness of food intake and enjoyment of food while assisting patient to modify intake at each meal. A diet consultation can be helpful in achieving optimal weight loss goals. The BMI chart was reviewed. The patient would like to reduce to 20 pounds bringing their BMI down to about 30. Patient encouraged to discuss their weight loss goals with their PCP and consider a referral to a motor runner.The patient's CPAP pressure was changed to 8-12 cmH2O to accommodate future weight loss. Symptoms to report for additional pressure adjustment discussed. Patient's apnea severity and rationale for treatment to reduce apnea, improve sleep quality and reduce cardiovascular and cerebrovascular events was reviewed. I also reviewed the benefit of consistent device use of CPAP for hypertension, cardiac disease, diabetes. 2. Nocturia, interrupting sleep. Further discussion revealed patient drinking lots of water and urinates frequently during the day as well. It is unclear if due to thirst or habit. She has diabetes and taken off insulin recently due to good control of her diabetes but is not checking her blood sugar. She also reports residual \fatigue. She is advised to check her blood sugar and contact her PCP for further evaluation of symptoms with rationale discussed. Patient agreed with plan. * * Change auto CPAP pressure to 8-12 cmH2O * Notify me if snoring with mask or feeling that the pressure is too much or too little * Implement methods to reduce oral dryness / mask leaks. * Attempt to lose weight * Follow up with PCP for further evaluation of frequent urination * Call this office if any problems using CPAP * Return for follow up in 1 year , or sooner if concerns arise Visit Type: In Office Other Participants: Spouse/Significant Other Time Spent with Patient (minutes): 40 Provider Statement: I spent 100% of the Face to Face Visit with the patient with greater than 50% spent counseling the patient and coordination of care.
== END 2020-05-02 13:45 | disposition home or self-care (01) ==
LOC: SC 13:44
PROVIDERS: ATTEND Nurse Practitioner Family
DX: G47.33 Obstructive sleep apnea (adult) (pediatric) (principal); R35.1 Nocturia; E66.9 Obesity, unspecified; Z68.35 Body mass index [BMI] 35.0-35.9, adult
CPT/HCPCS: 99212; 99215

== ENCOUNTER 2020-05-04 10:41 | Outpatient (CLI) | payer BC ==
[2020-05-04 11:17] LABS: BASOPHILS # (AUTO) 0.1 10^3/uL (0.0-0.1); BASOPHILS % (AUTO) 1.1 %; EOSINOPHILS # (AUTO) 0.2 10^3/uL (0.0-0.7); EOSINOPHILS % (AUTO) 2.1 %; HGB - HEMOGLOBIN 11.3 g/dL (12.0-16.0); LYMPHOCYTES # (AUTO) 2.3 10^3/uL (1.5-3.5); LYMPHOCYTES % (AUTO) 28.9 %; MEAN CORPUSCULAR HEMOGLOBIN 29.3 pg (27.0-31.0); MEAN CORPUSCULAR HGB CONC 34.5 g/dL (32.0-36.0); MONOCYTES # (AUTO) 0.7 10^3/uL (0.0-1.0); MONOCYTES % (AUTO) 8.3 %; NEUTROPHILS # (AUTO) 4.7 10^3/uL (1.5-6.6); NEUTROPHILS % (AUTO) 59.1 %; PLT - PLATELET COUNT 261 10^3/uL (130-450); RED BLOOD COUNT 3.86 10^6/uL (4.20-5.40); RED CELL DISTRIBUTION WIDTH 12.8 % (12.0-15.0)
[2020-05-04 11:32] LABS: CREATININE,URINE 51.3 mg/dL; MICROALBUM/CREATININE RATIO,UR 444.4 ug/mg (<30.0); MICROALBUMIN,URINE 22.8 mg/dL (0-300.0)
[2020-05-04 11:39] LABS: HB2 TOTAL 11.7 g/dL; HEMOGLOBIN A1C 1.97 g/dL; HEMOGLOBIN A1C % 17.6 % (4.6-6.2)
[2020-05-04 11:43] LABS: ALBUMIN 3.7 g/dL (3.2-5.5); ALBUMIN/GLOBULIN RATIO 0.8 (1.0-2.2); ALKALINE PHOSPHATASE 170 IU/L (42-121); ALT ALANINE AMINOTRANSFERASE 17 IU/L (10-60); AST ASPARTATE AMINOTRANSFERASE 18 IU/L (10-42); BILIRUBIN,TOTAL 0.8 mg/dL (0.2-1.0); BUN - BLOOD UREA NITROGEN 31 mg/dL (6-20); CALCIUM 9.3 mg/dL (8.5-10.3); CARBON DIOXIDE - CO2 24 mmol/L (21-32); CHLORIDE 98 mmol/L (101-111); CHOL/HDL RATIO 6.3 (<4.4); CHOLESTEROL 258 mg/dL; CREATININE 1.2 mg/dL (0.4-1.0); GLUCOSE 436 mg/dL (70-100); HDL CHOLESTEROL 41 mg/dL; LDL CHOLESTEROL,CALCULATED 145 mg/dL; LDL/HDL RATIO 3.5 (<4.4); SODIUM 131 mmol/L (135-145); TOTAL PROTEIN 8.5 g/dL (6.7-8.2); VLDL CHOLESTEROL 72 mg/dL
== END 2020-05-04 10:42 | disposition home or self-care (01) ==
LOC: LAB 10:41
PROVIDERS: ATTEND Physician Assistant Medical
DX: E11.9 Type 2 diabetes mellitus without complications (principal); D64.9 Anemia, unspecified
CPT/HCPCS: 36415; 80053; 80061; 82043; 82570; 83036; 83721; 84443; 85025

== ENCOUNTER 2020-07-06 10:09 | Outpatient (CLI) | payer BC ==
[2020-07-06 10:47] LABS: ALBUMIN 3.8 g/dL (3.2-5.5); ALBUMIN/GLOBULIN RATIO 0.7 (1.0-2.2); ALKALINE PHOSPHATASE 154 IU/L (42-121); ALT ALANINE AMINOTRANSFERASE 16 IU/L (10-60); AST ASPARTATE AMINOTRANSFERASE 18 IU/L (10-42); BILIRUBIN,TOTAL 0.7 mg/dL (0.2-1.0); BUN - BLOOD UREA NITROGEN 29 mg/dL (6-20); CALCIUM 9.5 mg/dL (8.5-10.3); CARBON DIOXIDE - CO2 24 mmol/L (21-32); CHLORIDE 106 mmol/L (101-111); CHOL/HDL RATIO 5.9 (<4.4); CHOLESTEROL 237 mg/dL; CREATININE 1.2 mg/dL (0.4-1.0); GLUCOSE 106 mg/dL (70-100); HDL CHOLESTEROL 40 mg/dL; LDL CHOLESTEROL,CALCULATED 168 mg/dL; LDL/HDL RATIO 4.2 (<4.4); SODIUM 138 mmol/L (135-145); TOTAL PROTEIN 8.9 g/dL (6.7-8.2); VLDL CHOLESTEROL 29 mg/dL
[2020-07-06 11:03] LABS: CREATININE,URINE 66.9 mg/dL; MICROALBUM/CREATININE RATIO,UR 1095.7 ug/mg (<30.0); MICROALBUMIN,URINE 73.3 mg/dL (0-300.0)
[2020-07-06 11:17] LABS: HEMOGLOBIN A1c% 8.6 % (4.27-6.07)
== END 2020-07-06 10:10 | disposition home or self-care (01) ==
LOC: LAB 10:09
PROVIDERS: ATTEND Physician Assistant Medical
DX: E11.9 Type 2 diabetes mellitus without complications (principal); E78.5 Hyperlipidemia, unspecified
CPT/HCPCS: 36415; 80053; 80061; 82043; 82570; 83036; 83721

== ENCOUNTER 2020-08-16 07:47 | Outpatient (CLI) | payer BC ==
--- NOTE | 2020-08-16 16:39 | Ultrasound Report ---
PROCEDURE: Abdomen Limited INDICATIONS: ALCOHOL CIRRHOSIS OF LIVER TECHNIQUE: Real-time scanning was performed of the abdominal and retroperitoneal organs, with image documentatio n. COMPARISON: Ultrasound abdomen 08/12/2019 FINDINGS: Liver: Liver is enlarged measuring 21.8 cm and coarsened in echotexture. Gallbladder: No stones are identified. Wall thickness is within normal limits measuring 1.9 mm. No so nographic Todd sign. Biliary ducts: Intrahepatic bile ducts are non-dilated. Extrahepatic bile duct caliber measures 5.2 mm. Normal is 6-7 mm or less in diameter, or 10 mm or less post-cholecystectomy. Pancreas: Visualized portions of the pancreas are sonographically normal. Kidneys: Kidneys are normal in size and echotexture. Right kidney measures 11.8 cm long; cortical t hickness measures 1.6 cm. No hydronephrosis or nephrolithiasis. No solid masses. IMPRESSION: 1. Hepatomegaly with coarsened echotexture suggestive of cirrhosis. Reviewed by: Katia Mills MD on 08/16/2020 4:38 PM PDT Approved by: Katia Mills MD on 08/16/2020 4:38 PM PDT Station ID: [id number]
== END 2020-08-16 07:48 | disposition home or self-care (01) ==
LOC: DI 07:47
PROVIDERS: ATTEND Internal Medicine
DX: K70.30 Alcoholic cirrhosis of liver without ascites (principal)
CPT/HCPCS: 76705

== ENCOUNTER 2020-11-28 17:08 | Outpatient (CLI) | payer BC ==
--- NOTE | 2020-11-28 18:51 | XRAY Report ---
PROCEDURE: Shoulder 3 View RT INDICATIONS: SHOULDER IMPINGEMENT SYNDROME TECHNIQUE: 3 views of the shoulder were acquired. COMPARISON: None. FINDINGS: Bones: No fractures or dislocations. No suspicious bony lesions. Visualized ribs appear intact. M oderate acromioclavicular joint osteoarthritis. Mild glenohumeral joint arthritis. Soft tissues: No suspicious soft tissue calcifications. IMPRESSION: 1. Moderate acromioclavicular joint osteoarthritis. 2. Mild glenohumeral joint arthritis. 3. No acute fracture. No acute osseous lesion. If there persistent symptoms or continued clinical con cern for pathology, then repeat plain film radiographs (7-10 days) or advanced imaging (CT, MR, bone scan) should be considered for further evaluation. Reviewed by: Tammy Aranda MD, PhD on 11/28/2020 5:49 PM [facility] Approved by: Tammy Aranda MD, PhD on 11/28/2020 5:49 PM [facility] Station ID: [id number]
== END 2020-11-28 17:09 | disposition home or self-care (01) ==
LOC: DI.WCP 17:08 → DI 17:08
PROVIDERS: ATTEND Physician Assistant Medical
DX: M75.41 Impingement syndrome of right shoulder (principal); M19.011 Primary osteoarthritis, right shoulder

== ENCOUNTER 2021-02-04 18:01 | Emergency (ER) | payer BC ==
[2021-02-04 18:51] LABS: BASOPHILS # (AUTO) 0.1 10^3/uL (0.0-0.1); EOSINOPHILS # (AUTO) 0.2 10^3/uL (0.0-0.7); EOSINOPHILS % (AUTO) 1.9 %; HCT - HEMATOCRIT 33.4 % (37.0-47.0); HGB - HEMOGLOBIN 11.1 g/dL (12.0-16.0); LYMPHOCYTES # (AUTO) 2.3 10^3/uL (1.5-3.5); LYMPHOCYTES % (AUTO) 22.5 %; MEAN CORPUSCULAR HEMOGLOBIN 29.8 pg (27.0-31.0); MEAN CORPUSCULAR HGB CONC 33.2 g/dL (32.0-36.0); MEAN CORPUSCULAR VOLUME 89.5 fL (81.0-99.0); MEAN PLATELET VOLUME 9.8 fL (7.9-10.8); MONOCYTES # (AUTO) 1.1 10^3/uL (0.0-1.0); MONOCYTES % (AUTO) 10.9 %; NEUTROPHILS # (AUTO) 6.6 10^3/uL (1.5-6.6); NEUTROPHILS % (AUTO) 63.3 %; PLT - PLATELET COUNT 276 10^3/uL (130-450); RED BLOOD COUNT 3.73 10^6/uL (4.20-5.40); RED CELL DISTRIBUTION WIDTH 13.9 % (12.0-15.0); WHITE BLOOD COUNT 10.4 x10^3/uL (4.8-10.8)
--- NOTE | 2021-02-04 18:51 | ED Physician Documentation ---
History of Present Illness - Stated complaint Stated Complaint: SOA/SWOLLEN LEGS - Chief complaint Chief Complaint: Cardiac - History obtained from History obtained from: Patient - History of Present Illness Timing: How many weeks ago (several) Pain level max: 0 Pain level now: 0 - Additonal information Additional information: 55-year-old female states she has had difficulty breathing over the past few months. Increasing leg swelling over the past few weeks. Nothing seems to make it better, worse with exertion. She states that she has no chest pain. She just feels like she cannot take a full deep breath. She does have a history of paroxysmal atrial fibrillation. Denies any history of heart failure that she is aware of. No history of lung issues. Does not use inhalers. No fevers. No chills. No cough. No recent travel. Review of Systems Ten Systems: 10 systems reviewed and negative Constitutional: denies: Fever, Chills Throat: denies: Sore throat Respiratory: denies: Cough GI: denies: Nausea, Vomiting, Diarrhea Skin: denies: Rash Musculoskeletal: denies: Neck pain, Back pain Neurologic: denies: Headache PD PAST MEDICAL HISTORY - Past Medical History Past Medical History: Yes Cardiovascular: Hypertension Respiratory: Sleep apnea, CPAP use Neuro: None Endocrine/Autoimmune: Type 2 diabetes GI: None : None HEENT: Chronic vision loss Psych: None Musculoskeletal: None Derm: None - Past Surgical History Past Surgical History: No - Present Medications Home Medications: Ambulatory Orders Medication Instructions Recorded Confirmed Metoprolol Tartrate [Lopressor] 50 mg PO BID #20 tablet 05/30/19 02/04/21 Atorvastatin [Lipitor] 20 mg PO QPM 02/04/21 02/04/21 Furosemide [Lasix] 20 mg PO DAILY #14 tablet 02/04/21 Glimepiride [Amaryl] 4 mg PO DAILY 02/04/21 02/04/21 amLODIPine [Norvasc] 5 mg PO DAILY 02/04/21 02/04/21 - Allergies Allergies/Adverse Reactions: Allergies Allergy/AdvReac Type Severity Reaction Status Date / Time cephalexin Allergy Unknown Verified 02/04/21 18:11 Penicillins AdvReac Intermediate Nausea Verified 02/04/21 18:11 - Social History Does the pt smoke?: Yes Smoking Status: Current every day smoker Does the pt drink ETOH?: No Does the pt have substance abuse?: No - POLST Patient has POLST: No POLST Status: Full Code PD ED PE NORMAL - Vitals Vital signs reviewed: Yes - General General: Alert and oriented X 3, No acute distress, Well developed/nourished - HEENT HEENT: PERRL, Moist mucous membranes - Neck Neck: Supple, no meningeal sign - Cardiac Cardiac: RRR, Strong equal pulses - Respiratory Respiratory: No respiratory distress, Clear bilaterally - Abdomen Abdomen: Soft, Non tender, Non distended - Derm Derm: Warm and dry - Extremities Extremities: No calf tenderness / cord, Other (2+ bilateral pitting edema.) - Neuro Neuro: Alert and oriented X 3 - Psych Psych: Normal mood, Normal affect Results - Vitals Vitals: Vital Signs - 24 hr 02/04/21 02/04/21 18:07 19:36 Temperature 36.2 C L Heart Rate 66 63 Respiratory 20 18 Rate Blood Pressure 148/81 H 158/96 H O2 Saturation 98 100 Oxygen O2 Source Room air - EKG (time done) 1826 Rate: Rate (enter#) (61) Rhythm: NSR [place]: Normal Intervals: Prolonged [place] QRS: Normal Ischemia: Normal ST segments - Labs Labs: Laboratory Tests 02/04/21 02/04/21 02/04/21 18:45 18:45 18:45 WBC 10.4 RBC 3.73 L Hgb 11.1 L Hct 33.4 L MCV 89.5 MCH 29.8 MCHC 33.2 RDW 13.9 Plt Count 276 MPV 9.8 Neut # (Auto) 6.6 Lymph # (Auto) 2.3 [place] # (Auto) 1.1 H Eos # (Auto) 0.2 Baso # (Auto) 0.1 Absolute Nucleated RBC 0.00 Nucleated RBC % 0.0 Sodium 141 Potassium 4.4 Chloride 111 Carbon Dioxide 20 L Anion Gap 10.0 BUN 38 H Creatinine 1.5 H Estimated GFR (MDRD) 36 L Glucose 93 Calcium 9.4 Total Bilirubin 0.7 AST 23 ALT 22 Alkaline Phosphatase 219 H Troponin I High Sens 8.9 B-Natriuretic Peptide Total Protein 9.4 H Albumin 4.0 Globulin 5.4 H Albumin/Globulin Ratio 0.7 L Lipase 40 02/04/21 18:45 WBC RBC Hgb Hct MCV MCH MCHC RDW Plt Count MPV Neut # (Auto) Lymph # (Auto) [place] # (Auto) Eos # (Auto) Baso # (Auto) Absolute Nucleated RBC Nucleated RBC % Sodium Potassium Chloride Carbon Dioxide Anion Gap BUN Creatinine Estimated GFR (MDRD) Glucose Calcium Total Bilirubin AST ALT Alkaline Phosphatase Troponin I High Sens B-Natriuretic Peptide 191 H Total Protein Albumin Globulin Albumin/Globulin Ratio Lipase - Rads (name of study) Chest x-ray Radiology: Prelim report reviewed, EMP read contemporaneously, See rad report (Mild cardiomegaly) PD MEDICAL DECISION MAKING - ED course Complexity details: reviewed results, re-evaluated patient, considered differential, d/w patient ED course: Patient with mild cardiomegaly and pitting edema bilateral lower extremities. Concerning for new onset CHF. Echo is not available here this weekend. Her BNP is mildly elevated. We will start her on Lasix and have her follow-up with her doctor next week. No wheezing. No stridor. No respiratory distress. No evidence of acute [place]. Patient counseled regarding signs and symptoms for which I believe and urgent re-evaluation would be necessary. Patient with good understanding of and agreement to plan and is comfortable going home at this time This document was made in part using voice recognition software. While efforts are made to proofread this document, sound alike and grammatical errors may occur. Departure - Departure Disposition: 01 Home, Self Care Clinical Impression: Peripheral edema Dyspnea Qualifiers: Dyspnea type: unspecified Qualified Code(s): R06.00 - Dyspnea, unspecified Condition: Good Instructions: ED Edema Legs Bilateral Follow-Up: Keri Ochoa PA-C [Primary Care Provider] - Within 1 week Prescriptions: Furosemide [Lasix] 20 mg PO DAILY #14 tablet Comments: We will start you on a low-dose of Lasix today. You need follow-up with your doctor next week for further care. You will likely need an echocardiogram to evaluate for any congestive heart failure. You will also need your potassium rechecked next week. Return if you worsen.
--- NOTE | 2021-02-04 19:01 | XRAY Report ---
PROCEDURE: Chest 1 View X-Ray INDICATIONS: dyspnea TECHNIQUE: One view of the chest was acquired. COMPARISON: 05/27/2019 FINDINGS: Surgical changes and devices: None. Lungs and pleura: No pleural effusions or pneumothorax. Lungs are clear. Mediastinum: Mediastinal contours appear normal. Heart size is mildly enlarged. Bones and chest wall: No suspicious bony lesions. Overlying soft tissues appear unremarkable. IMPRESSION: No acute cardiopulmonary pathology. Reviewed by: Chaz Pablo MD on 02/04/2021 6:59 PM PDT Approved by: Chaz Pablo MD on 02/04/2021 6:59 PM PDT Station ID: [id number]
[2021-02-04 19:18] LABS: ALBUMIN/GLOBULIN RATIO 0.7 (1.0-2.2); BILIRUBIN,TOTAL 0.7 mg/dL (0.2-1.0); CALCIUM 9.4 mg/dL (8.5-10.3); CREATININE 1.5 mg/dL (0.4-1.0); POTASSIUM 4.4 mmol/L (3.5-5.0); TOTAL PROTEIN 9.4 g/dL (6.7-8.2)
[2021-02-04] MEDS ORDERED: FUROSEMIDE 20 MG TABLET PO STA (19:24)
[2021-02-04 19:37] VITALS: BP 158/96
--- OUTSIDE RECORDS SUMMARY | 2021-02-08 02:37 | EXTERNAL MEDICAL SUMMARY RPT | Continuity of Care Document ---
:1965 Demographics Phone Unavailable Preferred Language Unknown Marital Status Unknown Alevism Affiliation Unknown Race Unknown Ethnic Group Unknown Author Organization [facility] Address [address] [id number] Phone Social History date description facility [phone]
== END 2021-02-04 19:44 | disposition home or self-care (01) ==
LOC: ED 18:01
DX: R06.00 Dyspnea, unspecified (principal); R60.0 Localized edema; I44.0 Atrioventricular block, first degree; I10 Essential (primary) hypertension; E11.9 Type 2 diabetes mellitus without complications; Z79.84 Long term (current) use of oral hypoglycemic drugs; F17.200 Nicotine dependence, unspecified, uncomplicated
CPT/HCPCS: 36415; 71045; 80053; 83690; 83880; 84484; 85025; 93005; 99284; A9270

== ENCOUNTER 2021-02-08 08:00 | Outpatient (CLI) | payer BC ==
[2021-02-08 18:34] LABS: ALBUMIN 3.7 g/dL (3.2-5.5); ALBUMIN/GLOBULIN RATIO 0.7 (1.0-2.2); BILIRUBIN,TOTAL 0.6 mg/dL (0.2-1.0); CALCIUM 8.7 mg/dL (8.5-10.3); CREATININE 1.5 mg/dL (0.4-1.0); POTASSIUM 4.1 mmol/L (3.5-5.0); TOTAL PROTEIN 8.9 g/dL (6.7-8.2)
[2021-02-08 20:18] LABS: ESTIMATED AVERAGE GLUCOSE 166 mg/dL (70-100); HEMOGLOBIN A1c% 7.4 % (4.27-6.07)
== END 2021-02-08 23:59 | disposition home or self-care (01) ==
LOC: LAB.WCP 08:00
PROVIDERS: ATTEND Physician Assistant Medical
DX: E11.9 Type 2 diabetes mellitus without complications (principal)
CPT/HCPCS: 36415; 80053; 83036

== ENCOUNTER 2021-03-23 07:39 | Outpatient (CLI) | payer BC | END 2021-03-23 07:40 | disposition home or self-care (01) | LOC: DI 07:39 | PROVIDERS: ATTEND Family Medicine | DX: I51.7 Cardiomegaly (principal); I31.3 Pericardial effusion (noninflammatory); I70.0 Atherosclerosis of aorta; I28.8 Other diseases of pulmonary vessels; I87.8 Other specified disorders of veins; N18.9 Chronic kidney disease, unspecified | CPT/HCPCS: 36415; 80048; 93306 ==

== ENCOUNTER 2021-03-23 08:38 | Outpatient (CLI) | payer BC ==
[2021-03-23 08:57] LABS: CALCIUM 9.2 mg/dL (8.5-10.3); CREATININE 1.7 mg/dL (0.4-1.0); POTASSIUM 4.2 mmol/L (3.5-5.0)
== END 2021-03-23 08:39 | disposition home or self-care (01) ==
LOC: LAB 08:38
PROVIDERS: ATTEND Physician Assistant Medical
DX: N18.9 Chronic kidney disease, unspecified (principal)
CPT/HCPCS: 36415; 80048

== ENCOUNTER 2021-04-06 10:10 | Outpatient (CLI) | payer BC ==
--- NOTE | 2021-04-06 10:22 | SLEEP CARE CONSULTATION ---
Information from patient questionnaire entered by Gerda Berumen. I have reviewed and concur with the information entered by Gerda Berumen. This document represents the service I personally performed and the decisions made by , Jennifer Vázquez ARNP. History of Present Illness Service Date and Time: 04/06/2021 1020 Previous diagnosis: Moderate, Obstructive Sleep Apnea-Hypopnea Syndrome AHI: 25.4 (in 2019) Reason for follow up: annual (Last seen 04/2020) Equipment type: CPAP Equipment obtained from: [employer] (getting supplies as needed) Mask style: Nasal (over the nose) Backup mask available: Yes (other mask) Last cushion change: 1 week ago Prior sleep studies: Yes Year and Where: 2019 - [facility] Sleep HPI additional information: LINNEA RAMIREZ was diagnosed to have moderate, AHI 25.4, obstructive sleep apnea-hypopnea syndrome and returns via Telehealth visit today for CPAP therapy annual follow-up. CPAP Compliance Data - Data Reviewed with Patient Average duration of nightly device use: 8 hr 49 min Compliance rate %: 99.4 (180 days) Current pressure setting (cmH2O): 8-12 Humidity settin Heated hose settin Average residual AHI: 3.8 Central apnea: 0.1 Obstructive apnea: 0.4 Hypopnea: 3.3 Average large leak: 1 min 3 sec Subjective Patient concerns: denies: aerophagia, mask discomfort, air blowing in eyes, mask leak noise, condensation in mask/hose, nasal congestion, dry mouth, nose, throat, epistaxis, other Observed to snore while using device: No Current pressure setting perceived as: comfortable On therapy, patient: reports: sleeping better, awakening more refreshed, being more awake and alert during the day, more rested overall. denies: drowsiness while driving Initial [place]ron Sleepiness Scale score: 19 (in 2019) Current [place] Sleepiness Scale score: 4 Allergies and Home Medications Home medication list reviewed: Yes (furosemide) Review of Systems Review of systems same as previous: No (ER - dx CHF, seeing cardiology tomorrow; blood pressure up) Physical Exam Vital signs obtained and entered by: Telehealth visit to reduce exposure during Covid pandemic Height: 5 ft 1 in Impression and Plan 1. Obstructive Sleep Apnea-Hypopnea Syndrome, moderate, with excellent treatment compliance and good apnea control. On CPAP therapy, the patient has better sleep quality and is more rested overall. She is very satisfied with her treatment and intends to continue jail. She has had a recent ER visit because of breathing difficulties and was told she had CHF and was put on furosemide. She has been losing some water weight since starting this medication. She has an appointment with [facility] director tomorrow for further evaluation. She will follow up her in 1 year. Patient's apnea severity and rationale for treatment to reduce apnea, improve sleep quality and reduce cardiovascular and cerebrovascular events was reviewed. I also reviewed the benefit of consistent device use of CPAP for hypertension, cardiac disease, and diabetes. * Continue auto CPAP pressure at 8-12 cmH2O * Notify me if snoring with mask or feeling that the pressure is too much or too little * Attempt to lose weight * Call this office if any problems using CPAP * Return for follow up in 1 year, or sooner if concerns arise Counseling Topics: Spare mask, Weight loss health impact Visit Type: Telehealth Video Video Type: VSee Patient Location: Home Location of Provider: Office Patient agrees and consents to this telehealth visit type: Yes Patient agrees to have their insurance billed: Yes Time Spent with Patient (minutes): 12 Provider Statement: I spent 100% of the Telehealth Video Call with the patient with greater than 50% spent counseling the patient and coordination of care.
== END 2021-04-06 10:11 | disposition home or self-care (01) ==
LOC: SC 10:10
PROVIDERS: ATTEND Nurse Practitioner Family
DX: G47.33 Obstructive sleep apnea (adult) (pediatric) (principal)

== ENCOUNTER 2021-04-20 10:07 | Outpatient (CLI) | payer BC ==
[2021-04-20 10:43] LABS: HCT - HEMATOCRIT 30.6 % (37.0-47.0); MEAN CORPUSCULAR HEMOGLOBIN 29.3 pg (27.0-31.0); MEAN CORPUSCULAR HGB CONC 32.7 g/dL (32.0-36.0); MEAN CORPUSCULAR VOLUME 89.7 fL (81.0-99.0); MEAN PLATELET VOLUME 10.2 fL (7.9-10.8); RED BLOOD COUNT 3.41 10^6/uL (4.20-5.40); RED CELL DISTRIBUTION WIDTH 14.2 % (12.0-15.0); WHITE BLOOD COUNT 8.7 x10^3/uL (4.8-10.8)
[2021-04-20 10:57] LABS: CALCIUM 8.8 mg/dL (8.5-10.3); POTASSIUM 4.5 mmol/L (3.5-5.0)
== END 2021-04-20 10:08 | disposition home or self-care (01) ==
LOC: LAB 10:07
PROVIDERS: ATTEND Internal Medicine Cardiovascular Disease
DX: I11.0 Hypertensive heart disease with heart failure (principal); I50.32 Chronic diastolic (congestive) heart failure; I48.0 Paroxysmal atrial fibrillation; E11.69 Type 2 diabetes mellitus with other specified complication; E78.5 Hyperlipidemia, unspecified; R31.29 Other microscopic hematuria; E78.49 Other hyperlipidemia
CPT/HCPCS: 36415; 80048; 83880; 85027

== ENCOUNTER 2021-05-25 08:50 | Outpatient (CLI) | payer BC ==
[2021-05-26 19:30] LABS: H. PYLORIS ANTIGEN STL NEGATIVE (Negative)
== END 2021-05-25 23:59 | disposition home or self-care (01) ==
LOC: LAB.R 08:50
PROVIDERS: ATTEND Physician Assistant Medical
DX: K52.9 Noninfective gastroenteritis and colitis, unspecified (principal)
CPT/HCPCS: 81599; 83993; 87045; 87177; 87209; 87329; 87338; 87427; 87449; 87493

== ENCOUNTER 2021-05-26 17:24 | Outpatient (CLI) | payer BC ==
[2021-05-26 18:34] LABS: CREATININE,URINE 84.3 mg/dL; PROTEIN/CREATININE RATIO,URINE 1.4 (<=0.2)
== END 2021-05-26 17:25 | disposition home or self-care (01) ==
LOC: LAB 17:24
PROVIDERS: ATTEND Internal Medicine Nephrology
DX: R80.9 Proteinuria, unspecified (principal)
CPT/HCPCS: 82570; 84156

== ENCOUNTER 2021-06-21 18:36 | Outpatient (CLI) | payer BC ==
--- NOTE | 2021-06-21 20:31 | Ultrasound Report ---
PROCEDURE: Retroperitoneal INDICATIONS: KIDNEY INJURY TECHNIQUE: Real-time scanning was performed of the retroperitoneal organs, with image documentation. COMPARISON: None. FINDINGS: Kidneys: Kidneys are normal in size. Right kidney measures 11.2 cm long; left kidney measures 12.3 cm long. Right renal cortical thickness is 1.3 cm; left renal cortical thickness is 1.1 cm. No bijan d masses, hydronephrosis, or nephrolithiasis. Increased bilateral renal parenchymal echotexture is s een more prominent on the right side. Multiple left renal cysts are seen measures up to 1.2 cm in siz e. Prevoid bladder volume is 187.6 cc. Postvoid residual is 33.5 cc. Bilateral ureteral jets are seen. Small to moderate amount of ascites fluid is seen in all 4 quadrants of abdomen. IMPRESSION: 1. Increased bilateral renal parenchymal echotexture suggestive of medical renal disease. No obstruct ing renal stone or hydronephrosis. Multiple left renal cysts. 2. No gross abnormality is seen in urinary bladder. Small amount of post void residual. Reviewed by: Chaz Pablo MD on 06/21/2021 8:29 PM PDT Approved by: Chaz Pablo MD on 06/21/2021 8:29 PM PDT Station ID: [id number]
[2021-06-24 23:21] LABS: ANA SCREEN NEGATIVE (NEGATIVE)
== END 2021-06-21 18:37 | disposition home or self-care (01) ==
LOC: DI 18:36
PROVIDERS: ATTEND Internal Medicine Nephrology
DX: N17.9 Acute kidney failure, unspecified (principal); R93.422 Abnormal radiologic findings on diagnostic imaging of left kidney; R93.421 Abnormal radiologic findings on diagnostic imaging of right kidney; N28.1 Cyst of kidney, acquired; L93.2 Other local lupus erythematosus; M31.30 Wegener's granulomatosis without renal involvement; N00.9 Acute nephritic syndrome with unspecified morphologic changes; R80.9 Proteinuria, unspecified; D47.2 Monoclonal gammopathy
CPT/HCPCS: 36415; 81599; 83520; 83883; 86038

== ENCOUNTER 2021-07-11 10:20 | Outpatient (CLI) | payer BC ==
[2021-07-11 11:04] LABS: BASOPHILS # (AUTO) 0.1 10^3/uL (0.0-0.1); BASOPHILS % (AUTO) 0.8 %; EOSINOPHILS # (AUTO) 0.3 10^3/uL (0.0-0.7); EOSINOPHILS % (AUTO) 2.6 %; HCT - HEMATOCRIT 33.6 % (37.0-47.0); HGB - HEMOGLOBIN 10.7 g/dL (12.0-16.0); LYMPHOCYTES # (AUTO) 1.9 10^3/uL (1.5-3.5); LYMPHOCYTES % (AUTO) 19.1 %; MEAN CORPUSCULAR HEMOGLOBIN 28.1 pg (27.0-31.0); MEAN CORPUSCULAR HGB CONC 31.8 g/dL (32.0-36.0); MEAN CORPUSCULAR VOLUME 88.2 fL (81.0-99.0); MEAN PLATELET VOLUME 9.5 fL (7.9-10.8); MONOCYTES # (AUTO) 0.8 10^3/uL (0.0-1.0); MONOCYTES % (AUTO) 7.7 %; NEUTROPHILS # (AUTO) 6.8 10^3/uL (1.5-6.6); PLT - PLATELET COUNT 292 10^3/uL (130-450); RED BLOOD COUNT 3.81 10^6/uL (4.20-5.40); RED CELL DISTRIBUTION WIDTH 14.2 % (12.0-15.0); WHITE BLOOD COUNT 9.9 x10^3/uL (4.8-10.8)
[2021-07-11 11:16] LABS: CALCIUM 8.9 mg/dL (8.5-10.3); CREATININE 1.6 mg/dL (0.4-1.0)
[2021-07-11 11:38] LABS: CREATININE,URINE 56.2 mg/dL; PROTEIN/CREATININE RATIO,URINE 2.9 (<=0.2)
== END 2021-07-11 10:21 | disposition home or self-care (01) ==
LOC: LAB 10:20
PROVIDERS: ATTEND Internal Medicine Nephrology
DX: N05.9 Unspecified nephritic syndrome with unspecified morphologic changes (principal); D70.9 Neutropenia, unspecified; R80.9 Proteinuria, unspecified
CPT/HCPCS: 36415; 80048; 82570; 84156; 85025

== ENCOUNTER 2021-08-06 07:32 | Outpatient (CLI) | payer BC ==
--- NOTE | 2021-08-06 09:22 | Ultrasound Report ---
PROCEDURE: Ultrasound the abdomen, limited INDICATIONS: ALCOHOL CIRRHOSIS OF LIVER TECHNIQUE: Real-time scanning was performed of the abdominal and retroperitoneal organs, with image documentatio n. COMPARISON: August 16, 2020 FINDINGS: Liver: Liver is enlarged measuring 20.0 cm and coarsened in echotexture. Microlobulation of the hep atic capsule noted. Gallbladder: No stones are identified. Wall thickness is within normal limits measuring 3 mm. No sono graphic Todd sign. Biliary ducts: Intrahepatic bile ducts are non-dilated. Extrahepatic bile duct caliber measures 4.5 mm. Normal is 6-7 mm or less in diameter, or 10 mm or less post-cholecystectomy. Pancreas: Visualized portions of the pancreas are sonographically normal. Kidneys: Kidneys are normal in size and echotexture. Right kidney measures 11.8 cm long; cortical t hickness measures 1.3 cm. No hydronephrosis or nephrolithiasis. No solid masses. IMPRESSION: 1. Hepatomegaly with coarsened echotexture suggestive of cirrhosis, stable from priors. Reviewed by: Dao Caba MD on 08/06/2021 8:20 AM [facility] Approved by: Dao Caba MD on 08/06/2021 8:20 AM [facility] Station ID: [id number]
== END 2021-08-06 07:33 | disposition home or self-care (01) ==
LOC: DI 07:32
PROVIDERS: ATTEND Internal Medicine
DX: K70.30 Alcoholic cirrhosis of liver without ascites (principal)

== ENCOUNTER 2021-09-09 08:00 | Outpatient (CLI) | payer BC | END 2021-09-09 23:59 | disposition home or self-care (01) | LOC: LAB.N 08:00 | PROVIDERS: ATTEND Nurse Practitioner | DX: R39.9 Unspecified symptoms and signs involving the genitourinary system (principal) | CPT/HCPCS: 87086; 87181 ==

== ENCOUNTER 2021-09-15 11:28 | Outpatient (CLI) | payer BC ==
[2021-09-15 11:48] LABS: HGB - HEMOGLOBIN 10.1 g/dL (12.0-16.0); MEAN CORPUSCULAR HEMOGLOBIN 29.6 pg (27.0-31.0); MEAN CORPUSCULAR HGB CONC 33.7 g/dL (32.0-36.0); MEAN PLATELET VOLUME 9.4 fL (7.9-10.8); RED BLOOD COUNT 3.41 10^6/uL (4.20-5.40); RED CELL DISTRIBUTION WIDTH 14.5 % (12.0-15.0); WHITE BLOOD COUNT 9.2 x10^3/uL (4.8-10.8)
[2021-09-15 12:06] LABS: CALCIUM 8.9 mg/dL (8.5-10.3); CREATININE 2.7 mg/dL (0.4-1.0); POTASSIUM 4.5 mmol/L (3.5-5.0)
== END 2021-09-15 11:29 | disposition home or self-care (01) ==
LOC: LAB 11:28
PROVIDERS: ATTEND Urology
DX: N05.9 Unspecified nephritic syndrome with unspecified morphologic changes (principal); D70.9 Neutropenia, unspecified; D63.1 Anemia in chronic kidney disease; D50.0 Iron deficiency anemia secondary to blood loss (chronic)
CPT/HCPCS: 36415; 80048; 82728; 83540; 84466; 85027

== ENCOUNTER 2021-09-29 16:45 | Outpatient (CLI) | payer BC | END 2021-09-29 23:59 | disposition home or self-care (01) | LOC: LAB 16:45 | PROVIDERS: ATTEND Family Medicine | DX: N39.0 Urinary tract infection, site not specified (principal) | CPT/HCPCS: 87086; 87181 ==

== ENCOUNTER 2021-10-10 09:46 | Outpatient (CLI) | payer BC ==
[2021-10-10 10:11] LABS: BASOPHILS # (AUTO) 0.1 10^3/uL (0.0-0.1); BASOPHILS % (AUTO) 0.9 %; EOSINOPHILS # (AUTO) 0.3 10^3/uL (0.0-0.7); EOSINOPHILS % (AUTO) 3.4 %; HGB - HEMOGLOBIN 10.8 g/dL (12.0-16.0); LYMPHOCYTES # (AUTO) 2.3 10^3/uL (1.5-3.5); MEAN CORPUSCULAR HEMOGLOBIN 29.9 pg (27.0-31.0); MEAN CORPUSCULAR HGB CONC 33.8 g/dL (32.0-36.0); MEAN CORPUSCULAR VOLUME 88.6 fL (81.0-99.0); MEAN PLATELET VOLUME 9.3 fL (7.9-10.8); MONOCYTES # (AUTO) 0.6 10^3/uL (0.0-1.0); MONOCYTES % (AUTO) 6.8 %; NEUTROPHILS # (AUTO) 5.5 10^3/uL (1.5-6.6); NEUTROPHILS % (AUTO) 62.3 %; PLT - PLATELET COUNT 259 10^3/uL (130-450); RED BLOOD COUNT 3.61 10^6/uL (4.20-5.40); RED CELL DISTRIBUTION WIDTH 14.1 % (12.0-15.0); WHITE BLOOD COUNT 8.8 x10^3/uL (4.8-10.8)
[2021-10-10 10:27] LABS: BILIRUBIN,URINE NEGATIVE (NEGATIVE); GLUCOSE, URINE (UA) NEGATIVE (NEGATIVE); KETONES,URINE (UA) NEGATIVE (NEGATIVE); LEUKOCYTE ESTERASE, URINE NEGATIVE (NEGATIVE); NITRITE,URINE NEGATIVE (NEGATIVE); OCCULT BLOOD,URINE MODERATE (NEGATIVE); PH,URINE 5.5 PH (5.0-7.5); PROTEIN,URINE 100 mg/dL (NEGATIVE); UROBILINOGEN,URINE 0.2 (NORMAL) E.U./dL (NORMAL)
[2021-10-10 10:29] LABS: ALBUMIN 3.6 g/dL (3.2-5.5); ALBUMIN/GLOBULIN RATIO 0.7 (1.0-2.2); ALKALINE PHOSPHATASE 213 IU/L (42-121); ALT ALANINE AMINOTRANSFERASE 25 IU/L (10-60); AST ASPARTATE AMINOTRANSFERASE 29 IU/L (10-42); BILIRUBIN,TOTAL 0.7 mg/dL (0.2-1.0); BUN - BLOOD UREA NITROGEN 45 mg/dL (6-20); CALCIUM 8.9 mg/dL (8.5-10.3); CARBON DIOXIDE - CO2 24 mmol/L (21-32); CHLORIDE 104 mmol/L (101-111); CHOL/HDL RATIO 3.1 (<4.4); CHOLESTEROL 154 mg/dL; CREATININE 1.9 mg/dL (0.4-1.0); GFR - MDRD 27 (>89); GLUCOSE 138 mg/dL (70-100); HDL CHOLESTEROL 49 mg/dL; LDL CHOLESTEROL,CALCULATED 86 mg/dL; LDL/HDL RATIO 1.8 (<4.4); POTASSIUM 4.6 mmol/L (3.5-5.0); SODIUM 138 mmol/L (135-145); TOTAL PROTEIN 8.7 g/dL (6.7-8.2); TRIGLYCERIDES 97 mg/dL; VLDL CHOLESTEROL 19 mg/dL
[2021-10-10 10:40] LABS: THYROID STIMULATING HORMONE 1.48 uIU/mL (0.34-5.60)
[2021-10-10 10:41] LABS: CLARITY,URINE CLEAR (CLEAR); WBC CLUMPS,URINE PRESENT
[2021-10-10 10:42] LABS: BACTERIA,URINE Few /HPF (None Seen); EPITHELIAL CELLS,UR None Seen /HPF (<= Few); RBC,URINE 0-5 /HPF (0-5); SQUAMOUS EPITHELIAL CELL,UR RARE Squamous (<= Few)
[2021-10-10 12:29] LABS: CREATININE,URINE 49.1 mg/dL; MICROALBUM/CREATININE RATIO,UR 3038.7 ug/mg (<30.0); MICROALBUMIN,URINE 149.2 mg/dL (0-300.0)
[2021-10-10 13:31] LABS: ESTIMATED AVERAGE GLUCOSE 128 mg/dL (70-100); HEMOGLOBIN A1c% 6.1 % (4.27-6.07)
== END 2021-10-10 09:47 | disposition home or self-care (01) ==
LOC: LAB 09:46
PROVIDERS: ATTEND Nurse Practitioner
DX: E11.9 Type 2 diabetes mellitus without complications (principal); E78.5 Hyperlipidemia, unspecified; R53.83 Other fatigue; G62.9 Polyneuropathy, unspecified
CPT/HCPCS: 36415; 80053; 80061; 81001; 82043; 82570; 82607; 83036; 83721; 84443; 85025; 87086

== ENCOUNTER 2022-03-01 07:47 | Outpatient (CLI) | payer OTHER ==
--- NOTE | 2022-03-01 09:19 | Ultrasound Report ---
PROCEDURE: Abdomen Limited INDICATIONS: ALCOHOL CIRRHOSIS TECHNIQUE: Real-time focused scanning was performed of the abdomen, with image documentation. COMPARISON: 08/06/2021 FINDINGS: There is hepatomegaly. Hepatic length is 20.2 cm. Nodular liver contour is noted with coarsely echoge lauro liver parenchymal echotexture. No discrete hepatic lesion is noted. There is no gallstone. No gallbladder wall thickening or pericholecystic fluid. No sonographic Todd 's sign. There is no intrahepatic ductal dilatation. Common bile duct measures up to 4.2 mm in diameter and is within normal limits. Visualized portion of pancreas shows no gross abnormality. Right kidney measures 11.7 cm in length and 1.6 cm in renal cortical thickness. No hydronephrosis or nephrolithiasis. IMPRESSION: 1. Hepatomegaly and coarsely echogenic liver parenchyma with nodular contour consistent with cirrhosi s. No discrete hepatic lesion. 2. Normal-appearing gallbladder. No biliary ductal dilatation. Reviewed by: Chaz Pablo MD on 03/01/2022 9:18 AM PDT Approved by: Chaz Pablo MD on 03/01/2022 9:18 AM PDT Station ID: [id number]
== END 2022-03-01 07:48 | disposition home or self-care (01) ==
LOC: DI 07:47
PROVIDERS: ATTEND Internal Medicine
DX: K70.30 Alcoholic cirrhosis of liver without ascites (principal)

== ENCOUNTER 2022-05-11 10:05 | Outpatient (CLI) | payer OTHER ==
[2022-05-11 10:21] LABS: BASOPHILS # (AUTO) 0.1 10^3/uL (0.0-0.1); BASOPHILS % (AUTO) 0.9 %; EOSINOPHILS # (AUTO) 0.3 10^3/uL (0.0-0.7); EOSINOPHILS % (AUTO) 2.8 %; HCT - HEMATOCRIT 32.3 % (37.0-47.0); HGB - HEMOGLOBIN 10.9 g/dL (12.0-16.0); LYMPHOCYTES % (AUTO) 22.1 %; MEAN CORPUSCULAR HEMOGLOBIN 29.6 pg (27.0-31.0); MEAN CORPUSCULAR HGB CONC 33.7 g/dL (32.0-36.0); MEAN CORPUSCULAR VOLUME 87.8 fL (81.0-99.0); MEAN PLATELET VOLUME 9.6 fL (7.9-10.8); MONOCYTES # (AUTO) 0.7 10^3/uL (0.0-1.0); MONOCYTES % (AUTO) 7.7 %; NEUTROPHILS # (AUTO) 5.9 10^3/uL (1.5-6.6); NEUTROPHILS % (AUTO) 66.2 %; PLT - PLATELET COUNT 273 10^3/uL (130-450); RED BLOOD COUNT 3.68 10^6/uL (4.20-5.40); RED CELL DISTRIBUTION WIDTH 13.3 % (12.0-15.0); WHITE BLOOD COUNT 8.9 x10^3/uL (4.8-10.8)
[2022-05-11 10:33] LABS: INR 1.4 (0.8-1.2)
[2022-05-11 10:43] LABS: ALBUMIN 3.5 g/dL (3.2-5.5); ALBUMIN/GLOBULIN RATIO 0.7 (1.0-2.2); BILIRUBIN,TOTAL 0.7 mg/dL (0.2-1.0); CALCIUM 8.9 mg/dL (8.5-10.3); POTASSIUM 4.1 mmol/L (3.5-5.0); TOTAL PROTEIN 8.4 g/dL (6.7-8.2)
[2022-05-12 06:11] LABS: AFP SERUM TUMOR MARKER 3.6 ng/mL (0.0-9.2)
== END 2022-05-11 10:06 | disposition home or self-care (01) ==
LOC: LAB 10:05
PROVIDERS: ATTEND Internal Medicine
DX: K70.30 Alcoholic cirrhosis of liver without ascites (principal)
CPT/HCPCS: 36415; 80053; 82105; 82728; 83540; 84466; 85025; 85610; 86015

== ENCOUNTER 2022-05-29 10:45 | Outpatient (CLI) | payer OTHER ==
[2022-05-29 11:28] VITALS: BP 124/78
--- NOTE | 2022-05-29 11:28 | SLEEP CARE CONSULTATION ---
Information from patient questionnaire entered by Gloria Pelletier MA. I have reviewed and concur with the information entered by Gloria Pelletier MA. This document represents the service I personally performed and the decisions made by , Jennifer Vázquez ARNP. History of Present Illness Service Date and Time: 05/29/2022 1045 Previous diagnosis: Moderate, Obstructive Sleep Apnea-Hypopnea Syndrome AHI: 25.4 (in 2018) Reason for follow up: annual (LAST SEEN 04/2021, ARNOLDO, HAYS 02/04/2020, ) Equipment type: CPAP Equipment obtained from: [employer] (getting supplies as needed) Mask style: Nasal (over the nose) Mask brand: Respironics (Liquid [employer] W[employer]) Backup mask available: Yes (old mask) Last cushion change: 2 months ago [facility] Yes [facility] H[facility] additional information: LINNEA RAMIREZ was diagnosed to have moderate, AHI 25.4, obstructive sleep apnea-hypopnea syndrome and returned today for CPAP therapy annual follow-up. Sleep Study - Results Prior sleep studies: Yes [facility] Compliance Data - Data Reviewed with Patient Average duration of nightly device use: 8 HOURS 51 MINUTES Compliance rate %: 97.8 (02/27/22-05/27/22; 88/90 days used) Current pressure setting (cmH2O): 8-12 Humidity settin Heated hose setting: OFF Average residual AHI: 1.3 Average large leak: 3 SEC Subjective Missed days of use due to: reports: other (power outage) Patient concerns: denies: aerophagia, mask discomfort, air blowing in eyes, mask leak noise, condensation in mask/hose, nasal congestion, dry mouth, nose, throat, epistaxis, other Observed to snore while using device: No Current pressure setting perceived as: comfortable On therapy, patient: reports: sleeping better, awakening more refreshed, being more awake and alert during the day, more rested overall. denies: drowsiness while driving Initial [place] Sleepiness Scale score: 19 (in 2019) Current [place] Sleepiness Scale score: 9 (05/29/22) Allergies and Home Medications Known drug allergies: Yes (PNC, KAFLIN) Home medication list reviewed: Yes (Jardiance to be started; Furosemide reducing 1 pill) Allergy and home medication list: Allergies cephalexin Allergy (Verified 02/04/21 18:11) Unknown Penicillins Adverse Reaction (Intermediate, Verified 02/04/21 18:11) Nausea Review of Systems Review of systems same as previous: Yes (no changes) Physical Exam Vital signs obtained and entered by: Maria Fernanda PELLETIER CMA AAIVETH Blood Pressure: 124/78 (RESP 16, PULSE 68, RIGHT) Cuff size: wrist Heart Rate: 68 O2 Saturation: 97 (PAPER MASK) Height: 5 ft Weight: 196 lb (CLOTHES) Body Mass Index: 38.2 BMI Classification: Obese Impression and Plan 1. Obstructive Sleep Apnea-Hypopnea Syndrome, moderate, with good treatment compliance and good apnea control. On CPAP therapy, the patient has better sleep quality and is more rested overall. Patient has significant improvement of her sleep apnea and is satisfied with current CPAP therapy. Patient denies problems with oral dryness, nasal congestion, epistaxis, skin irritation or aerophagia. Patient's apnea severity and rationale for treatment to reduce apnea, improve sleep quality and reduce cardiovascular and cerebrovascular events was reviewed. I also reviewed the benefit of consistent device use of CPAP for hypertension, cardiac disease and diabetes. 2. Obesity, unspecified. Currently patients BMI is 38.2. Obesity increases the risk of apnea, CPAP pressure requirements and overall health risks especially cardiovascular and diabetes. Thus patient is advised to lose weight. Weight loss can be done with reducing portion size, reducing refined foods and balancing content with vegetables, fruit and whole grain foods. In addition, patient encouraged to get regular exercise. The patient's CPAP pressure range should accommodate some weight loss. Symptoms to report for additional pressure adjustment discussed. * Continue auto CPAP pressure at 8-12 cmH2O * Update supplies * Notify me if snoring with mask or feeling that the pressure is too much or too little * Attempt to lose weight * Call this office if any problems using CPAP * Return for follow up in 1 year, or sooner if concerns arise Counseling Topics: Spare mask, Weight loss health impact Visit Type: In Office Time Spent with Patient (minutes): 12 Provider Statement: I spent 100% of the Face to Face Visit with the patient with greater than 50% spent counseling the patient and coordination of care.
== END 2022-05-29 10:46 | disposition home or self-care (01) ==
LOC: SC 10:45
PROVIDERS: ATTEND Nurse Practitioner Family
DX: G47.33 Obstructive sleep apnea (adult) (pediatric) (principal); E66.9 Obesity, unspecified; Z68.38 Body mass index [BMI] 38.0-38.9, adult
CPT/HCPCS: 99212

== ENCOUNTER 2022-08-01 14:56 | Outpatient (CLI) | payer OTHER | END 2022-08-01 14:57 | disposition home or self-care (01) | LOC: DI 14:56 | PROVIDERS: ATTEND Internal Medicine Cardiovascular Disease | DX: I50.32 Chronic diastolic (congestive) heart failure (principal) | CPT/HCPCS: 93306 ==

== ENCOUNTER 2022-09-21 09:36 | Outpatient (CLI) | payer OTHER ==
[2022-09-21 09:56] LABS: BASOPHILS # (AUTO) 0.1 10^3/uL (0.0-0.1); BASOPHILS % (AUTO) 0.8 %; EOSINOPHILS # (AUTO) 0.2 10^3/uL (0.0-0.7); EOSINOPHILS % (AUTO) 1.8 %; HCT - HEMATOCRIT 30.8 % (37.0-47.0); LYMPHOCYTES # (AUTO) 1.7 10^3/uL (1.5-3.5); LYMPHOCYTES % (AUTO) 17.6 %; MEAN CORPUSCULAR HEMOGLOBIN 28.5 pg (27.0-31.0); MEAN CORPUSCULAR HGB CONC 32.5 g/dL (32.0-36.0); MEAN CORPUSCULAR VOLUME 87.7 fL (81.0-99.0); MONOCYTES # (AUTO) 0.8 10^3/uL (0.0-1.0); NEUTROPHILS # (AUTO) 7.1 10^3/uL (1.5-6.6); NEUTROPHILS % (AUTO) 71.4 %; PLT - PLATELET COUNT 269 10^3/uL (130-450); RED BLOOD COUNT 3.51 10^6/uL (4.20-5.40); RED CELL DISTRIBUTION WIDTH 13.3 % (12.0-15.0); WHITE BLOOD COUNT 9.9 x10^3/uL (4.8-10.8)
[2022-09-21 10:19] LABS: % IRON SATURATION 20 % (20-50); ALBUMIN 3.6 g/dL (3.2-5.5); ALBUMIN/GLOBULIN RATIO 0.7 (1.0-2.2); ALKALINE PHOSPHATASE 207 IU/L (42-121); ALT ALANINE AMINOTRANSFERASE 19 IU/L (10-60); AST ASPARTATE AMINOTRANSFERASE 23 IU/L (10-42); BILIRUBIN,TOTAL 0.4 mg/dL (0.2-1.0); BUN - BLOOD UREA NITROGEN 44 mg/dL (6-20); CALCIUM 9.2 mg/dL (8.5-10.3); CARBON DIOXIDE - CO2 20 mmol/L (21-32); CHLORIDE 110 mmol/L (101-111); CHOL/HDL RATIO 3.6 (<4.4); CHOLESTEROL 162 mg/dL; CREATININE 2.1 mg/dL (0.4-1.0); GFR - MDRD 24 (>89); GLUCOSE 153 mg/dL (70-100); HDL CHOLESTEROL 45 mg/dL; IRON 57 ug/dL (28-170); LDL CHOLESTEROL,CALCULATED 93 mg/dL; LDL/HDL RATIO 2.1 (<4.4); MAGNESIUM 1.9 mg/dL (1.7-2.8); POTASSIUM 4.4 mmol/L (3.5-5.0); SODIUM 142 mmol/L (135-145); TOTAL IRON BINDING CAPACITY 281 ug/dL (250-450); TOTAL PROTEIN 8.7 g/dL (6.7-8.2); TRANSFERRIN 201 mg/dL (192-382); TRIGLYCERIDES 119 mg/dL; VLDL CHOLESTEROL 24 mg/dL
[2022-09-21 10:30] LABS: THYROID STIMULATING HORMONE 1.94 uIU/mL (0.34-5.60)
[2022-09-21 10:37] LABS: FERRITIN 202.6 ng/mL (11.0-306.8)
[2022-09-21 11:34] LABS: ESTIMATED AVERAGE GLUCOSE 126 mg/dL (70-100)
== END 2022-09-21 09:37 | disposition home or self-care (01) ==
LOC: LAB 09:36
PROVIDERS: ATTEND Physician Assistant Medical
DX: E78.5 Hyperlipidemia, unspecified (principal); E11.9 Type 2 diabetes mellitus without complications; D64.9 Anemia, unspecified; K74.60 Unspecified cirrhosis of liver
CPT/HCPCS: 36415; 80053; 80061; 81599; 82043; 82570; 82607; 82728; 83036; 83540; 83721; 83735; 84443; 84466; 85025

== ENCOUNTER 2022-11-22 09:14 | Outpatient (CLI) | payer OTHER ==
[2022-11-22 09:43] LABS: BASOPHILS # (AUTO) 0.1 10^3/uL (0.0-0.1); BASOPHILS % (AUTO) 1.4 %; EOSINOPHILS # (AUTO) 0.3 10^3/uL (0.0-0.7); EOSINOPHILS % (AUTO) 4.4 %; HCT - HEMATOCRIT 32.4 % (37.0-47.0); HGB - HEMOGLOBIN 10.6 g/dL (12.0-16.0); LYMPHOCYTES # (AUTO) 1.8 10^3/uL (1.5-3.5); MEAN CORPUSCULAR HEMOGLOBIN 28.6 pg (27.0-31.0); MEAN CORPUSCULAR HGB CONC 32.7 g/dL (32.0-36.0); MEAN CORPUSCULAR VOLUME 87.3 fL (81.0-99.0); MEAN PLATELET VOLUME 9.7 fL (7.9-10.8); MONOCYTES # (AUTO) 0.6 10^3/uL (0.0-1.0); MONOCYTES % (AUTO) 8.2 %; NEUTROPHILS # (AUTO) 4.4 10^3/uL (1.5-6.6); NEUTROPHILS % (AUTO) 60.7 %; PLT - PLATELET COUNT 275 10^3/uL (130-450); RED BLOOD COUNT 3.71 10^6/uL (4.20-5.40); RED CELL DISTRIBUTION WIDTH 13.5 % (12.0-15.0); WHITE BLOOD COUNT 7.3 x10^3/uL (4.8-10.8)
[2022-11-22 09:58] LABS: INR 1.3 (0.8-1.2)
[2022-11-22 10:02] LABS: ALBUMIN 3.5 g/dL (3.2-5.5); ALBUMIN/GLOBULIN RATIO 0.7 (1.0-2.2); BILIRUBIN,TOTAL 0.7 mg/dL (0.2-1.0); POTASSIUM 4.3 mmol/L (3.5-5.0); TOTAL PROTEIN 8.5 g/dL (6.7-8.2)
[2022-11-23 07:09] LABS: AFP SERUM TUMOR MARKER 3.5 ng/mL (0.0-9.2)
== END 2022-11-22 09:15 | disposition home or self-care (01) ==
LOC: LAB 09:14
PROVIDERS: ATTEND Internal Medicine
DX: E55.9 Vitamin D deficiency, unspecified (principal); K70.30 Alcoholic cirrhosis of liver without ascites
CPT/HCPCS: 36415; 80053; 82105; 82306; 84630; 85025; 85610

== ENCOUNTER 2022-11-30 06:53 | Outpatient (CLI) | payer OTHER ==
--- NOTE | 2022-11-30 08:54 | Ultrasound Report ---
PROCEDURE: Abdomen Limited INDICATIONS: CIRRHOSIS TECHNIQUE: Real-time focused scanning was performed of the abdomen, with image documentation. COMPARISON: 03/01/2022 FINDINGS: Liver is enlarged and measures 19.8 cm in length. Heterogeneously echogenic liver parenchyma is seen with nodular liver contour. Normal hepatopedal flow is seen in patent right and left portal veins and main portal vein. Normal hepatofugal flow is seen in all visualized hepatic veins. No discrete hepat ic lesion is identified. Gallbladder is contracted. No gallstone or gallbladder wall thickening. No cholecystic fluid. No sono graphic Todd's sign. There is no intrahepatic biliary ductal dilatation. Common bile duct measures 4.3 mm in diameter and is within normal limits. No gross abnormality is seen in partially visualized pancreas. Right kidney measures 11.4 cm in length and 0.8 cm in renal cortical thickness. No hydronephrosis or hydroureter. No solid-appearing renal lesion. IVC is visualized and is patent. No peritoneal free fluid. IMPRESSION: 1. Cirrhotic appearing liver. No discrete hepatic lesion. Normal directions of flow are seen in hepat ic veins and portal veins. 2. Normal-appearing mildly contracted gallbladder. No evidence of acute cholecystitis. No biliary armando minda dilatation. Reviewed by: Chaz Pablo MD on 11/30/2022 8:53 AM PST Approved by: Chaz Pablo MD on 11/30/2022 8:53 AM PST Station ID: [id number]
== END 2022-11-30 06:54 | disposition home or self-care (01) ==
LOC: DI 06:53
PROVIDERS: ATTEND Internal Medicine
DX: K70.30 Alcoholic cirrhosis of liver without ascites (principal)

== ENCOUNTER 2023-01-23 10:11 | Outpatient (CLI) | payer OTHER | END 2023-01-23 10:12 | disposition home or self-care (01) | LOC: LAB 10:11 | PROVIDERS: ATTEND Internal Medicine | DX: E55.9 Vitamin D deficiency, unspecified (principal) | CPT/HCPCS: 36415; 82306 ==

== ENCOUNTER 2023-04-19 10:07 | Outpatient (CLI) | payer OTHER ==
[2023-04-19 10:20] LABS: BASOPHILS # (AUTO) 0.1 10^3/uL (0.0-0.1); BASOPHILS % (AUTO) 1.3 %; EOSINOPHILS # (AUTO) 0.2 10^3/uL (0.0-0.7); EOSINOPHILS % (AUTO) 3.1 %; HCT - HEMATOCRIT 32.3 % (37.0-47.0); HGB - HEMOGLOBIN 10.5 g/dL (12.0-16.0); LYMPHOCYTES % (AUTO) 27.3 %; MEAN CORPUSCULAR HEMOGLOBIN 28.2 pg (27.0-31.0); MEAN CORPUSCULAR HGB CONC 32.5 g/dL (32.0-36.0); MEAN CORPUSCULAR VOLUME 86.8 fL (81.0-99.0); MEAN PLATELET VOLUME 9.9 fL (7.9-10.8); MONOCYTES # (AUTO) 0.7 10^3/uL (0.0-1.0); MONOCYTES % (AUTO) 9.6 %; NEUTROPHILS # (AUTO) 4.4 10^3/uL (1.5-6.6); NEUTROPHILS % (AUTO) 58.4 %; PLT - PLATELET COUNT 275 10^3/uL (130-450); RED BLOOD COUNT 3.72 10^6/uL (4.20-5.40); RED CELL DISTRIBUTION WIDTH 12.8 % (12.0-15.0); WHITE BLOOD COUNT 7.5 x10^3/uL (4.8-10.8)
[2023-04-19 10:31] LABS: ALBUMIN 3.5 g/dL (3.2-5.5); ALBUMIN/GLOBULIN RATIO 0.7 (1.0-2.2); BILIRUBIN,TOTAL 0.6 mg/dL (0.2-1.0); CALCIUM 8.3 mg/dL (8.5-10.3); CREATININE 2.2 mg/dL (0.4-1.0); POTASSIUM 4.1 mmol/L (3.5-5.0); TOTAL PROTEIN 8.3 g/dL (6.7-8.2)
[2023-04-19 11:33] LABS: ESTIMATED AVERAGE GLUCOSE 223 mg/dL (70-100); HEMOGLOBIN A1c% 9.4 % (4.27-6.07)
== END 2023-04-19 10:08 | disposition home or self-care (01) ==
LOC: LAB 10:07
PROVIDERS: ATTEND Physician Assistant Medical
DX: I12.9 Hypertensive chronic kidney disease with stage 1 through stage 4 chronic kidney disease, or unspecified chronic kidney disease (principal); E11.22 Type 2 diabetes mellitus with diabetic chronic kidney disease; N18.32 Chronic kidney disease, stage 3b
CPT/HCPCS: 36415; 80053; 83036; 85025

== ENCOUNTER 2023-06-12 07:26 | Outpatient (CLI) | payer OTHER ==
[2023-06-12 08:03] LABS: CALCIUM 8.7 mg/dL (8.5-10.3); CREATININE 2.1 mg/dL (0.6-1.3); POTASSIUM 4.3 mmol/L (3.5-4.5)
[2023-06-12 10:49] LABS: ESTIMATED AVERAGE GLUCOSE 203 mg/dL (70-100); HEMOGLOBIN A1c% 8.7 % (4.27-6.07)
== END 2023-06-12 07:27 | disposition home or self-care (01) ==
LOC: LAB 07:26
PROVIDERS: ATTEND Internal Medicine Nephrology
DX: E11.9 Type 2 diabetes mellitus without complications (principal); N05.9 Unspecified nephritic syndrome with unspecified morphologic changes
CPT/HCPCS: 36415; 80048; 83036

== ENCOUNTER 2023-08-22 08:55 | Outpatient (CLI) | payer OTHER ==
[2023-08-22 09:08] LABS: BASOPHILS # (AUTO) 0.1 10^3/uL (0.0-0.1); BASOPHILS % (AUTO) 1.2 %; EOSINOPHILS # (AUTO) 0.3 10^3/uL (0.0-0.7); EOSINOPHILS % (AUTO) 3.4 %; HCT - HEMATOCRIT 30.3 % (37.0-47.0); HGB - HEMOGLOBIN 9.8 g/dL (12.0-16.0); LYMPHOCYTES # (AUTO) 1.7 10^3/uL (1.5-3.5); MEAN CORPUSCULAR HEMOGLOBIN 28.8 pg (27.0-31.0); MEAN CORPUSCULAR HGB CONC 32.3 g/dL (32.0-36.0); MEAN CORPUSCULAR VOLUME 89.1 fL (81.0-99.0); MEAN PLATELET VOLUME 9.9 fL (7.9-10.8); MONOCYTES # (AUTO) 0.7 10^3/uL (0.0-1.0); MONOCYTES % (AUTO) 9.8 %; NEUTROPHILS # (AUTO) 4.8 10^3/uL (1.5-6.6); NEUTROPHILS % (AUTO) 63.3 %; PLT - PLATELET COUNT 238 10^3/uL (130-450); RED CELL DISTRIBUTION WIDTH 13.2 % (12.0-15.0); WHITE BLOOD COUNT 7.6 x10^3/uL (4.8-10.8)
[2023-08-22 09:17] LABS: INR 1.5 (0.8-1.2); PT - PROTHROMBIN TIME 15.9 secs (9.9-12.6)
[2023-08-22 09:21] LABS: ALBUMIN 4.1 g/dL (3.2-5.5); ALBUMIN/GLOBULIN RATIO 1.1 (1.0-2.2); BILIRUBIN,TOTAL 0.4 mg/dL (0.2-1.0); CALCIUM 8.6 mg/dL (8.5-10.3); CREATININE 2.3 mg/dL (0.6-1.3); POTASSIUM 4.7 mmol/L (3.5-4.5); TOTAL PROTEIN 7.9 g/dL (6.4-8.9)
[2023-08-23 07:10] LABS: AFP SERUM TUMOR MARKER 3.3 ng/mL (0.0-9.2); VITAMIN D 25-HYDROXY 18.9 ng/mL (30.0-100.0)
== END 2023-08-22 08:56 | disposition home or self-care (01) ==
LOC: LAB 08:55
PROVIDERS: ATTEND Internal Medicine
DX: E55.9 Vitamin D deficiency, unspecified (principal); K70.30 Alcoholic cirrhosis of liver without ascites
CPT/HCPCS: 36415; 80053; 82105; 82306; 85025; 85610

== ENCOUNTER 2023-09-10 09:18 | Outpatient (CLI) | payer OTHER ==
[2023-09-10 09:50] LABS: CALCIUM 8.6 mg/dL (8.5-10.3); CREATININE 2.3 mg/dL (0.6-1.3); POTASSIUM 5.2 mmol/L (3.5-4.5)
== END 2023-09-10 09:19 | disposition home or self-care (01) ==
LOC: LAB 09:18
PROVIDERS: ATTEND Internal Medicine Nephrology
DX: N05.9 Unspecified nephritic syndrome with unspecified morphologic changes (principal)
CPT/HCPCS: 36415; 80048

== ENCOUNTER 2023-10-09 07:28 | Outpatient (CLI) | payer OTHER ==
--- NOTE | 2023-10-09 16:15 | Ultrasound Report ---
PROCEDURE: Abdomen Limited INDICATIONS: ALCOHOL CIRRHOSIS OF LIVER TECHNIQUE: Real-time focused scanning was performed of the abdomen, with image documentation. COMPARISONS: Ultrasound abdomen 11/30/2022 FINDINGS: Liver: Liver is enlarged measuring 18.1 cm with coarsened echotexture. Gallbladder: Unremarkable. Biliary ducts: Intrahepatic bile ducts are non-dilated. Extrahepatic bile duct caliber measures 4.9 mm. Normal is 6-7 mm or less in diameter, or 10 mm or less post-cholecystectomy. Pancreas: Visualized portions of the pancreas are sonographically normal. Right kidney: Normal in size and echotexture. Right kidney measures 11.9 cm long. No hydronephrosis or nephrolithiasis. No solid masses. No complex renal cystic lesions which require follow-up. Aorta: Visualized aorta is normal in caliber at less than 3 cm. IVC: Intrahepatic inferior vena cava is patent. Miscellaneous: No free abdominal fluid. IMPRESSION: Enlarged coarsened appearance of the liver relatively unchanged. No focal mass. Reviewed by: Katia Mills MD on 10/09/2023 4:14 PM [facility] Approved by: Katia Mills MD on 10/09/2023 4:14 PM PST Station ID: [id number]
== END 2023-10-09 07:29 | disposition home or self-care (01) ==
LOC: DI 07:28
PROVIDERS: ATTEND Internal Medicine
DX: K70.30 Alcoholic cirrhosis of liver without ascites (principal); R16.0 Hepatomegaly, not elsewhere classified

== ENCOUNTER 2023-11-30 08:00 | Outpatient (CLI) | payer OTHER | END 2023-11-30 23:59 | disposition home or self-care (01) | LOC: LAB.N 08:00 | PROVIDERS: ATTEND Physician Assistant Medical | DX: N30.01 Acute cystitis with hematuria (principal) | CPT/HCPCS: 87086; 87181 ==

== ENCOUNTER 2023-12-15 07:42 | Emergency (ER) | payer OTHER ==
[2023-12-15 08:16] LABS: BILIRUBIN,URINE NEGATIVE (NEGATIVE); CLARITY,URINE CLOUDY (CLEAR); GLUCOSE, URINE (UA) 250 mg/dL (NEGATIVE); KETONES,URINE (UA) NEGATIVE (NEGATIVE); LEUKOCYTE ESTERASE, URINE MODERATE (NEGATIVE); NITRITE,URINE NEGATIVE (NEGATIVE); OCCULT BLOOD,URINE LARGE (NEGATIVE); PROTEIN,URINE 100 mg/dL (NEGATIVE); UROBILINOGEN,URINE 0.2 (NORMAL) E.U./dL (NORMAL)
--- NOTE | 2023-12-15 08:22 | ED Physician Documentation ---
PD HPI FEMALE - Stated complaint Stated Complaint: FEMALE - Chief complaint Chief Complaint: Abd Pain - History obtained from History obtained from: Patient - History of Present Illness Timing - onset: Yesterday Timing - duration: Days (1) Timing - details: Abrupt onset, Still present Associated symptoms: Dysuria, Urinary frequency. No: Vaginal discharge, Genital sore/lesion Similar symptoms before: Diagnosis (had similar just 2 weeks ago and was Rx Bactrim for 5 days. Improved but now recurrent symptoms.) Recently seen: Clinic (2 weeks ago) Review of Systems Constitutional: denies: Fever, Chills GI: denies: Nausea, Vomiting : reports: Dysuria, Frequency. denies: Discharge Musculoskeletal: denies: Back pain PD PAST MEDICAL HISTORY - Past Medical History Cardiovascular: Hypertension, High cholesterol Respiratory: Sleep apnea, CPAP use Neuro: Peripheral neuropathy Endocrine/Autoimmune: Type 2 diabetes GI: Cirrhosis : Renal insuffiency HEENT: Chronic vision loss Psych: None Musculoskeletal: Chronic back pain, Other Derm: None - Past Surgical History Past Surgical History: No - Present Medications Home Medications: Ambulatory Orders Medication Instructions Recorded Confirmed Metoprolol Tartrate [Lopressor] 50 mg PO BID #20 tablet 05/30/19 11/24/21 Furosemide [Lasix] 20 mg PO DAILY #14 tablet 02/04/21 11/24/21 amLODIPine [Norvasc] 5 mg PO DAILY 02/04/21 11/24/21 Ciprofloxacin HCl [Cipro] 500 mg PO BID #14 tablet 12/15/23 Phenazopyridine HCl [Pyridium] 100 mg PO TID PRN #12 tablet 12/15/23 - Allergies Allergies/Adverse Reactions: Allergies Allergy/AdvReac Type Severity Reaction Status Date / Time cephalexin Allergy Unknown Verified 02/04/21 18:11 Penicillins AdvReac Intermediate Nausea Verified 02/04/21 18:11 - Social History Does the pt smoke?: Yes Smoking Status: Current every day smoker Does the pt drink ETOH?: No Does the pt have substance abuse?: No - POLST Patient has POLST: No POLST Status: Full Code PD ED PE NORMAL - Vitals Vital signs reviewed: Yes - General General: Alert and oriented X 3, No acute distress, Well developed/nourished - Female Female : Deferred - Back Back: No CVA TTP - Derm Derm: Normal color, Warm and dry Results - Vitals Vitals: Vital Signs - 24 hr 12/15/23 12/15/23 07:50 08:41 Temperature 36.1 C L Heart Rate 108 H 94 Respiratory 16 16 Rate Blood Pressure 175/74 H 168/76 H O2 Saturation 97 98 Oxygen O2 Source Room air - Labs Labs: Laboratory Tests 12/15/23 08:05 Urine Color YELLOW Urine Clarity CLOUDY Urine pH 6.0 Ur Specific Hammond 1.015 Urine Protein 100 H Urine Glucose (UA) 250 H Urine Ketones NEGATIVE Urine Occult Blood LARGE H Urine Nitrite NEGATIVE Urine Bilirubin NEGATIVE Urine Urobilinogen 0.2 (NORMAL) Ur Leukocyte Esterase MODERATE H Urine RBC TNTC H Urine WBC >25 H Ur Squamous Epith Cells RARE Squamous Urine Bacteria Few Ur Microscopic Review INDICATED Urine Culture Comments INDICATED PD Medical Decision Making - ED course Complexity details: reviewed results, considered differential (has dysuria and UTI sympotms with UA c/w UTI. Had this 2 weeks ago with culture showing e. coli pansensitive. Allergy to Cephelexin and PCN, so will Rx Cipro. ), d/w patient Departure - Departure Disposition: 01 Home, Self Care Clinical Impression: Recurrent UTI (urinary tract infection) Condition: Stable Record reviewed to determine appropriate education?: Yes Instructions: ED UTI Cystitis Female Follow-Up: Keri Ochoa PA-C [Primary Care Provider] - Prescriptions: Ciprofloxacin HCl [Cipro] 500 mg PO BID #14 tablet Phenazopyridine HCl [Pyridium] 100 mg PO TID PRN #12 tablet PRN Reason: Abdominal Pain Comments: Your urine sample today looks like an infection again. This would be not too unusual to have incomplete clearing of the infection and have it recur. Follow- up with your primary care if it does not fully resolve begin with the second go of antibiotics. You can treat the symptoms initially with phenazopyridine to help with some of the urinary discomfort and Tylenol if needed for pains or discomfort as well. Avoid NSAIDs. Cipro antibiotic twice daily as directed. I chose this antibiotic as a segue off of your urine culture couple of weeks ago. That culture did show the sulfa should have been appropriate and covered the infection which is seem to initially. You are allergic to cephalexin and penicillin so avoiding that. The bacteria from 2 weeks ago were sensitive to Cipro so we will choose that one at this point. Will call you if the culture from today ends up showing a different resistance pattern or bacteria. I sent your prescriptions to [facility] pharmacy in [place]. Forms: PCP List Discharge Date/Time: 12/15/23 08:42
[2023-12-15 08:29] LABS: BACTERIA,URINE Few /HPF (None Seen); RBC,URINE TNTC /HPF (0-5); SQUAMOUS EPITHELIAL CELL,UR RARE Squamous (<= Few); WBC,URINE >25 /HPF (0-5)
[2023-12-15] MEDS: CIPROFLOXACIN 250 MG TABLET PO STA (08:38)
[2023-12-15] MEDS: PHENAZOPYRIDINE 100 MG TABLET PO STA (08:39)
[2023-12-15 08:42] VITALS: BP 168/76; O2SAT 98
== END 2023-12-15 08:42 | disposition home or self-care (01) ==
LOC: ED 07:42
DX: N39.0 Urinary tract infection, site not specified (principal); I10 Essential (primary) hypertension; E78.00 Pure hypercholesterolemia, unspecified; G47.30 Sleep apnea, unspecified; E11.9 Type 2 diabetes mellitus without complications; K74.60 Unspecified cirrhosis of liver; F17.200 Nicotine dependence, unspecified, uncomplicated
CPT/HCPCS: 81001; 87086; 87181; 99283; A9270; 81003

== ENCOUNTER 2024-01-07 09:40 | Outpatient (CLI) | payer OTHER ==
[2024-01-07 09:50] LABS: HCT - HEMATOCRIT 31.1 % (37.0-47.0); HGB - HEMOGLOBIN 10.1 g/dL (12.0-16.0); MEAN CORPUSCULAR HEMOGLOBIN 29.5 pg (27.0-31.0); MEAN CORPUSCULAR HGB CONC 32.5 g/dL (32.0-36.0); MEAN CORPUSCULAR VOLUME 90.9 fL (81.0-99.0); MEAN PLATELET VOLUME 9.7 fL (7.9-10.8); RED BLOOD COUNT 3.42 10^6/uL (4.20-5.40); RED CELL DISTRIBUTION WIDTH 13.4 % (12.0-15.0); WHITE BLOOD COUNT 6.1 x10^3/uL (4.8-10.8)
[2024-01-07 10:09] LABS: CREATININE 2.3 mg/dL (0.6-1.3); POTASSIUM 4.8 mmol/L (3.5-4.5)
== END 2024-01-07 09:41 | disposition home or self-care (01) ==
LOC: LAB 09:40
PROVIDERS: ATTEND Internal Medicine Nephrology
DX: E11.9 Type 2 diabetes mellitus without complications (principal); N05.9 Unspecified nephritic syndrome with unspecified morphologic changes; D70.9 Neutropenia, unspecified; D63.1 Anemia in chronic kidney disease
CPT/HCPCS: 36415; 80048; 85027

== ENCOUNTER 2024-01-10 19:09 | Emergency (ER) | payer OTHER ==
--- NOTE | 2024-01-10 19:41 | ED Physician Documentation ---
History of Present Illness - Stated complaint Stated Complaint: HIGH BP - Chief complaint Chief Complaint: Cardiac - History obtained from History obtained from: Patient - Additonal information Additional information: 58-year-old woman with CKD and history of hypertension. She is maintained on amlodipine 5 mg a day, Coreg 6.25 mg twice a day, and losartan for her blood pressure. She recently ran out of her Jardiance early and has had trouble getting a new prescription at the pharmacy and since then she has had higher than normal blood pressures. She denies chest pain or trouble breathing. PD PAST MEDICAL HISTORY - Past Medical History Past Medical History: Yes Cardiovascular: Hypertension, High cholesterol Respiratory: Sleep apnea, CPAP use Neuro: Peripheral neuropathy Endocrine/Autoimmune: Type 2 diabetes GI: Cirrhosis : Renal insuffiency HEENT: Chronic vision loss Psych: None Musculoskeletal: Chronic back pain, Other Derm: None - Past Surgical History Past Surgical History: No - Present Medications Home Medications: Ambulatory Orders Medication Instructions Recorded Confirmed Metoprolol Tartrate [Lopressor] 50 mg PO BID #20 tablet 05/30/19 11/24/21 Furosemide [Lasix] 20 mg PO DAILY #14 tablet 02/04/21 11/24/21 amLODIPine [Norvasc] 5 mg PO DAILY 02/04/21 11/24/21 Ciprofloxacin HCl [Cipro] 500 mg PO BID #14 tablet 12/15/23 Phenazopyridine HCl [Pyridium] 100 mg PO TID PRN #12 tablet 12/15/23 Empagliflozin [Jardiance] 10 mg PO DAILY #90 tablet 01/10/24 - Allergies Allergies/Adverse Reactions: Allergies Allergy/AdvReac Type Severity Reaction Status Date / Time cephalexin Allergy Unknown Verified 01/10/24 19:26 Penicillins AdvReac Intermediate Nausea Verified 01/10/24 19:26 - Social History Does the pt smoke?: Yes Smoking Status: Current every day smoker Does the pt drink ETOH?: No Does the pt have substance abuse?: No - Immunizations Immunizations are current?: Yes - POLST Patient has POLST: No POLST Status: Full Code PD ED PE NORMAL - Vitals Vital signs reviewed: Yes - General General: Alert and oriented X 3, No acute distress - Cardiac Cardiac: RRR, No murmur - Respiratory Respiratory: No respiratory distress, Clear bilaterally - Abdomen Abdomen: Non tender - Extremities Extremities: No edema, No calf tenderness / cord - Neuro Neuro: Alert and oriented X 3, Normal speech Results - Vitals Vitals: Vital Signs - 24 hr 01/10/24 01/10/24 19:23 20:06 Temperature 36.7 C Heart Rate 59 L 64 Respiratory 16 17 Rate Blood Pressure 176/68 H 187/89 H O2 Saturation 99 98 Oxygen O2 Source Room air PD Medical Decision Making - ED course ED course: Review of side effects does show that Jardiance can cause hypotension so being out of it may have raised her blood pressure. Advised to double her amlodipine until she can refill it. Otherwise there is no evidence of emergency medical condition. Departure - Departure Disposition: Home, Self Care Clinical Impression: Hypertension Qualifiers: Hypertension type: primary hypertension Qualified Code(s): I10 - Essential (primary) hypertension Condition: Good Record reviewed to determine appropriate education?: Yes Instructions: ED HTN Established Prescriptions: Empagliflozin [Jardiance] 10 mg PO DAILY #90 tablet Comments: As discussed, Jardiance can cause low blood pressures and therefore being off of it may have raise your blood pressure. I am writing a new prescription for Jardiance, but you should consider doubling your amlodipine to 10 mg a day until you can refill the Jardiance. Return if worse. Forms: PCP List Discharge Date/Time: 01/10/24 20:05
[2024-01-10] MEDS: amLODIPine 5 MG TABLET PO STA (19:57)
[2024-01-10 20:12] VITALS: BP 187/89; O2SAT 98
== END 2024-01-10 20:05 | disposition home or self-care (01) ==
LOC: ED 19:09
DX: I12.9 Hypertensive chronic kidney disease with stage 1 through stage 4 chronic kidney disease, or unspecified chronic kidney disease (principal); E11.22 Type 2 diabetes mellitus with diabetic chronic kidney disease; N18.9 Chronic kidney disease, unspecified; E11.42 Type 2 diabetes mellitus with diabetic polyneuropathy; E78.00 Pure hypercholesterolemia, unspecified; F17.200 Nicotine dependence, unspecified, uncomplicated; Z79.84 Long term (current) use of oral hypoglycemic drugs; Z79.899 Other long term (current) drug therapy
CPT/HCPCS: 99282; 99283; A9270

== ENCOUNTER 2024-02-06 09:22 | Outpatient (CLI) | payer OTHER ==
[2024-02-06 10:08] LABS: ALBUMIN 3.8 g/dL (3.2-5.5); ALBUMIN/GLOBULIN RATIO 0.9 (1.0-2.2); ALKALINE PHOSPHATASE 137 IU/L (42-121); ALT ALANINE AMINOTRANSFERASE 18 IU/L (10-60); AST ASPARTATE AMINOTRANSFERASE 27 IU/L (10-42); BILIRUBIN,TOTAL 0.4 mg/dL (0.2-1.0); BUN - BLOOD UREA NITROGEN 42 mg/dL (6-20); CALCIUM 9.1 mg/dL (8.5-10.3); CARBON DIOXIDE - CO2 19 mmol/L (21-32); CHLORIDE 113 mmol/L (101-111); CHOL/HDL RATIO 4.5 (<4.4); CHOLESTEROL 186 mg/dL; CREATININE 2.2 mg/dL (0.6-1.3); GFR - MDRD 23 (>89); GLUCOSE 116 mg/dL (74-104); HDL CHOLESTEROL 41 mg/dL; LDL CHOLESTEROL,CALCULATED 116 mg/dL; LDL/HDL RATIO 2.8 (<4.4); POTASSIUM 4.7 mmol/L (3.5-4.5); SODIUM 139 mmol/L (135-145); TOTAL PROTEIN 7.9 g/dL (6.4-8.9); TRIGLYCERIDES 143 mg/dL (48-352); VLDL CHOLESTEROL 29 mg/dL
[2024-02-06 10:55] LABS: ESTIMATED AVERAGE GLUCOSE 120 mg/dL (70-100); HEMOGLOBIN A1c% 5.8 % (4.27-6.07)
== END 2024-02-06 09:23 | disposition home or self-care (01) ==
LOC: LAB 09:22
PROVIDERS: ATTEND Physician Assistant Medical
DX: E11.9 Type 2 diabetes mellitus without complications (principal)
CPT/HCPCS: 36415; 80053; 80061; 83036; 83721

== ENCOUNTER 2024-02-15 16:44 | Outpatient (CLI) | payer OTHER ==
[2024-02-15 17:04] LABS: MAGNESIUM 1.9 mg/dL (1.7-2.3)
[2024-02-15 17:10] LABS: CALCIUM 8.5 mg/dL (8.5-10.3); CREATININE 2.6 mg/dL (0.6-1.3); POTASSIUM 4.9 mmol/L (3.5-4.5)
== END 2024-02-15 16:45 | disposition home or self-care (01) ==
LOC: LAB 16:44
PROVIDERS: ATTEND Internal Medicine Cardiovascular Disease
DX: I10 Essential (primary) hypertension (principal)
CPT/HCPCS: 36415; 80048; 83735; 83880

== ENCOUNTER 2024-03-03 11:09 | Outpatient (CLI) | payer OTHER ==
[2024-03-03 11:38] LABS: CALCIUM 8.5 mg/dL (8.5-10.3); CREATININE 2.9 mg/dL (0.6-1.3); POTASSIUM 4.5 mmol/L (3.5-4.5)
== END 2024-03-03 11:10 | disposition home or self-care (01) ==
LOC: LAB 11:09
PROVIDERS: ATTEND Internal Medicine Nephrology
DX: N05.9 Unspecified nephritic syndrome with unspecified morphologic changes (principal); I48.0 Paroxysmal atrial fibrillation; D68.69 Other thrombophilia
CPT/HCPCS: 36415; 80048

== ENCOUNTER 2024-04-07 13:38 | Outpatient (CLI) | payer OTHER ==
[2024-04-07 14:44] LABS: BASOPHILS # (AUTO) 0.1 10^3/uL (0.0-0.1); EOSINOPHILS # (AUTO) 0.2 10^3/uL (0.0-0.7); EOSINOPHILS % (AUTO) 3.3 %; HGB - HEMOGLOBIN 8.3 g/dL (12.0-16.0); LYMPHOCYTES # (AUTO) 1.3 10^3/uL (1.5-3.5); LYMPHOCYTES % (AUTO) 18.9 %; MEAN CORPUSCULAR HEMOGLOBIN 29.5 pg (27.0-31.0); MEAN CORPUSCULAR HGB CONC 31.9 g/dL (32.0-36.0); MEAN CORPUSCULAR VOLUME 92.5 fL (81.0-99.0); MEAN PLATELET VOLUME 9.9 fL (7.9-10.8); MONOCYTES # (AUTO) 0.8 10^3/uL (0.0-1.0); MONOCYTES % (AUTO) 11.8 %; NEUTROPHILS # (AUTO) 4.5 10^3/uL (1.5-6.6); NEUTROPHILS % (AUTO) 64.7 %; PLT - PLATELET COUNT 194 10^3/uL (130-450); RED BLOOD COUNT 2.81 10^6/uL (4.20-5.40); RED CELL DISTRIBUTION WIDTH 13.9 % (12.0-15.0)
[2024-04-07 14:52] LABS: CREATININE 2.6 mg/dL (0.6-1.3); POTASSIUM 5.1 mmol/L (3.5-4.5)
[2024-04-07 15:04] LABS: ESTIMATED AVERAGE GLUCOSE 114 mg/dL (70-100); HEMOGLOBIN A1c% 5.6 % (4.27-6.07)
--- NOTE | 2024-04-07 16:31 | Ultrasound Report ---
PROCEDURE: Renal (Retroperitoneal) INDICATIONS: CKD TECHNIQUE: Real-time scanning was performed of the retroperitoneal organs, with image documentation. COMPARISON: 10/09/2023 FINDINGS: Kidneys: Kidneys are normal in size. Right kidney measures 11.1 cm long; left kidney measures 11.9 cm long. Right renal cortical thickness is 1.1 cm; left renal cortical thickness is 1 cm. No solid masses, hydronephrosis, or nephrolithiasis. The renal cortices demonstrate mild hyperechogenicity an d increased cortical medullary differentiation. There is slight prominence of renal sinus fat. Bladder: Pre-void bladder volume is 72 mL. Post-void residual is 0 mL. Pre-void images demonstrate no intraluminal masses or stones. On pre-void images, bilateral ureteral jets are noted with color Doppler interrogation. (Of note, ureteral jets may not be detectable in up to 25% of cases due to in sufficient differences in specific gravity between ureteral and bladder urine). Miscellaneous: Small amount of chronic abdominal free fluid, presumably related to other systemic dis ease. IMPRESSION: Cortical echogenicity and renal sinus fat prominence are compatible with known chronic medical renal disease. No evidence of obstructive uropathy. Reviewed by: Joanie Bell MD on 04/07/2024 4:29 PM PDT Approved by: Joanie Bell MD on 04/07/2024 4:29 PM PDT Station ID: [id number]
== END 2024-04-07 13:39 | disposition home or self-care (01) ==
LOC: DI 13:38
PROVIDERS: ATTEND Internal Medicine Nephrology
DX: E11.22 Type 2 diabetes mellitus with diabetic chronic kidney disease (principal); N18.4 Chronic kidney disease, stage 4 (severe); N05.9 Unspecified nephritic syndrome with unspecified morphologic changes; N25.81 Secondary hyperparathyroidism of renal origin; D70.9 Neutropenia, unspecified; D63.1 Anemia in chronic kidney disease
CPT/HCPCS: 36415; 80048; 83036; 83970; 84100; 85025

== ENCOUNTER 2024-04-17 09:53 | Outpatient (CLI) | payer OTHER ==
[2024-04-17 10:38] LABS: FERRITIN 95.8 ng/mL (11.0-306.8)
== END 2024-04-17 09:54 | disposition home or self-care (01) ==
LOC: LAB 09:53
PROVIDERS: ATTEND Internal Medicine Nephrology
DX: D51.9 Vitamin B12 deficiency anemia, unspecified (principal); D50.0 Iron deficiency anemia secondary to blood loss (chronic)
CPT/HCPCS: 36415; 82607; 82728; 82746; 83540; 84466

== ENCOUNTER 2024-05-12 09:05 | Outpatient (CLI) | payer OTHER ==
[2024-05-12 09:30] LABS: ALBUMIN 4.2 g/dL (3.2-5.5); ALKALINE PHOSPHATASE 119 IU/L (42-121); ALT ALANINE AMINOTRANSFERASE 12 IU/L (10-60); AST ASPARTATE AMINOTRANSFERASE 17 IU/L (10-42); BILIRUBIN,TOTAL 0.5 mg/dL (0.2-1.0); BUN - BLOOD UREA NITROGEN 63 mg/dL (6-20); CALCIUM 9.2 mg/dL (8.5-10.3); CARBON DIOXIDE - CO2 21 mmol/L (21-32); CHLORIDE 109 mmol/L (101-111); CHOLESTEROL 116 mg/dL; CREATININE 2.6 mg/dL (0.6-1.3); GFR - MDRD 19 (>89); GLUCOSE 112 mg/dL (74-104); HDL CHOLESTEROL 39 mg/dL; LDL CHOLESTEROL,CALCULATED 58 mg/dL; LDL/HDL RATIO 1.5 (<4.4); POTASSIUM 5.2 mmol/L (3.5-4.5); SODIUM 137 mmol/L (135-145); TOTAL PROTEIN 8.6 g/dL (6.4-8.9); TRIGLYCERIDES 96 mg/dL; VLDL CHOLESTEROL 19 mg/dL
== END 2024-05-12 09:06 | disposition home or self-care (01) ==
LOC: LAB 09:05
PROVIDERS: ATTEND Physician Assistant Medical
DX: E78.5 Hyperlipidemia, unspecified (principal)
CPT/HCPCS: 36415; 80053; 80061; 83721

== ENCOUNTER 2024-05-22 09:38 | Outpatient (CLI) | payer OTHER ==
[2024-05-22 09:48] LABS: BASOPHILS # (AUTO) 0.1 10^3/uL (0.0-0.1); BASOPHILS % (AUTO) 0.9 %; EOSINOPHILS # (AUTO) 0.2 10^3/uL (0.0-0.7); EOSINOPHILS % (AUTO) 2.5 %; HCT - HEMATOCRIT 25.5 % (37.0-47.0); HGB - HEMOGLOBIN 8.1 g/dL (12.0-16.0); LYMPHOCYTES # (AUTO) 1.2 10^3/uL (1.5-3.5); LYMPHOCYTES % (AUTO) 16.2 %; MEAN CORPUSCULAR HEMOGLOBIN 29.5 pg (27.0-31.0); MEAN CORPUSCULAR HGB CONC 31.8 g/dL (32.0-36.0); MEAN CORPUSCULAR VOLUME 92.7 fL (81.0-99.0); MEAN PLATELET VOLUME 9.6 fL (7.9-10.8); MONOCYTES # (AUTO) 0.7 10^3/uL (0.0-1.0); MONOCYTES % (AUTO) 9.7 %; NEUTROPHILS # (AUTO) 5.3 10^3/uL (1.5-6.6); NEUTROPHILS % (AUTO) 70.4 %; PLT - PLATELET COUNT 188 10^3/uL (130-450); RED BLOOD COUNT 2.75 10^6/uL (4.20-5.40); RED CELL DISTRIBUTION WIDTH 13.6 % (12.0-15.0); WHITE BLOOD COUNT 7.5 x10^3/uL (4.8-10.8)
[2024-05-22 10:19] LABS: CALCIUM 9.2 mg/dL (8.5-10.3); CREATININE 2.1 mg/dL (0.6-1.3); POTASSIUM 5.1 mmol/L (3.5-4.5)
== END 2024-05-22 09:39 | disposition home or self-care (01) ==
LOC: LAB 09:38
PROVIDERS: ATTEND Internal Medicine Nephrology
DX: E11.9 Type 2 diabetes mellitus without complications (principal); N05.9 Unspecified nephritic syndrome with unspecified morphologic changes; D70.9 Neutropenia, unspecified; D63.1 Anemia in chronic kidney disease
CPT/HCPCS: 36415; 80048; 85025

== ENCOUNTER 2024-06-30 08:49 | Outpatient (CLI) | payer OTHER ==
--- NOTE | 2024-06-30 16:29 | Ultrasound Report ---
PROCEDURE: Abdomen Limited INDICATIONS: CIRRHOSIS TECHNIQUE: Real-time focused scanning was performed of the abdomen, with image documentation. COMPARISONS: None. FINDINGS: Liver: Liver is normal in size. Heterogeneously coarse liver parenchymal echotexture is seen. No dis crete hepatic lesion. Gallbladder: No gallstones, sludge, wall thickening or pericholecystic edema. Biliary ducts: Intrahepatic bile ducts are non-dilated. Extrahepatic bile duct caliber measures 4.3 mm. Normal is 6-7 mm or less in diameter, or 10 mm or less post-cholecystectomy. Pancreas: Visualized portions of the pancreas are sonographically normal. Right kidney: Normal in size and echotexture. Right kidney measures 10.9 cm long. No hydronephrosis or nephrolithiasis. No solid masses. Simple cyst is seen in midpole right kidney measures 7 x 5 x 5 mm in size. No complex renal cystic lesions which require follow-up. IVC: Intrahepatic inferior vena cava is patent. Miscellaneous: No free abdominal fluid. IMPRESSION: 1. Coarsely echogenic liver parenchyma suggestive of hepatic steatosis. No discrete hepatic lesion. 2. Normal-appearing gallbladder. No biliary ductal dilatation. 3. Normal-appearing visualized portion of pancreas. 4. Simple right renal cyst as above. No hydronephrosis or solid appearing renal lesion. Reviewed by: Chaz Winkler MD on 06/30/2024 4:28 PM PDT Approved by: Chaz Winkler MD on 06/30/2024 4:28 PM PDT Station ID: [id number]
== END 2024-06-30 08:50 | disposition home or self-care (01) ==
LOC: DI 08:49
PROVIDERS: ATTEND Internal Medicine
DX: K74.69 Other cirrhosis of liver (principal); N28.1 Cyst of kidney, acquired; N39.0 Urinary tract infection, site not specified; E11.9 Type 2 diabetes mellitus without complications; D70.9 Neutropenia, unspecified; N05.9 Unspecified nephritic syndrome with unspecified morphologic changes; D63.1 Anemia in chronic kidney disease
CPT/HCPCS: 36415; 80048; 85025; 87086

== ENCOUNTER 2024-06-30 09:16 | Outpatient (CLI) | payer OTHER ==
[2024-06-30 09:24] LABS: BASOPHILS # (AUTO) 0.1 10^3/uL (0.0-0.1); EOSINOPHILS # (AUTO) 0.2 10^3/uL (0.0-0.7); EOSINOPHILS % (AUTO) 3.2 %; HCT - HEMATOCRIT 26.6 % (37.0-47.0); HGB - HEMOGLOBIN 8.2 g/dL (12.0-16.0); LYMPHOCYTES # (AUTO) 1.4 10^3/uL (1.5-3.5); LYMPHOCYTES % (AUTO) 20.1 %; MEAN CORPUSCULAR HGB CONC 30.8 g/dL (32.0-36.0); MEAN PLATELET VOLUME 9.1 fL (7.9-10.8); MONOCYTES # (AUTO) 0.7 10^3/uL (0.0-1.0); MONOCYTES % (AUTO) 10.1 %; NEUTROPHILS # (AUTO) 4.4 10^3/uL (1.5-6.6); NEUTROPHILS % (AUTO) 65.2 %; PLT - PLATELET COUNT 192 10^3/uL (130-450); RED BLOOD COUNT 2.83 10^6/uL (4.20-5.40); RED CELL DISTRIBUTION WIDTH 13.3 % (12.0-15.0); WHITE BLOOD COUNT 6.8 x10^3/uL (4.8-10.8)
[2024-06-30 10:05] LABS: CALCIUM 8.9 mg/dL (8.5-10.3); CREATININE 2.2 mg/dL (0.6-1.3); POTASSIUM 5.2 mmol/L (3.5-4.5)
== END 2024-06-30 09:17 | disposition home or self-care (01) ==
LOC: LAB 09:16
PROVIDERS: ATTEND Internal Medicine Nephrology
DX: E11.9 Type 2 diabetes mellitus without complications (principal); N05.9 Unspecified nephritic syndrome with unspecified morphologic changes; D70.9 Neutropenia, unspecified; D63.1 Anemia in chronic kidney disease
CPT/HCPCS: 36415; 80048; 85025

== ENCOUNTER 2024-06-30 10:30 | Outpatient (CLI) | payer OTHER | END 2024-06-30 10:31 | disposition home or self-care (01) | LOC: LAB.N 10:30 | PROVIDERS: ATTEND Nurse Practitioner | DX: N39.0 Urinary tract infection, site not specified (principal) | CPT/HCPCS: 87086 ==

== ENCOUNTER 2024-07-02 09:56 | Outpatient (CLI) | payer OTHER ==
--- NOTE | 2024-07-03 08:01 | Mammography Report ---
BILATERAL DIGITAL SCREENING MAMMOGRAM 3D/2D: 07/02/2024 CLINICAL: Routine screening. Comparison is made to exams dated: 10/04/2022 mammogram and [facility] There are scattered areas of fibroglandular density in both breasts (category b / 25%-50% glandular t issue). There are benign vascular calcifications in both breasts. No significant masses, calcifications, or other findings are seen in either breast. There has been no significant interval change. IMPRESSION: BENIGN There is no mammographic evidence of malignancy. A 1 year screening mammogram is recommended. Based on the Tyrer Cuzick model (a risk assessment model) the patient's lifetime risk is 7.8% and her 10 year risk is 2.9%. According to the ACR, ACS, and NCCN guidelines, an annual breast MRI exam joseline g with mammogram is recommended if the patient's lifetime risk is 20% or greater. This exam was interpreted at Station ID: [id number]. NOTE: For mammograms, a report in lay terms will be sent to the patient. Approximately 15% of breast malignancies will not be visualized mammographically. In the management of a palpable breast mass, a negative mammogram must not discourage biopsy of a clinically suspicious lesion. Electronically Signed By: Davonte buchanan/sona:07/02/2024 12:48:57 letter sent: No_Letter ACR BI-RADS Category 2: Benign Finding(s) 3342F PARENCHYMAL PATTERN: (A) - The breast(s) demonstrate(s) scattered fibroglandular densities. BI-RADS CATEGORY: (2) - 2 RECOMMENDATION: (ANNUAL) - Recommend routine annual screening mammography. [id number] 1 year screening LATERALITY: (B)
== END 2024-07-02 09:57 | disposition home or self-care (01) ==
LOC: DI 09:56
DX: Z12.31 Encounter for screening mammogram for malignant neoplasm of breast (principal); R92.323 Mammographic fibroglandular density, bilateral breasts

== ENCOUNTER 2024-07-03 09:03 | Outpatient (CLI) | payer OTHER ==
--- NOTE | 2024-07-03 09:32 | Sleep Patient Instructions ---
Sleep Center Visit Summary - Patient Visit Information Reason for Visit: Annual follow-up - Patient Instructions Additional Instructions: You will continue with CPAP therapy with pressure set at 8-12 cmH2O. A supply prescription will be updated with your DME supplier. We encourage you to continue to try to lose weight. Please follow up with the sleep care office in 1 year. - Clinic Information Contact: [facility] [address] [place] [address] [email or web address] T: [phone]
--- NOTE | 2024-07-03 09:34 | SLEEP CARE CONSULTATION ---
Information from patient questionnaire entered by Candido Sanon. I have reviewed and concur with the information entered by Candido Sanon. This document represents the service I personally performed and the decisions made by , Jennifer Vázquez ARNP. History of Present Illness Service Date and Time: 07/03/2024 0903 Previous diagnosis: Moderate, Obstructive Sleep Apnea-Hypopnea Syndrome AHI: 25.4 (in 2019) Reason for follow up: annual (Last seen 05/2022) Equipment type: CPAP (Dreamstation 2) Equipment obtained from: Other ([email or web address]) Mask style: Nasal (over the nose) Backup mask available: Yes (old mask) Last cushion change: 1 month [facility]: [facility] Type [facility]: Pol[facility]omnography HPI additional information: LINNEA RAMIREZ was diagnosed to have moderate, AHI 25.4, obstructive sleep apnea-hypopnea syndrome and returned today for CPAP therapy annual follow-up. Sleep Study - Results Prior sleep studies: Yes [facility] Compliance Data - Data Reviewed with Patient Average duration of nightly device use: 9 h 33 min Compliance rate %: 100 (180/180 days used) Current pressure setting (cmH2O): 8-12 Humidity settin Heated hose setting: Off Average residual AHI: 3.3 Central apnea: 0.2 Obstructive apnea: 0.4 Hypopnea: 2.7 Average large leak: 35 secs Subjective Patient concerns: denies: aerophagia, mask discomfort, air blowing in eyes, mask leak noise, condensation in mask/hose, nasal congestion, dry mouth, nose, throat, epistaxis Observed to snore while using device: No Current pressure setting perceived as: comfortable On therapy, patient: reports: sleeping better, awakening more refreshed, being more awake and alert during the day, more rested overall. denies: drowsiness while driving Initial [place] Sleepiness Scale score: 19 (in 2019) Current [place] Sleepiness Scale score: 4 (07/03/24) Allergies and Home Medications Known drug allergies: Yes (Penicillin, Ceflex) Drug allergies reviewed: Yes Home medication list reviewed: Yes (no changes) Allergy and home medication list: Allergies cephalexin Allergy Unknown Penicillins Adverse Reaction (Intermediate, Nausea Review of Systems Review of systems same as previous: No (testing to get put on kidney transplant list) Physical Exam Vital signs obtained and entered by: Jennifer Luther NP Blood Pressure: 113/68 Cuff size: regular (left arm) Heart Rate: 51 O2 Saturation: 98 Height: 5 ft 1.5 in Weight: 186 lb 3.2 oz Weight change since last visit: 12 lb loss Body Mass Index: 34.6 BMI Classification: Obese Impression and Plan 1. Obstructive Sleep Apnea-Hypopnea Syndrome, moderate, with good treatment compliance and good apnea control. On CPAP therapy, the patient has better sleep quality and is more rested overall. She has significant improvement of her sleep apnea and is comfortable with CPAP use. She has been getting her supplies on [employer] but would like to try to have her supplies covered by insurance. We will do a transfer of DME supplier so that she can get her supplies as needed. I will have my sales program coordinator inform of DME options. A DWO prescription will then be made. Patient advised to contact this office if further supply problems. Patient's apnea severity and rationale for treatment to reduce apnea, improve sleep quality and reduce cardiovascular and cerebrovascular events was reviewed. I also reviewed the benefit of consistent device use of CPAP for hypertension, cardiac disease, diabetes. 2. Obesity, unspecified. Currently patients BMI is 34.6. She has lost weight. Obesity increases the risk of apnea, CPAP pressure requirements and overall health risks especially cardiovascular and diabetes. Thus patient is advised to lose weight. * Continue auto CPAP pressure at 8-12 cmH2O * Update supply prescription. * Notify me if snoring with mask or feeling that the pressure is too much or too little * Attempt to lose weight * Call this office if any problems using CPAP * Return for follow up in 12 months, or sooner if concerns arise Counseling Topics: Spare mask, Weight loss health impact Prescriptions: Device supplies (with Transfer DME) Follow up with Sleep Care in: 1 year Visit Type: In Office Time Spent with Patient (minutes): 21 Provider Statement: I spent 100% of the Face to Face Visit with the patient with greater than 50% spent counseling the patient and coordination of care.
[2024-07-03 10:11] VITALS: BP 113/68; O2SAT 98
== END 2024-07-03 09:04 | disposition home or self-care (01) ==
LOC: SC 09:03
PROVIDERS: ATTEND Nurse Practitioner Family
DX: G47.33 Obstructive sleep apnea (adult) (pediatric) (principal); E66.9 Obesity, unspecified; Z68.34 Body mass index [BMI] 34.0-34.9, adult
CPT/HCPCS: 99212; 99213

== ENCOUNTER 2024-07-16 08:37 | Outpatient (CLI) | payer OTHER ==
[2024-07-16 08:52] LABS: BASOPHILS # (AUTO) 0.1 10^3/uL (0.0-0.1); BASOPHILS % (AUTO) 1.2 %; EOSINOPHILS # (AUTO) 0.2 10^3/uL (0.0-0.7); EOSINOPHILS % (AUTO) 2.9 %; HCT - HEMATOCRIT 27.1 % (37.0-47.0); HGB - HEMOGLOBIN 8.3 g/dL (12.0-16.0); LYMPHOCYTES # (AUTO) 1.2 10^3/uL (1.5-3.5); LYMPHOCYTES % (AUTO) 17.7 %; MEAN CORPUSCULAR HEMOGLOBIN 29.3 pg (27.0-31.0); MEAN CORPUSCULAR HGB CONC 30.6 g/dL (32.0-36.0); MEAN CORPUSCULAR VOLUME 95.8 fL (81.0-99.0); MEAN PLATELET VOLUME 9.5 fL (7.9-10.8); MONOCYTES # (AUTO) 0.8 10^3/uL (0.0-1.0); MONOCYTES % (AUTO) 12.1 %; NEUTROPHILS # (AUTO) 4.3 10^3/uL (1.5-6.6); NEUTROPHILS % (AUTO) 65.9 %; PLT - PLATELET COUNT 214 10^3/uL (130-450); RED BLOOD COUNT 2.83 10^6/uL (4.20-5.40); RED CELL DISTRIBUTION WIDTH 13.5 % (12.0-15.0); WHITE BLOOD COUNT 6.5 x10^3/uL (4.8-10.8)
[2024-07-16 09:01] LABS: CREATININE 2.2 mg/dL (0.6-1.3); POTASSIUM 5.3 mmol/L (3.5-4.5)
== END 2024-07-16 08:38 | disposition home or self-care (01) ==
LOC: LAB 08:37
PROVIDERS: ATTEND Internal Medicine Nephrology
DX: N05.9 Unspecified nephritic syndrome with unspecified morphologic changes (principal); D70.9 Neutropenia, unspecified
CPT/HCPCS: 36415; 80048; 85025

== ENCOUNTER 2024-07-23 09:25 | Outpatient (CLI) | payer OTHER ==
[2024-07-23 09:33] LABS: HCT - HEMATOCRIT 27.3 % (37.0-47.0); HGB - HEMOGLOBIN 8.5 g/dL (12.0-16.0); MEAN CORPUSCULAR HEMOGLOBIN 29.4 pg (27.0-31.0); MEAN CORPUSCULAR HGB CONC 31.1 g/dL (32.0-36.0); MEAN CORPUSCULAR VOLUME 94.5 fL (81.0-99.0); MEAN PLATELET VOLUME 9.4 fL (7.9-10.8); RED BLOOD COUNT 2.89 10^6/uL (4.20-5.40); RED CELL DISTRIBUTION WIDTH 13.2 % (12.0-15.0); WHITE BLOOD COUNT 6.3 x10^3/uL (4.8-10.8)
== END 2024-07-23 09:26 | disposition home or self-care (01) ==
LOC: LAB 09:25
PROVIDERS: ATTEND Internal Medicine Nephrology
DX: D50.0 Iron deficiency anemia secondary to blood loss (chronic) (principal); D70.9 Neutropenia, unspecified; D63.1 Anemia in chronic kidney disease; D51.9 Vitamin B12 deficiency anemia, unspecified
CPT/HCPCS: 36415; 82607; 82728; 82746; 83540; 84466; 85027